=== PATIENT | male | born 1965 | race Caucasian/White ===

== ENCOUNTER 2017-03-11 09:55 | Inpatient (IN) ==
[2017-03-11] MEDS ORDERED: Aspirin 81 MG TAB.CHEW PO ONE (10:08)
[2017-03-11] MEDS ORDERED: 0.9 % Sodium Chloride 500 ML IVC ONE (10:08)
--- NOTE | 2017-03-11 10:27 | Emergency Department Note ---
Disposition Clinical Impression: Chronic alcohol abuse, Hyponatremia Hypertension Qualifiers: Hypertension type: essential hypertension Qualified Code(s): I10 - Essential ( primary) hypertension Disposition: Admitted As Inpatient Condition: Good Time of Disposition: 11:07 Recheck wound or abnormal lab - General Chief Complaint: ED Recheck/Abnormal Lab/Rx Stated Complaint: Dangerously low sodium, left ankle pain Time Seen by Provider: 03/11/17 09:57 Source: patient, family Limitations: no limitations Nursing Notes Reviewed: Yes Vital Signs Reviewed: Yes - History of Present Illness HPI Narrative: Patient presents emergency room at the request of his primary care provider for an abnormal lab result. Patient seen his PCP yesterday had laboratory workup and an image of his ankle completed. He was contacted today to come to the emergency room for a dangerously low sodium. Patient has had this in the past he was just curious as to how low it was today that required him to come to the emergency room. Denied any other symptoms or complaints prior to today's evaluation Pt Subjective Complaint: abnormal lab(s) Symptoms Since Prior Visit: no new symptoms Associated symptoms: none - Related Data Home Medications Medication Instructions Recorded Confirmed Lisinopril [Zestril] 40 mg PO QAM #0 07/31/15 02/02/16 Aspirin Enteric Coated [Aspirin EC] 81 mg PO QAM 01/12/16 02/02/16 Previous Rx's Medication Instructions Recorded Sodium Chloride 1 gm PO TID tablet 01/23/16 Cefdinir [Omnicef] 300 mg PO BID #14 capsule 02/09/16 Folic Acid 1 mg PO DAILY tablet 02/09/16 OxyCODONE/APAP 5/325 [Percocet 1 - 2 tab PO Q4HR PRN #10 tablet 02/09/16 5/325 MG] Thiamine (B-1) [Vitamin B-1] 100 mg PO DAILY tablet 02/09/16 TraMADol [Ultram] 50 mg PO BID #7 tablet 02/09/16 Vitamin B Complex/Vit C/Vit E 1 each PO DAILY tablet 02/09/16 [Stresstab] Allergies Allergy/AdvReac Type Severity Reaction Status Date / Time No Known Allergies Allergy Verified 07/31/15 10:00 All systems ED: reviewed and negative except as stated. Constitutional: Denies: fever Cardiovascular: Denies: chest pain, palpitations, dyspnea on exertion Gastrointestinal: Denies: abdominal pain, nausea, vomiting, diarrhea Genitourinary: Denies: urgency, dysuria Musculoskeletal: Reports: other (<) Psychiatric: Denies: anxiety, depression Past Medical History - Past Medical History Attestation: Yes The following information was validated with the patient. Source: patient, old records reviewed Medical history: Reports: hypertension, peripheral artery disease, other Surgical history: Reports: cataract (Right AKA 01/20/16), LE stent(s) (Left iliac stent), vascular surgery (Right femoral endarterectomy), other (Right AKA 01/18/16 ) Psychiatric history: Reports: no psych history - Social History Smoking Status: Current every day smoker Smokeless Tobacco Status: No Alcohol use: Reports: heavy Drug use: Reports: none Physical Exam - General Limitations: no limitations General appearance: alert, in no apparent distress - Head Head exam: atraumatic, normocephalic, normal inspection - Chest Chest inspection: Present: normal inspection, symmetric chest wall rise - Respiratory Respiratory exam: Present: normal lung sounds bilaterally. Absent: respiratory distress, wheezes, stridor, accessory muscle use - Cardiovascular Cardiovascular exam: Present: normal rhythm, tachycardia, normal heart sounds - Abdominal Exam Abdominal exam: Present: soft, Non-Tender, normal bowel sounds. Absent: tenderness, distention, guarding, rebound, rigidity, Johnson's sign, Rovsing's sign, tenderness at McBurney's Point - Back Exam Back exam: Present: normal inspection, full ROM. Absent: tenderness - Neurological Exam Neurological exam: Present: alert, oriented X3, CN II-XII intact - Psychiatric Psychiatric exam: Present: normal affect, normal mood - Skin Skin exam: Present: warm, dry, intact, normal color Course Course Narrative: Patient seen and examined at that arrival. See history of present illness. 51- year-old male presents to emergency room for evaluation of an abnormal lab. He was called by his PCP and told that he had a dangerously low sodium. Patient has chronic hyponatremia in the past several wall was around 128 to 1:30 range. Patient is known to have alcohol abuse and smoking history issues. Patient does deny any other medical concerns or symptoms this time. Vital signs are reviewed on presentation show a tachycardia and hypertension. He is on hypertensive medications but was stopped from his hydrochlorothiazide secondary to the hyponatremia. Patient is also persistently hypertensive. Patient did just start with a new primary care provider and was started back on his hydrochlorothiazide despite his chronic history of hyponatremia. Patient also was started on a different blood pressure medication. He denies any symptoms has no fevers chills nausea vomiting or diarrhea. Denies chest pain shortness of breath headache or vision changes. His only other complaint was left ankle pain. He was seen by his PCP and had an evaluation with x-ray performed yesterday. I reviewed that imaging evaluation here in the ED. The image was negative for acute bony abnormality. Patient will have laboratory workup completed. We will adjust his blood pressure as needed. Otherwise patient has no other complaints or symptoms. Disposition pending treatment course. Patient is supposed to be on a fluid restriction diet at this time - Reevaluation(s) Reevaluation #1: Patient found to have a sodium of 124. He has been as low as 106 in the past. Patient has no other acute symptoms. EKG shows normal sinus rhythm with no acute pathology. It was reviewed and compared to an EKG done on 02/02/16. At EKG was read as normal as well. Patient this point still has persistently elevated hypertension. Patient will be given a one-time dose Lopressor here in the emergency room as well as discuss her admission here at the hospital secondary to medication related issues causing his hyponatremia. Patient will have this evaluation treatment was completed here in the ER and admission process to be completed for home. Patient is stable. Hospitals patient this time for admission. No acute complications on this time patient has no other complaints at this point. Labs are reviewed and he has no acute signs of end organ damage or related to kidney dysfunction at this time. Last alcohol consumption was yesterday and one beer. No history of delirium tremens. Hospitals will be informed of this Time: 11:03 Reevaluation #2: Patient discussed with the hospitalist Dr. baeza. We reviewed the patient's presentation symptoms medical history including hyponatremia hypertension and chronic alcohol abuse. He accepted the patient for inpatient evaluation and stabilization of his medical condition in medication review. Patient is otherwise stable resting comfortably in bed we will continue to monitor the admission process is completed Time: 11:20 Vital Signs Temperature 98.3 F 03/11/17 09:56 Pulse Rate 109 03/11/17 09:56 Respiratory Rate 18 03/11/17 09:56 Blood Pressure 195/91 03/11/17 09:56 O2 Sat by Pulse Oximetry 100 03/11/17 09:56 Temperature 98.3 F 03/11/17 09:56 Pulse Rate 82 03/11/17 10:25 Respiratory Rate 18 03/11/17 10:25 Blood Pressure 197/103 03/11/17 10:25 O2 Sat by Pulse Oximetry 100 03/11/17 10:25 Oxygen Delivery Oxygen Delivery Room Air Recheck wound or abnormal lab - MDM Narrative Medical decision making narrative: Hyponatremia, hypertension, alcohol abuse - Medical Records Medical records reviewed: Yes I reviewed the patient's medical records. - Lab Data Lab results reviewed: Yes I reviewed the patient's lab results. Result diagrams: 03/11/17 10:22 03/11/17 10:22 - Radiology Data Radiology results reviewed: Yes I reviewed the patient's radiology results. - EKG Data EKG attestation: Yes I reviewed and interpreted this EKG. EKG shows normal: sinus rhythm, axis, intervals, QRS complexes, ST-T waves Rate: normal Rhythm: NSR [place]/QRS: normal T wave inversions noted in: aVL Hyperacute T waves: v2, v3, v4, v5, v6 When compared to previous EKG there are: no significant changes Interpretation: no acute changes Attestation Statement - Attestation Attestation: I personally interviewed and examined this patient and my medical decision- making was reviewed with the ED Resident Physician, Dr. Sheth. I agree with the documented findings, disposition and treatment plan as described except to the extent set forth below. History this 51-year-old white male who is sent as a new primary care physician that he has been seeing for the past week in regards to low sodium levels. Patient has a history of chronic hyponatremia secondary to his daily alcohol drinking. Patient states he drinks 3-4 beers daily and has been hospitalized in the past for hyponatremia that has been relatively euvolemic secondary to beer intake. Patient denies any dizziness or lightheadedness, no chest pain or pressure, no abdominal pain or back pain, no lightheadedness or syncope, no diaphoresis, no nausea vomiting or diarrhea, and no bright red blood per rectum. Patient states he was called by his doctor this morning in regards to his low sodium levels and told to go to the emergency department. Patient's also found to be extremely hypertensive, his med list today shows that he is on lisinopril/hydrochlorothiazide for his blood pressure and states he did take this this morning and has been taking on a regular basis. Apparently according to medical records this is been discontinued by nephrology during one of his prior admissions for hyponatremia but he is with a new primary care physician who restarted his medication in the past week. Patient has really no complaints at bedside today. Patient found to be hyponatremic with a sodium of 124. Patient also has been consistently hypertensive here despite taking his home meds. Remainder of lab evaluation is unremarkable or chronic in nature. Patient's exam, I agree with exam findings as documented in the chart. Patient remains hemodynamically monitored on continuous cardiac monitoring secondary to blood pressure, placed in seizure precautions with low sodium as well as history of EtOH and possible withdrawal. Patient denies any history of alcohol withdrawal or seizure activity when not drinking. Will admit patient for further evaluation and treatment of acute on chronic hyponatremia.
[2017-03-11 10:28] LABS: Basophils % 0.9 %; Eosinophils # 0.1 K/mcL (0.0-0.6); Eosinophils % 1.4 %; Hemoglobin 14.9 g/dL (12.9-16.9); Immature Granulocytes % 0.3 % (0-4); Immature Platelets 7.6 % (1.1-6.1); Lymphocytes # 0.6 K/mcL (0.6-4.6); Lymphocytes % 17.7 %; Mean Corpuscular HGB Conc 36.3 g/dL (31.6-35.5); Mean Corpuscular Hemoglobin 31.8 pg (28.0-33.3); Mean Corpuscular Volume 87.4 fL (83.0-100.0); Mean Platelet Volume 10.1 fL (9.4-12.4); Monocytes # 0.4 K/mcL (0.0-1.3); Neutrophils # 2.4 K/mcL (1.6-8.9); Platelet Count 272 K/mcL (140-400); Red Blood Count 4.69 M/mcL (4.19-5.50); Red Cell Distribution Width 13.3 % (11.5-14.5); Segmented Neutrophils % 69.7 %
[2017-03-11 10:41] LABS: BUN/Creatinine Ratio 18 (6-26); Blood Urea Nitrogen 20 mg/dL (8-26); Carbon Dioxide 25 mEq/L (19-29); Chloride 85 mEq/L (98-109); Glucose 91 mg/dL (70-99); Osmolality,Calculated 260 (280-300); Potassium 4.1 mEq/L (3.5-4.5); Sodium 124 mEq/L (136-145); eGFR For African Americans > 60 (> 60); eGFR For Non-African Americans > 60 (> 60)
[2017-03-11 10:42] LABS: Albumin 4.4 g/dL (3.5-5.0); Albumin/Globulin Ratio 1.3 (1.1-2.2); Bilirubin,Direct 0.5 mg/dL (0.0-0.5); Bilirubin,Indirect 0.8 mg/dL (0.0-1.2); Bilirubin,Total 1.3 mg/dL (0.2-1.2); Globulin 3.3 g/dL (2.4-3.5); Magnesium 2.3 mg/dL (1.6-2.6); Total Protein 7.7 g/dL (6.0-8.3)
[2017-03-11 10:54] LABS: Ethanol < 10 mg/dL (0-10)
[2017-03-11] MEDS ORDERED: *HR* Metoprolol 5 MG/5 ML VIAL IVP ONE (11:00)
[2017-03-11] MEDS ORDERED: Acetaminophen 325 MG TABLET PO PRN (11:39)
[2017-03-11] MEDS ORDERED: Naloxone 0.4 MG/ML INJ IVP PRN (11:39)
[2017-03-11] MEDS ORDERED: *HR* Labetalol 20 MG/4 ML SYRINGE IVP PRN (11:43)
[2017-03-11] MEDS ORDERED: *HR* LORazepam 2 MG/ML VIAL IVP PRN (11:45)
--- NOTE | 2017-03-11 11:52 | Internal Med History&Physical ---
Date of Encounter: 03/11/17 Time of Encounter: 11:30 Assessment and Plan (1) Hypertensive urgency Current visit: Yes Status: Acute Patient with elevated blood pressure. Observation hospital. Will treat with oral and IV antihypertensive medications. Monitor blood pressure closely. Currently does not show any signs of end - organ damage. High-risk for complications. (2) Chronic alcohol abuse Current visit: Yes Status: Chronic Patient with history of chronic alcohol abuse. We will monitor for alcohol withdrawal. Place on [facility] protocol (3) Hyponatremia Current visit: Yes Status: Acute Acute on chronic hyponatremia. Continue free water restriction. Stop hydrochlorothiazide. Continue salt tablets. We will monitor sodium levels. Internal Medicine - H&P: HPI Chief complaint: Abnormal labs Admitted From: Emergency Dept Plans for Post Hospital Care: Home History of present illness: Mr. Ramirez is a 51 year old male patient with a history of chronic hyponatremia with concern for SIADH, chronic alcoholism, hypertension also asked to come to the ER by his primary care provider due to low sodium levels. The patient sodium levels usually is around 130. He had blood work done yesterday which showed a sodium of 124. He denies any dizziness or lightheadedness. The patient was also started on hydrochlorothiazide recently. On arrival to ER, the patient had severely elevated blood pressure. He denies any chest pain, headache, nausea or vomiting. No palpitations. No shortness of breath. He does complain of some left ankle pain which has been dealing with for 2 weeks. He says this has been worked up with an x-ray which did not show any fracture. The patient continues to drink alcohol and drinks about 1 beer daily and 2-3 on weekends. Past Med Surg Social Fam HX - Past Medical History Attestation: Yes The following information was validated with the patient. Source: patient, old records reviewed Medical history: hypertension, peripheral artery disease, other Psychiatric history: no psych history - Past Surgical History Surgical History: cataract (Right AKA 01/20/16), LE stent(s) (Left iliac stent), vascular surgery (Right femoral endarterectomy), other (Right AKA 01/18/16) - Social History Smoking Status: Current every day smoker Smokeless Tobacco Status: No Alcohol use: heavy Drug use: none - Family History Father Adopted: No Family Member Ethnicity: Non- Living Status: Still Living Hx Family Cardiac Disorders: Yes (HTN) Hx Family Cancer: Yes (LUNG CANCER) Mother Adopted: No Living Status: Hx Family Cardiac Disorders: Yes (hypertension) Hx Family Respiratory Disorders: No Hx Family Cancer: No Hx Family GI Disorders: No Hx Family Endocrine Disorder: No Hx Family Neuromuscular Disorders: No Hx Family Neurologic Disorders: No Hx Family HEENT Disorders: No Hx Family Autoimmune Disorders: No Internal Medicine - H&P: Meds Lisinopril [Zestril] 40 mg PO QAM #0 07/31/15 [History] Aspirin Enteric Coated [Aspirin EC] 81 mg PO QAM 01/12/16 [History] Sodium Chloride 1 gm PO TID tablet 01/23/16 [Rx] Cefdinir [Omnicef] 300 mg PO BID #14 capsule 02/09/16 [Rx] Folic Acid 1 mg PO DAILY tablet 02/09/16 [Rx] OxyCODONE/APAP 5/325 [Percocet 5/325 MG] 1 - 2 tab PO Q4HR PRN #10 tablet [Rx] Thiamine (B-1) [Vitamin B-1] 100 mg PO DAILY tablet 02/09/16 [Rx] TraMADol [Ultram] 50 mg PO BID #7 tablet 02/09/16 [Rx] Vitamin B Complex/Vit C/Vit E [Stresstab] 1 each PO DAILY tablet 02/09/16 [Rx] Allergies No Known Allergies Allergy (Verified 07/31/15 10:00) All Systems PM: A 10-system review of systems was performed and is negative for pertinent findings except as documented above in the HPI. - Constitutional Constitutional: no chills, no fever(s), no night sweats - EENT Eyes: no change in vision, no discharge, no pain, no photophobia Ears: no ear discharge, no ear pain, no tinnitus Nose, mouth and throat: no dysphagia, no nasal discharge, no neck pain, no sore throat - Cardiovascular Cardiovascular ROS IM: no chest pain, no diaphoresis, no dyspnea, no lightheadedness, no palpitations, no syncope - Respiratory Respiratory: no cough, no dyspnea, no wheezing, no excessive phlegm production - Gastrointestinal Gastrointestinal: no abdominal pain, no diarrhea, no hematemesis, no hematochezia, no melena, no nausea, no vomiting - Musculoskeletal Musculoskeletal ROS IM: no numbness, no tingling - Integumentary Integumentary IM: no rash, no unusual bruising - Neurological Neurological ROS: no confusion, no convulsions, no focal weakness, no numbness, no tingling, no tremor(s) - Hematologic/Lymphatic Hematologic/Lymphatic: no easy bruising - Constitutional Vitals: Temp Pulse Resp BP Pulse Ox 98.3 F 82 16 212/118 100 03/11/17 09:56 03/11/17 10:25 03/11/17 11:30 03/11/17 11:30 03/11/17 10:25 General appearance: Present: cooperative, A&O X 3, pleasant, no acute distress, answers questions appropriately - Eye Eye exam: Present: EOMI, PERRL - Neck Neck exam general surgery: Present: supple, trachea midline. Absent: lymphadenopathy - Cardiovascular Cardiovascular exam: Present: RRR, +S1, +S2. Absent: diastolic murmur, gallop, rubs, systolic murmur - GI/Abdominal GI/Abdominal exam: Present: normal bowel sounds, soft, no peritoneal signs. Absent: distended, tenderness - Extremities Exam Extremities exam: Present: warm, radial pulses palpable and symetrical. Absent : calf tenderness, cyanotic, pedal edema Additional comments: Status post right AKA - Neurological Exam Neurological exam: Present: CN II-XII intact, oriented X3, no focal deficits. Absent: facial droop, speech deficit - Skin Skin exam: Present: dry, intact Internal Med - H&P Results - Labs CBC & Chem 7: 03/11/17 10:22 03/11/17 10:22 - Impressions Impressions Chest X-Ray 03/11/17 10:08 IMPRESSION: No acute cardiopulmonary disease. D/ / Jose Reilly MD / Jose Reilly MD Interpreting Provider: Jose Reilly MD - Attending Attestation This document has been at least partially created by [employer] recognition technology by Dr. Stewart. Errors in grammar, wording or other phrases may exist. If errors are found after the documentation is signed, they will be addressed individually in the addendum section of this document when appropriate.
[2017-03-11] MEDS: Lisinopril 20 MG TABLET PO SCH (12:35)
--- NOTE | 2017-03-11 17:52 | Electrocardiograph Report ---
[place] [id number] Test Date: 2017-03-11 Pat Name: Shay Ramirez Department: 105 Room: [facility] Gender: M Vision Specialist: LEXIE : [id number] Requested By: Demetrius Sheth Order Number: [id number] Reading MD: Agatha Braun Measurements Intervals [place] Rate: 79 P: 69 RI: 127 QRS: 84 QRSD: 90 T: 72 QT: 363 QTc: 398 Interpretive Statements SINUS RHYTHM TALL T-WAVES, SUGGESTS HYPERKALEMIA Electronically Signed On 03-11-2017 17:50:50 EDT by Agatha Braun
[2017-03-11] MEDS: traMADol 50 MG TABLET PO PRN (22:05)
[2017-03-11] MEDS ORDERED: Ketorolac 30 MG/ML VIAL IVP ONE (22:57)
[2017-03-12] MEDS ORDERED: *HR* Heparin 5,000 UNIT/ML VIAL IVP PRN (01:47)
[2017-03-12] MEDS ORDERED: *HR* Heparin 5,000 UNIT/ML VIAL IVP ONE (01:47)
--- NOTE | 2017-03-12 02:21 | Event Note ---
Date of Encounter: 03/12/17 Time of Encounter: 01:50 I was called that the above pt with severe PAD was complaining of pain in the left foot, his pulses were not palpable and doppler signals were weak, ADAM ordered was reported as 0.07. Limited exam showed a male who looked far older than his stated age, sitting in bed with no sign of pain or distress, he had right AKA, left foot was of normal color except the toes which were all red and had flaky skin overlying them, the foot was of normal warmth, he could move them without pain, pulses were not palpable. We will start patient on heparin drip and consult vascular surgery to weigh in.
[2017-03-12 02:58] LABS: Eosinophils # 0.1 K/mcL (0.0-0.6); Mean Corpuscular Hemoglobin 32.2 pg (28.0-33.3); Mean Corpuscular Volume 86.4 fL (83.0-100.0); Mean Platelet Volume 10.2 fL (9.4-12.4); Platelet Count 234 K/mcL (140-400); Red Blood Count 3.82 M/mcL (4.19-5.50); Red Cell Distribution Width 13.2 % (11.5-14.5)
[2017-03-12 02:59] LABS: Hemoglobin 12.3 g/dL (12.9-16.9); INR 1.1; Mean Corpuscular HGB Conc 37.3 g/dL (31.6-35.5); Prothrombin Time 11.8 Seconds (9.4-12.1)
[2017-03-12 03:02] LABS: Activated Partial Thrombo Time 29.9 Seconds (26.0-36.0)
[2017-03-12] MEDS: Heparin 25,000 UNIT/500 ML D5W 25,000 UNIT/500 ML MLS IVC SCH (03:03)
[2017-03-12 03:05] LABS: BUN/Creatinine Ratio 25 (6-26); Blood Urea Nitrogen 22 mg/dL (8-26); Calcium 8.9 mg/dL (8.6-10.8); Carbon Dioxide 23 mEq/L (19-29); Chloride 90 mEq/L (98-109); Glucose 89 mg/dL (70-99); Osmolality,Calculated 259 (280-300); Potassium 3.6 mEq/L (3.5-4.5); Sodium 123 mEq/L (136-145); eGFR For African Americans > 60 (> 60); eGFR For Non-African Americans > 60 (> 60)
[2017-03-12 03:23] LABS: Lymphocytes # 1.4 K/mcL (0.6-4.6); Monocytes # 0.2 K/mcL (0.0-1.3); Neutrophils # 2.7 K/mcL (1.6-8.9)
[2017-03-12 03:24] LABS: Platelet Estimate Normal (Normal)
[2017-03-12] MEDS: Lisinopril 20 MG TABLET PO SCH (08:22)
[2017-03-12] MEDS: Folic Acid 1 MG TABLET PO SCH (08:23)
[2017-03-12] MEDS: Thiamine (B-1) 100 MG TABLET PO SCH (08:23)
--- NOTE | 2017-03-12 09:17 | Internal Med Progress Note ---
Date of Encounter: 03/12/17 Time of Encounter: 09:11 - Assessment and plan (1) Critical ischemia of lower extremity Current Visit: No Status: Acute Assessment and plan: appears chronic and severe vascular surgery consulted left toes apears superimposed fungal infection will consult poditric as well (2) Hypertension Current Visit: No Status: Chronic Assessment and plan: uncontrolled add coreg and add norvasc Qualifiers: Hypertension type: essential hypertension Qualified Code(s): I10 - Essential (primary) hypertension (3) Tobacco abuse Current Visit: No Status: Chronic Assessment and plan: chronic (4) Chronic anemia Current Visit: No Status: Chronic Assessment and plan: chronic (5) Chronic hyponatremia Current Visit: No Status: Chronic Assessment and plan: due to beer potomania will reconsult nephrology - Subjective Interval history: Patient with history of hypertension, hyponatremia, alcoholism, and vascular disease, had a right AKA, smoking history patient was admitted from primary physician office sent to the emergency room due to severe hyponatremia sodium was 124 patient yesterday was seen by night physician due to left foot pain and vascular surgery has been consult . ADAM shows as severe vascular insufficiency of 0.07. Leg is warm at this point appear to be a chronic also appears he may have some fungal infection of the toes his sodium is 123 this morning and I will consult nephrology no acute complains - Constitutional Vitals: Temp Pulse Resp BP Pulse Ox 98.5 F 92 16 157/89 98 03/12/17 07:31 03/12/17 07:31 03/12/17 07:31 03/12/17 07:31 03/12/17 07:31 General appearance: Present: cooperative, A&O X 3, pleasant, no acute distress, answers questions appropriately - Eye Eye exam: Present: PERRL, conjuntiva pink, sclera anicteric Pupils: Present: PERRL - Neck Neck exam general surgery: Present: supple, trachea midline. Absent: lymphadenopathy - Respiratory Respiratory exam: Present: CTAB. Absent: accessory muscle use, rales, rhonchi, wheezes - Cardiovascular Cardiovascular exam: Present: RRR, +S1, +S2. Absent: diastolic murmur, gallop, rubs, systolic murmur - GI/Abdominal GI/Abdominal exam: Present: normal bowel sounds, soft, no peritoneal signs. Absent: distended, tenderness - Extremities Exam Extremities exam: Present: tenderness, warm Internal Medicine: Result - Labs CBC & Chem 7: 03/12/17 02:36 03/12/17 02:36 Labs: Short CBC 03/12/17 Range/Units 02:36 WBC 4.3 (4.3-11.1) K/mcL Hgb 12.3 L D (12.9-16.9) g/dL Hct 33.0 L (37.5-50.1) % Plt Count 234 (140-400) K/mcL Neutrophils # 2.7 (1.6-8.9) K/mcL BMP 03/12/17 02:36 Sodium 123 L Potassium 3.6 Chloride 90 L Carbon Dioxide 23 BUN 22 Creatinine 0.89 Glucose 89 Calcium 8.9 - ABG Interpretation ABG results: PT/INR, D-dimer PT 11.8 Seconds (9.4-12.1) 03/12/17 02:36 - VTE Documentation of Mechanical Device: Intermittent pneumatic compression device Consult Discharge Plan - Plan Referrals: Farzad Sharp DO [Primary Care Provider] -
--- NOTE | 2017-03-12 10:02 | Podiatry Consult Note ---
Date of Encounter: 03/12/17 Time of Encounter: 09:59 Assessment and Plan (1) Tinea pedis of left foot Current visit: Yes Status: Acute reviewed with patient that I do not think he has a bacterial soft tissue infection, but he does appear to have fungus on his left foot. ordered miconazole to be appled to left foot twice daily. upon discharge he will require an Rx for ciclopirox 0.77% gel. would avoid oral lamisil with his elevated liver enzymes and h/o alcohol abuse. f/u as out patient with podiatry. (2) PVD (peripheral vascular disease) Current visit: Yes Status: Acute burning pain around his ankle and in his foot may be related to his diminished blood flow, f/u vascular for evaluation History of Present Illness Chief complaint: left foot toes itching, pain HPI: Mr. Ramirez is a 51 year old male admitted with hyponatremia. He complains of his left foot around the toes being itching for a few days. He says it is getting worse and he is trying not to scratch them. He says he has white flaky skin and he has been rubbing them and developed some dark spots on the toes where he was rubbing. He complains of pain around the ankle as well and says he gets a burning pain in his left foot and the toes turn red periodically and goes away after about a half hour. denies f/c/n/v/sob/cp. He has a right AKA. Past Med Surg Social Fam HX - Past Medical History Medical history: hypertension, peripheral artery disease, other Psychiatric history: no psych history - Past Surgical History Surgical History: cataract, LE stent(s), vascular surgery, other - Social History Smoking Status: Current every day smoker Smokeless Tobacco Status: No Alcohol use: heavy Drug use: none - Family History Father Adopted: No Family Member Ethnicity: Non- Living Status: Still Living Hx Family Cardiac Disorders: Yes (HTN) Hx Family Cancer: Yes (LUNG CANCER) Mother Adopted: No Living Status: Hx Family Cardiac Disorders: Yes (hypertension) Hx Family Respiratory Disorders: No Hx Family Cancer: No Hx Family GI Disorders: No Hx Family Endocrine Disorder: No Hx Family Neuromuscular Disorders: No Hx Family Neurologic Disorders: No Hx Family HEENT Disorders: No Hx Family Autoimmune Disorders: No Medications and Allergies Aspirin Enteric Coated [Aspirin EC] 81 mg PO QAM 01/12/16 [History] OxyCODONE/APAP 5/325 [Percocet 5/325 MG] 1 - 2 tab PO Q4HR PRN #10 tablet [Rx] TraMADol [Ultram] 50 mg PO BID #7 tablet 02/09/16 [Rx] Acetaminophen [Tylenol] 1,000 mg PO Q6HR PRN 03/11/17 [History] Ibuprofen [Advil] 400 mg PO Q6H PRN 03/11/17 [History] Lisinopril/Hydrochlorothiazide [Zestoretic 20-12.5 mg Tablet] 1 tab PO DAILY [History] Allergies No Known Allergies Allergy (Verified 07/31/15 10:00) All Systems Reviewed: A 10-system review of systems was performed and is negative for pertinent findings except as documented above in the HPI. Physical Exam - Constitutional Vitals: Temp Pulse Resp BP Pulse Ox 98.5 F 92 16 157/89 98 03/12/17 07:31 03/12/17 07:31 03/12/17 07:31 03/12/17 07:31 03/12/17 07:31 General appearance: no acute distress - Ankle & Foot Exam: left foot no edema, capillary refill time is 3 sec x 5 digits of the left foot. there is flaky skin outside the skin lines consistent with tinea pedis. decreased protective sensation left foot. left foot is warm to touch, nails are thick, dystrophic, yellow-brown and have subungual debris. he has full ROM and at the left ankle. there is no erythema or edema of the ankle. no interdigital maceration. Results - Labs Result Diagrams: 03/12/17 02:36 03/12/17 02:36 Labs: Abnormal lab results RBC 3.82 M/mcL (4.19-5.50) L 03/12/17 02:36 Hgb 12.3 g/dL (12.9-16.9) L D 03/12/17 02:36 Hct 33.0 % (37.5-50.1) L 03/12/17 02:36 MCHC 37.3 g/dL (31.6-35.5) H 03/12/17 02:36 Immature Plt Fraction 7.6 % (1.1-6.1) H 03/11/17 10:22 Sodium 123 mEq/L (136-145) L 03/12/17 02:36 Chloride 90 mEq/L (98-109) L 03/12/17 02:36 Calculated Osmolality 259 (280-300) L 03/12/17 02:36 Total Bilirubin 1.3 mg/dL (0.2-1.2) H 03/11/17 10:22 ALT 64 Units/L (0-55) H 03/11/17 10:22 Alkaline Phosphatase 238 Units/L (38-126) H 03/11/17 10:22 H & H 03/12/17 Range/Units 02:36 Hgb 12.3 L D (12.9-16.9) g/dL Hct 33.0 L (37.5-50.1) % All other labs normal. Consult Discharge Plan - Plan Referrals: ColFarzad yan DO [Primary Care Provider] - (patient will need call his PCP himself. per [facility])
--- NOTE | 2017-03-12 12:40 | Nephrology Consult Note ---
Date of Encounter: 03/12/17 Time of Encounter: 12:36 Assessment and Plan (1) Hyponatremia Current Visit: Yes Status: Acute Patient with acute on chronic hyponatremia that is likely multifactorial. Patient is known to have chronic hyponatremia likely from beer potomania His baseline is not established, but is likely the high 120s or low 130s based on labs available to me. His acute hyponatremia is likey related to HCTZ and nausea which can release ADH. His most recent decline in the hospital is likely related to the D5 carrier solution for heparin. I will order a work-up for his hyponatremia. I will follow his sodium closely as I would not want it to increase by more than 6-8meq/l/24hours. I recommend free water restriction. Will give a trial of gentle fluid administration. (2) Chronic alcohol abuse Current Visit: Yes Status: Chronic Per primary team. CIWA protocol. (3) Hypertension Current Visit: Yes Status: Chronic D/c HCTZ. Agree with antihypertensive regimen. His blood pressure seems to be improving. Titrate antihypertensive medication as needed. Will check TSH, renin and aldosterone. Qualifiers: Hypertension type: essential hypertension Qualified Code(s): I10 - Essential (primary) hypertension (4) PVD (peripheral vascular disease) Current Visit: Yes Status: Acute per primary team. He is on heparin. I have contacted pharmacy to change the carrier solution to 0.9, but they report that they do not carry heparin for the floor with a 0.9 carrier solution. Podiatry following. (5) Nausea Current Visit: Yes Status: Acute Etiology is unclear and may be gone. He has an appetite and wants to eat. History of Present Illness - Reason for Consult Consult date: 03/12/17 hyponatremia - Chief Complaint Hyponatremia - History of Present Illness 51 yo man with a history of hyponatremia who presents after his primary care team found that he had a low sodium. Patient reports he has been in his usual state of health with the exception of occasional nausea over the last few weeks without emesis. His primary care team has been adjusting his antihypertensive regimen and a little over a week ago added HCTZ. The patient reports continued consumption of 2 12 ounce beers daily. He denies chest pain, shortness of breath, or other complaint. Past Med Surg Social Fam HX - Past Medical History Medical history: hypertension, peripheral artery disease, other Psychiatric history: no psych history - Past Surgical History Surgical History: cataract, LE stent(s), vascular surgery, other - Social History Smoking Status: Current every day smoker Smokeless Tobacco Status: No Alcohol use: heavy Drug use: none - Family History Father Adopted: No Family Member Ethnicity: Non- Living Status: Still Living Hx Family Cardiac Disorders: Yes (HTN) Hx Family Cancer: Yes (LUNG CANCER) Mother Adopted: No Living Status: Hx Family Cardiac Disorders: Yes (hypertension) Hx Family Respiratory Disorders: No Hx Family Cancer: No Hx Family GI Disorders: No Hx Family Endocrine Disorder: No Hx Family Neuromuscular Disorders: No Hx Family Neurologic Disorders: No Hx Family HEENT Disorders: No Hx Family Autoimmune Disorders: No Medications and Allergies Aspirin Enteric Coated [Aspirin EC] 81 mg PO QAM 01/12/16 [History] OxyCODONE/APAP 5/325 [Percocet 5/325 MG] 1 - 2 tab PO Q4HR PRN #10 tablet [Rx] TraMADol [Ultram] 50 mg PO BID #7 tablet 02/09/16 [Rx] Acetaminophen [Tylenol] 1,000 mg PO Q6HR PRN 03/11/17 [History] Ibuprofen [Advil] 400 mg PO Q6H PRN 03/11/17 [History] Lisinopril/Hydrochlorothiazide [Zestoretic 20-12.5 mg Tablet] 1 tab PO DAILY [History] Allergies No Known Allergies Allergy (Verified 07/31/15 10:00) Review of Systems All Systems: reviewed and no additional remarkable complaints except as stated ( as documented in the HPI.) Exam - Vital Signs Vital signs: Initial Vital Signs Temp Pulse Resp BP Pulse Ox 98.3 F 109 18 195/91 100 03/11/17 09:56 03/11/17 09:56 03/11/17 09:56 03/11/17 09:56 03/11/17 09:56 Vital Signs - Last 8 Hours Temp Pulse Resp BP Pulse Ox 03/12/17 07:31 98.5 F 92 16 157/89 98 Intake and Output 03/11/17 03/12/17 03/12/17 23:59 07:59 15:59 Intake Total 0 / 0 57 / 57 Output Total 750 / 750 300 / 300 Balance -750 / -750 -300 / -300 57 / 57 Intake: IV Fluids / 57 Heparin 25,000 UNIT/500 / 57 ML D5W 25,000 unit In 500 ml @ 12 UNIT/KG/HR 7.62 mls/hr IVC .Q24H [facility] Rx#: [id number] Oral 0 / 0 0 / 0 Output: Urine 750 / 750 300 / 300 Other: Meal NPO Percent of Meal Consumed 0% Weight 33.067 kg Patient Weight 03/12/17 23:59 Weight 33.067 kg - General Appearance General appearance: well-developed, well-nourished, chronically ill EENT: ATNC Neck: supple Respiratory: clear Cardiology: no edema, regular rate, regular rhythm Gastrointestinal: normoactive bowel sounds, no tenderness Integumentary: warm and dry Neurologic: alert and oriented x3 Musculoskeletal: no cyanosis Psychiatric: mood/affect appropriate Results - Lab Results 03/12/17 02:36 03/12/17 02:36 Most recent lab results Calcium 8.9 mg/dL (8.6-10.8) 03/12/17 02:36 Magnesium 2.3 mg/dL (1.6-2.6) 03/11/17 10:22 Consult Discharge Plan - Plan Referrals: Farzad Sharp DO [Primary Care Provider] - (patient will need call his PCP himself. per Dr. Yu Office)
[2017-03-12] MEDS ORDERED: 0.9 % Sodium Chloride 500 ML IVC ONE (13:00)
[2017-03-12 13:51] LABS: Thyroid Stimulating Hormone 1.785 mcIU/mL (0.350-4.840)
[2017-03-12] MEDS ORDERED: 0.9 % Sodium Chloride 500 ML ONE (14:27)
[2017-03-12] MEDS: Miconazole 2% cream 118 GM TUBE TP SCH ×2 (14:32→22:49)
[2017-03-12] MEDS: *HR* Heparin 5,000 UNIT/ML VIAL IVP PRN (17:51)
--- NOTE | 2017-03-12 18:00 | Vascular/Endovasc Consult Note ---
Date of Encounter: 03/12/17 Time of Encounter: 12:50 Assessment and Plan (1) Atherosclerotic peripheral vascular disease with rest pain Current Visit: Yes Status: Chronic The patient has a long history of peripheral vascular disease and has previously undergone a right above knee amputation. He currently ambulates with a prosthesis. He reports chronic intermittent left foot and ankle pain. HIs foot is warm with intact sensory and motor function on exam today. He has a fungal infection at his toes and was evaluated by podiatry. The patient has a diminished pulse exam and his left ADAM was noted to be 0.15. He has no signs or symptomat of acute limb threatening ischemia. He will require further evaluation with angiography after his acute issues are resolved. He is currently on a heparin drip. (2) Hypertension Current Visit: Yes Status: Chronic He was counseled regarding atherosclerotic risk factor reduction. Qualifiers: Hypertension type: essential hypertension Qualified Code(s): I10 - Essential (primary) hypertension (3) Chronic anemia Current Visit: Yes Status: Chronic (4) Chronic hyponatremia Current Visit: Yes Status: Chronic (5) COPD (chronic obstructive pulmonary disease) with emphysema Current Visit: Yes Status: Chronic Qualifiers: Emphysema type: panlobular Qualified Code(s): J43.1 - Panlobular emphysema (6) Tobacco abuse Current Visit: Yes Status: Chronic He was counseled regarding smoking cessation. - History of Present Illness Consult date: 03/12/17 Requesting physician: Nitesh Parks Consult reason: Peripheral vascular disease Chief complaint: left leg pain History of present illness: Mr. Ramirez is a 51 year old male with an extensive history of peripheral vascular disease. He has undergone multiple procedures on the right lower extremity and ultimately required a right above knee amputation. The patient presented to the ER with hyponatremia and was admitted for further evaluation and management. The patient complained of leg foot pain overnight and was seen by the hospitalist group. Vascular labs were ordered and noted to be abnormal. Vascular Surgery was not notified of the consultation overnight. However, the patient was noted to be on the vascular consult list and review of the records revealed the consult in the orders. The patient reports chronic intermittent pain in the left forefoot and ankle. He reports that the pain has subsided since last night. He denies any disabling claudication when using his prosthesis. He denies rest pain, ulceration or gangrene. He denies motor or sensory loss. He reports a fungal infection in the left toes. He denies chest pain or shortness of breath. Past Med Surg Social Fam HX - Past Medical History Medical history: hypertension, peripheral artery disease, other Psychiatric history: no psych history - Past Surgical History Surgical History: cataract, LE stent(s), vascular surgery (right above knee ampuation), other - Social History Smoking Status: Current every day smoker Smokeless Tobacco Status: No Alcohol use: heavy Drug use: none - Family History Father Adopted: No Family Member Ethnicity: Non- Living Status: Still Living Hx Family Cardiac Disorders: Yes (HTN) Hx Family Cancer: Yes (LUNG CANCER) Mother Adopted: No Living Status: Hx Family Cardiac Disorders: Yes (hypertension) Hx Family Respiratory Disorders: No Hx Family Cancer: No Hx Family GI Disorders: No Hx Family Endocrine Disorder: No Hx Family Neuromuscular Disorders: No Hx Family Neurologic Disorders: No Hx Family HEENT Disorders: No Hx Family Autoimmune Disorders: No Medications and Allergies Aspirin Enteric Coated [Aspirin EC] 81 mg PO QAM 01/12/16 [History] OxyCODONE/APAP 5/325 [Percocet 5/325 MG] 1 - 2 tab PO Q4HR PRN #10 tablet [Rx] TraMADol [Ultram] 50 mg PO BID #7 tablet 02/09/16 [Rx] Acetaminophen [Tylenol] 1,000 mg PO Q6HR PRN 03/11/17 [History] Ibuprofen [Advil] 400 mg PO Q6H PRN 03/11/17 [History] Lisinopril/Hydrochlorothiazide [Zestoretic 20-12.5 mg Tablet] 1 tab PO DAILY [History] Allergies No Known Allergies Allergy (Verified 07/31/15 10:00) All Systems Review: A 10-system review of systems was performed and is negative for pertinent findings except as documented above in the HPI. - Constitutional Constitutional: no chills, no fatigue, no fever(s) - Cardiovascular Cardiovascular: no chest pain at rest, no chest pain with exertion, no dyspnea at rest, no dyspnea on exertion Exam Vital Signs, Last 4 Hours Temp Pulse Resp BP Pulse Ox 03/12/17 16:51 98.6 F 88 14 157/90 99 General: Present: Conversant, No Apparent Distress HEENT: Present: Atraumatic, Normocephaly, Pupils equal Neck: Absent: JVD, Lymphadenopathy, Left Carotid bruit, Right Carotid bruit Cardiac: Present: Reg Rate and Rhythm, Normal S1 and S2, No Murmur Lungs: Present: Normal Breath Sounds, No Wheeze, Rales, Rhonchi Neuro: Present: Alert and responsive, No focal deficits noted, Motor nerves grossly intact, Sensory nerves grossly intact Abdomen: Present: Soft, Non-tender. Absent: Masses Vascular: Present: Normal capillary refill, Amputation(s) (right above knee healed). Absent: Cyanosis, Edema Skin: Present: No rashes noted on visualized skin, Other (fungal infection at left forefoot) Musculoskeletal: Present: No Chest Wall Tenderness Consult Discharge Plan - Plan Referrals: Farzad Sharp DO [Primary Care Provider] - (patient will need call his PCP himself. per Dr. Yu Office)
[2017-03-12] MEDS: traMADol 50 MG TABLET PO PRN (22:49)
[2017-03-13 00:58] LABS: BUN/Creatinine Ratio 18 (6-26); Blood Urea Nitrogen 19 mg/dL (8-26); Calcium 8.5 mg/dL (8.6-10.8); Carbon Dioxide 23 mEq/L (19-29); Chloride 93 mEq/L (98-109); Glucose 103 mg/dL (70-99); Osmolality,Calculated 261 (280-300); Phosphorous 3.2 mg/dL (2.3-4.7); Potassium 3.6 mEq/L (3.5-4.5); Sodium 124 mEq/L (136-145); eGFR For African Americans > 60 (> 60); eGFR For Non-African Americans > 60 (> 60)
[2017-03-13 00:59] LABS: Alanine Aminotransferase 33 Units/L (0-55); Albumin/Globulin Ratio 1.4 (1.1-2.2); Alkaline Phosphatase 142 Units/L (38-126); Aspartate Amino Transferase 14 Units/L (5-34); BUN/Creatinine Ratio 20 (6-26); Bilirubin,Total 0.7 mg/dL (0.2-1.2); Blood Urea Nitrogen 20 mg/dL (8-26); Calcium 8.5 mg/dL (8.6-10.8); Carbon Dioxide 22 mEq/L (19-29); Chloride 92 mEq/L (98-109); Globulin 2.4 g/dL (2.4-3.5); Glucose 104 mg/dL (70-99); Osmolality,Calculated 259 (280-300); Potassium 3.6 mEq/L (3.5-4.5); Sodium 123 mEq/L (136-145); eGFR For African Americans > 60 (> 60); eGFR For Non-African Americans > 60 (> 60)
[2017-03-13 01:01] LABS: Albumin 3.3 g/dL (3.5-5.0); Total Protein 5.7 g/dL (6.0-8.3)
[2017-03-13] MEDS ORDERED: 0.9 % Sodium Chloride 500 ML ONE ×2 (01:12→21:52)
[2017-03-13] MEDS: *HR* Heparin 5,000 UNIT/ML VIAL IVP PRN ×3 (01:27→23:37)
[2017-03-13] MEDS: traMADol 50 MG TABLET PO PRN ×2 (05:19→15:13)
[2017-03-13] MEDS: Folic Acid 1 MG TABLET PO SCH (08:00)
[2017-03-13] MEDS: Lisinopril 20 MG TABLET PO SCH (08:01)
[2017-03-13] MEDS: Thiamine (B-1) 100 MG TABLET PO SCH (08:01)
[2017-03-13] MEDS: Miconazole 2% cream 118 GM TUBE TP SCH ×2 (08:03→20:23)
[2017-03-13] MEDS ORDERED: amLODIPine 5 MG TABLET PO SCH (09:00)
--- NOTE | 2017-03-13 10:41 | Arterial Study Report ---
LE Arterial Physiologic Study Patient Name:Shay Ramirez Order Number:[id number] Procedure Date:03/12/2017 Date:1965Age:51 yrs Gender:Male Lt BP:213 / mmHg Rt.BP:210 / mmHgHeart Rate: Location:[facility] Room #: 51 Office Bookkeeper:Kendy Larkin RVT, YUNI Referring MD:Nitesh Parks MD mba internship:DO Eli Clinton MD:Nik Trujillo MD Primary Indications:r/o ischemic leg Risk Factors Yes/No Hypertension Yes Smoking Current Yes Impressions: Recommendations: After imaging the patient was admitted to the hospital. Test completed on 03/12/2017 at 2:10:41 am. Critical findings reported to Dr. Parks by phone at 2:10:55 am on 03/12/2017 by Kendy Larkin RVT, RDCS. Findings LE Arterial Physiologic Exam: Segmental Pressures: Left: The left posterior tibial pressure is 15 mmHg with an index of 0.07. The left dorsalis pedis pressure is 33 mmHg with an index of 0.15. PVR: Left: The PVR waveforms are severely diminished in the left ankle. Segmental Pressures Side Location Pressure Index Result Left Posterior Tibial 15 0.07 Left Dorsalis Pedis 33 0.15 Ankle Brachial Index Right Systolic Diastolic ADAM Brachial 210 Left Systolic Diastolic ADAM Brachial 213 0.15 Dorsalis Pedis 33 0.15 Posterior Tibial 15 0.07 Updated by Nik Trujillo MD on 03/13/2017 10:35:19 AM with Status of Final electronically signed on 03/13/2017 10:35:44 AM with status of Final
--- NOTE | 2017-03-13 11:39 | Nephrology Progress Note ---
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 I recommend fluid restriction, but he will have a source of free water with his heparin infusion. He seems to have responded to to limited saline infusion yesterday, but is back to a serum sodium of 123. His TSH and random cortisol seem normal. Will start low dose aquaretic. He will need close monitoring of his sodium level. It should not rise above 129 in the next 24 hours. (2) Chronic alcohol abuse Current Visit: Yes Status: Chronic Per primary team. (3) Hypertension Current Visit: Yes Status: Chronic Uncontrolled hypertension. Continue titration of his antihypertensive medication. Will increase amlodipine to 5mg po bid. Qualifiers: Hypertension type: essential hypertension Qualified Code(s): I10 - Essential (primary) hypertension (4) PVD (peripheral vascular disease) Current Visit: Yes Status: Acute Per primary team and vascular surgery. (5) Nausea Current Visit: Yes Status: Acute Resolved. Subjective Principal diagnosis: Hyponatremia Interval history: Patient seen and evaluated. He has no new complaint. His left foot feels better. Review of systems otherwise is stable. Objective - Vital Signs Vital signs: Vital Signs Temp Pulse Resp BP Pulse Ox 03/13/17 07:04 97.8 F 80 13 172/79 97 03/13/17 04:58 175/90 03/13/17 04:21 97.8 F 75 16 190/98 97 03/12/17 23:56 97.9 F 90 18 172/90 98 03/12/17 19:55 98.4 F 90 18 143/71 97 03/12/17 16:51 98.6 F 88 14 157/90 99 03/12/17 13:03 97.9 F 74 14 145/81 98 Intake and Output 03/12/17 03/13/17 03/13/17 23:59 07:59 15:59 Intake Total 819.7 / 819.7 804.6 / 804.6 120 / 120 Output Total 600 / 600 400 / 400 0 / 0 Balance 219.7 / 219.7 404.6 / 404.6 120 / 120 Intake: IV Fluids 49.7 / 49.7 804.6 / 804.6 0.9 % Sodium Chloride 500 500 / 500 ML As .ROUTE .[facility] Rx#:[id number] Heparin 25,000 UNIT/500 49.7 / 49.7 304.6 / 304.6 ML D5W 25,000 unit In 500 ml @ 12 UNIT/KG/HR 7.62 mls/hr IVC .Q24H [facility] Rx#: [id number] Oral 770 / 770 120 / 120 Output: Urine 600 / 600 400 / 400 0 / 0 Other: Meal Dinner Breakfast Percent of Meal Consumed 90% 100% Weight 34.564 kg Patient Weight 03/13/17 23:59 Weight 34.564 kg - General Appearance General appearance: Present: well-developed, well-nourished EENT: Present: ATNC Neck: Present: supple Respiratory: Present: clear Cardiology: Present: no edema, regular rate, regular rhythm Gastrointestinal: Present: normoactive bowel sounds, no tenderness Integumentary: Present: warm and dry Neurologic: Present: alert and oriented x3 Musculoskeletal: Present: no cyanosis Psychiatric: Present: mood/affect appropriate - Lab 03/12/17 02:36 03/13/17 00:30 Most recent lab results Calcium 8.5 mg/dL (8.6-10.8) L 03/13/17 00:30 Phosphorus 3.2 mg/dL (2.3-4.7) 03/13/17 00:30 Magnesium 2.3 mg/dL (1.6-2.6) 03/11/17 10:22 - VTE Documentation of Mechanical Device: Intermittent pneumatic compression device Consult Discharge Plan - Plan Referrals: Farzad Sharp DO [Primary Care Provider] - (patient will need call his PCP himself. per [facility])
--- NOTE | 2017-03-13 13:37 | Internal Med Progress Note ---
Date of Encounter: 03/13/17 Time of Encounter: 13:35 - Assessment and plan (1) Critical ischemia of lower extremity Current Visit: No Status: Acute Assessment and plan: chronic vacular insufficiency per vascular surgery needs angiogram suggests proceed with angiogram no mejor medical issues at this point (2) Hypertension Current Visit: Yes Status: Chronic Assessment and plan: BP much better Qualifiers: Hypertension type: essential hypertension Qualified Code(s): I10 - Essential (primary) hypertension (3) Tobacco abuse Current Visit: Yes Status: Chronic Assessment and plan: chronic (4) Chronic anemia Current Visit: Yes Status: Chronic Assessment and plan: mild hgb stable (5) Chronic hyponatremia Current Visit: Yes Status: Chronic Assessment and plan: appreciate nephrology evaluation and treatment SIADH - Subjective Interval history: Patient with history of hypertension, hyponatremia, alcoholism, and vascular disease, had a right AKA, smoking history patient was admitted from primary physician office sent to the emergency room due to severe hyponatremia sodium was 124 patient yesterday was seen by night physician due to left foot pain and vascular surgery has been consult . ADAM shows as severe vascular insufficiency of 0.07. Leg is warm at this point appear to be a chronic also appears he may have some fungal infection of the toes his sodium is 123 this morning and I will consult nephrology no acute complains today feels better appreciate nephrology and vascular surgery evaluation and treatment - Constitutional Vitals: Temp Pulse Resp BP Pulse Ox 97.9 F 85 13 127/73 96 03/13/17 12:30 03/13/17 12:30 03/13/17 12:30 03/13/17 12:30 03/13/17 12:30 General appearance: Present: cooperative, A&O X 3, pleasant, no acute distress, answers questions appropriately - Head Head exam: Present: atraumatic, normocephalic - Eye Eye exam: Present: PERRL, conjuntiva pink, sclera anicteric Pupils: Present: PERRL - Neck Neck exam general surgery: Present: supple, trachea midline. Absent: lymphadenopathy - Respiratory Respiratory exam: Present: CTAB. Absent: accessory muscle use, rales, rhonchi, wheezes - Cardiovascular Cardiovascular exam: Present: RRR, +S1, +S2. Absent: diastolic murmur, gallop, rubs, systolic murmur - GI/Abdominal GI/Abdominal exam: Present: normal bowel sounds, soft, no peritoneal signs. Absent: distended, tenderness - Extremities Exam Extremities exam: Present: warm, radial pulses palpable and symetrical. Absent : calf tenderness, cyanotic, pedal edema Internal Medicine: Result - Labs CBC & Chem 7: 03/12/17 02:36 03/13/17 12:18 Labs: BMP 03/12/17 03/13/17 03/13/17 17:17 00:30 00:30 Sodium 126 L 124 L 123 L Potassium 3.6 3.6 Chloride 93 L 92 L Carbon Dioxide 23 22 BUN 19 20 Creatinine 1.04 1.01 Glucose 103 H 104 H Calcium 8.5 L 8.5 L 03/13/17 12:18 Sodium 125 L Potassium Chloride Carbon Dioxide BUN Creatinine Glucose Calcium Liver Function 03/13/17 Range/Units 00:30 Total Bilirubin 0.7 (0.2-1.2) mg/dL AST 14 (5-34) Units/L ALT 33 (0-55) Units/L Alkaline Phosphatase 142 H (38-126) Units/L Albumin 3.3 L D (3.5-5.0) g/dL - ABG Interpretation ABG results: PT/INR, D-dimer PT 11.8 Seconds (9.4-12.1) 03/12/17 02:36 - VTE Documentation of Mechanical Device: Intermittent pneumatic compression device Consult Discharge Plan - Plan Referrals: Farzad Sharp DO [Primary Care Provider] - (patient will need call his PCP himself. per [facility])
[2017-03-13] MEDS: Tolvaptan 15 MG TABLET PO SCH (14:04)
[2017-03-13] MEDS: amLODIPine 5 MG TABLET PO SCH (20:24)
--- NOTE | 2017-03-13 22:06 | Vascular/[facility] Progress Note ---
Date of Encounter: 03/13/17 Time of Encounter: 12:50 - Assessment and plan (1) Atherosclerotic peripheral vascular disease with rest pain Current Visit: Yes Status: Chronic The patient has a long history of peripheral vascular disease and has previously undergone a right above knee amputation. He currently ambulates with a prosthesis. He reports chronic intermittent left foot and ankle pain. His foot has no signs of acute limb threatening ischemia. He has chronic severe peripehral vascular disease. He will need an angiogram with possible intervention. This can be arranged as an outpatient if the patient goes home. Continue with his heparin today. (2) Hypertension Current Visit: Yes Status: Chronic He was counseled regarding atherosclerotic risk factor reduction. Qualifiers: Hypertension type: essential hypertension Qualified Code(s): I10 - Essential (primary) hypertension (3) Chronic anemia Current Visit: Yes Status: Chronic (4) Chronic hyponatremia Current Visit: Yes Status: Chronic (5) COPD (chronic obstructive pulmonary disease) with emphysema Current Visit: Yes Status: Chronic Qualifiers: Emphysema type: panlobular Qualified Code(s): J43.1 - Panlobular emphysema (6) Tobacco abuse Current Visit: Yes Status: Chronic He was counseled regarding smoking cessation. - Subjective Interval history: The patient reports that his left foot is feeling better today. He denies any acute issues overnight. He denies chest pain or shortness of breath. Vital Signs, Last 4 Hours Temp Pulse Resp BP Pulse Ox 03/13/17 19:43 98 F 77 18 121/76 99 - Physical Examination General: Present: Conversant Cardiac: Present: Reg Rate and Rhythm, Normal S1 and S2 Lungs: Present: Normal Breath Sounds, No Wheeze, Rales, Rhonchi Neuro: Present: Alert and responsive, Motor nerves grossly intact, Sensory nerves grossly intact Vascular: Present: Normal capillary refill, Pulse, absent (left popliteal and pedal pulses), Color/Temperature (left foot warm). Absent: Cyanosis, Edema Abdomen: Present: Soft, Non-tender Skin: Present: No rashes noted on visualized skin - VTE Documentation of Mechanical Device: Intermittent pneumatic compression device Results 03/15/17 04:50 03/17/17 03:48 Lab Results, Last 24 hours 03/13/17 03/13/17 03/13/17 00:30 00:30 00:30 APTT 43.2 H Sodium 124 L 123 L Potassium 3.6 3.6 Chloride 93 L 92 L Carbon Dioxide 23 22 BUN 19 20 Creatinine 1.04 1.01 Glucose 103 H 104 H Calcium 8.5 L 8.5 L Total Bilirubin 0.7 AST 14 ALT 33 Alkaline Phosphatase 142 H 03/13/17 03/13/17 03/13/17 07:19 12:18 13:58 APTT 67.5 H D 54.2 H Sodium 125 L Potassium Chloride Carbon Dioxide BUN Creatinine Glucose Calcium Total Bilirubin AST ALT Alkaline Phosphatase 03/13/17 17:47 APTT Sodium 132 L D Potassium Chloride Carbon Dioxide BUN Creatinine Glucose Calcium Total Bilirubin AST ALT Alkaline Phosphatase Consult Discharge Plan - Plan Referrals: Farzad Sharp DO [Primary Care Provider] - (patient will need call his PCP himself. per Dr. Sharp Office)
[2017-03-13] MEDS: Heparin 25,000 UNIT/500 ML D5W 25,000 UNIT/500 ML MLS IVC SCH (22:42)
[2017-03-14 01:44] LABS: BUN/Creatinine Ratio 17 (6-26); Blood Urea Nitrogen 14 mg/dL (8-26); Calcium 9.2 mg/dL (8.6-10.8); Carbon Dioxide 21 mEq/L (19-29); Chloride 99 mEq/L (98-109); Glucose 94 mg/dL (70-99); Osmolality,Calculated 270 (280-300); Potassium 3.9 mEq/L (3.5-4.5); Sodium 130 mEq/L (136-145); eGFR For African Americans > 60 (> 60); eGFR For Non-African Americans > 60 (> 60)
[2017-03-14] MEDS: traMADol 50 MG TABLET PO PRN ×2 (04:13→20:06)
[2017-03-14] MEDS: Folic Acid 1 MG TABLET PO SCH (07:50)
[2017-03-14] MEDS: Lisinopril 20 MG TABLET PO SCH (07:50)
[2017-03-14] MEDS: Tolvaptan 15 MG TABLET PO SCH (07:51)
[2017-03-14] MEDS: Thiamine (B-1) 100 MG TABLET PO SCH (07:51)
[2017-03-14] MEDS: Miconazole 2% cream 118 GM TUBE TP SCH ×2 (07:51→21:33)
[2017-03-14] MEDS: amLODIPine 5 MG TABLET PO SCH ×2 (07:51→21:30)
--- NOTE | 2017-03-14 09:42 | Nephrology Progress Note ---
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 Recommend fluid restriction, with discontinuation of heparin infusion as this is a source of free water and there are no plans for vascular intervention during this admission. Received aquaretic yesterday with improvement of sodium from 124 on admission to 130 today. Will hold medication today and trend sodium (recheck Na at noon). He will need close monitoring of his sodium level. Would like sodium to stay relatively stable over next 24 hours. Will obtain renal doppler for concern of kidney function in the setting of uncontrolled HTN and PVD. (2) Hypertension Current Visit: Yes Status: Chronic Uncontrolled hypertension. Continue titration of his antihypertensive medication. Improved this AM at 153/83 from admission with max BP of 212/118. Renin and Aldosterone levels pending. Consider the addition of spironolactone in a few days if sodium stable. Qualifiers: Hypertension type: essential hypertension Qualified Code(s): I10 - Essential (primary) hypertension (3) PVD (peripheral vascular disease) Current Visit: Yes Status: Acute Per primary and vascular teams. (4) Chronic alcohol abuse Current Visit: Yes Status: Chronic Per primary team. Subjective Principal diagnosis: Hyponatremia Interval history: Patient seen and examined at bedside; states he is doing well other than his left toes being red. When asked about fluid intake yesterday, patient states he had 5 sodas, 1 cup of coffee, and 1 large water jug. Objective - Vital Signs Vital signs: Vital Signs Temp Pulse Resp BP Pulse Ox 03/14/17 07:35 97.9 F 73 16 174/93 96 03/14/17 04:15 98.8 F 72 18 176/90 98 03/14/17 00:00 98.2 F 72 20 181/97 97 03/13/17 19:43 98 F 77 18 121/76 99 03/13/17 16:01 97.9 F 81 13 141/74 98 03/13/17 12:30 97.9 F 85 13 127/73 96 Intake and Output 03/13/17 03/14/17 03/14/17 23:59 07:59 15:59 Intake Total 582.7 / 582.7 1400 / 1400 Output Total 1900 / 1900 1850 / 1850 Balance -1317.3 / -1317.3 -450 / -450 Intake: IV Fluids 102.7 / 102.7 0 / 0 Heparin 25,000 UNIT/500 102.7 / 102.7 0 / 0 ML D5W 25,000 unit In 500 ml @ 12 UNIT/KG/HR 7.62 mls/hr IVC .Q24H CATHY Rx#: [id number] Oral 480 / 480 1400 / 1400 Output: Urine 1650 / 1650 1850 / 1850 Catheter 250 / 250 Other: Meal Dinner Percent of Meal Consumed 50% Weight 35.108 kg Patient Weight 03/14/17 23:59 Weight 35.108 kg - General Appearance General appearance: Present: well-developed, appears started age, cachectic EENT: Present: ATNC, mucous membranes moist, hearing intact, vision intact Neck: Present: supple Respiratory: Present: clear Cardiology: Present: no edema, regular rate, regular rhythm Gastrointestinal: Present: no tenderness Integumentary: Present: no rash, warm and dry Neurologic: Present: no focal deficit, alert and oriented x3 Additional Comments: Right AKA unilateral. LLE with discoloration of all toes (red/purple) with dorsalis pedis pulse 2+ Psychiatric: Present: mood/affect appropriate, cooperative - Lab 03/12/17 02:36 03/14/17 00:59 Most recent lab results Calcium 9.2 mg/dL (8.6-10.8) 03/14/17 00:59 Phosphorus 3.2 mg/dL (2.3-4.7) 03/13/17 00:30 Magnesium 2.3 mg/dL (1.6-2.6) 03/11/17 10:22 - VTE Documentation of Mechanical Device: Intermittent pneumatic compression device Consult Discharge Plan - Plan Referrals: Farzad Sharp DO [Primary Care Provider] - (patient will need call his PCP himself. per [facility])
--- NOTE | 2017-03-14 14:58 | Internal Med Progress Note ---
Date of Encounter: 03/14/17 Time of Encounter: 11:15 - Assessment and plan (1) Hyponatremia Current Visit: Yes Status: Acute Assessment and plan: Sodium levels are much improved today due to tolvaptan use. Nephrology following. Follow sodium levels. (2) Atherosclerotic peripheral vascular disease with rest pain Current Visit: Yes Status: Chronic Assessment and plan: Patient with long-term peripheral vascular disease with erythema involving the left foot toes. Vascular surgery following patient. Recommend outpatient angiogram. Recommend medical management in the meantime. Given that there is no urgent procedure planned, will stop heparin. Resume aspirin. (3) Hypertensive urgency Current Visit: Yes Status: Acute Assessment and plan: This has improved. (4) Chronic alcohol abuse Current Visit: Yes Status: Chronic Assessment and plan: No signs of alcohol withdrawal. (5) Critical ischemia of lower extremity Current Visit: No Status: Ruled-out (6) Hypertension Current Visit: Yes Status: Chronic Assessment and plan: Remains uncontrolled. We will add amlodipine. Qualifiers: Hypertension type: essential hypertension Qualified Code(s): I10 - Essential (primary) hypertension - Subjective Interval history: Patient is awake and alert. Feeling better. Denies any new complaints at this time. Having occasional numbness in his left foot toes. No chest pain. No shortness of breath. No palpitations. - Constitutional Vitals: Temp Pulse Resp BP Pulse Ox 97.8 F 78 18 158/75 98 03/14/17 12:12 03/14/17 12:12 03/14/17 12:12 03/14/17 12:12 03/14/17 12:12 General appearance: Present: cooperative, A&O X 3, pleasant, no acute distress, answers questions appropriately - Respiratory Respiratory exam: Present: CTAB. Absent: accessory muscle use, rales, rhonchi, wheezes - Cardiovascular Cardiovascular exam: Present: RRR, +S1, +S2. Absent: diastolic murmur, gallop, rubs, systolic murmur - GI/Abdominal GI/Abdominal exam: Present: normal bowel sounds, soft, no peritoneal signs. Absent: distended, tenderness - Extremities Exam Extremities exam: Present: warm, radial pulses palpable and symetrical. Absent : calf tenderness, cyanotic, pedal edema Additional comments: Poor dorsalis pedis pulse on the left lower extremity. There is redness of the left foot toes. Sensation is decreased in the left foot. status post right AKA - Neurological Exam Neurological exam: Present: CN II-XII intact, oriented X3, no focal deficits, strengths equal and symetr throughout. Absent: facial droop, speech deficit - Skin Skin exam: Present: dry, intact Internal Medicine: Result - Labs CBC & Chem 7: 03/12/17 02:36 03/14/17 13:23 Labs: BMP 03/13/17 03/14/17 03/14/17 17:47 00:59 00:59 Sodium 132 L D 132 L 130 L Potassium 3.9 Chloride 99 Carbon Dioxide 21 BUN 14 Creatinine 0.82 Glucose 94 Calcium 9.2 03/14/17 13:23 Sodium 134 L Potassium Chloride Carbon Dioxide BUN Creatinine Glucose Calcium - ABG Interpretation ABG results: PT/INR, D-dimer PT 11.8 Seconds (9.4-12.1) 03/12/17 02:36 - VTE Documentation of Mechanical Device: Intermittent pneumatic compression device Consult Discharge Plan - Plan Referrals: Farzad Sharp DO [Primary Care Provider] - (patient will need call his PCP himself. per Dr. Yu Office) - Attending Attestation This document has been at least partially created by [employer] recognition technology by Dr. Stewart. Errors in grammar, wording or other phrases may exist. If errors are found after the documentation is signed, they will be addressed individually in the addendum section of this document when appropriate.
--- NOTE | 2017-03-14 20:03 | Vascular/[facility] Progress Note ---
Date of Encounter: 03/14/17 Time of Encounter: 11:15 - Assessment and plan (1) Atherosclerotic peripheral vascular disease with rest pain Status: Chronic The patient has a long history of peripheral vascular disease and has previously undergone a right above knee amputation. He currently ambulates with a prosthesis. He continues to report left forefoot pain although it does appear to have improved since admission. He has been scheduled for an angiogram with possible intervention tomorrow. The risks, benefits and alternatives were discussed and all questions were answered. He expressed understanding and wishes to proceed. (2) Hypertension Status: Chronic He was counseled regarding atherosclerotic risk factor reduction. Qualifiers: Hypertension type: essential hypertension Qualified Code(s): I10 - Essential (primary) hypertension (3) Chronic anemia Status: Chronic (4) Chronic hyponatremia Status: Chronic (5) COPD (chronic obstructive pulmonary disease) with emphysema Status: Chronic Qualifiers: Emphysema type: panlobular Qualified Code(s): J43.1 - Panlobular emphysema (6) Tobacco abuse Status: Chronic He was counseled regarding smoking cessation. - Subjective Interval history: The patient denies any acute issues overnight. He remains comfortable and reports only mild intermittent foot pain. He denies chest pain or shortness of breath. Vital Signs, Last 4 Hours Temp Pulse Resp BP Pulse Ox 03/14/17 19:53 99.3 F 88 16 129/76 98 03/14/17 17:06 97.5 F L 92 16 144/84 97 - Physical Examination General: Present: Conversant Neck: Absent: JVD Cardiac: Present: Reg Rate and Rhythm, Normal S1 and S2 Lungs: Present: Normal Breath Sounds, No Wheeze, Rales, Rhonchi Neuro: Present: Alert and responsive, No focal deficits noted, Motor nerves grossly intact, Sensory nerves grossly intact Vascular: Present: Normal capillary refill. Absent: Cyanosis, Edema Abdomen: Present: Soft, Non-tender. Absent: Masses Skin: Present: No rashes noted on visualized skin - VTE Documentation of Mechanical Device: Intermittent pneumatic compression device Results 03/15/17 04:50 03/17/17 03:48 Lab Results, Last 24 hours 03/13/17 03/14/17 03/14/17 21:54 00:59 00:59 APTT 57.2 H Sodium 132 L 130 L Potassium 3.9 Chloride 99 Carbon Dioxide 21 BUN 14 Creatinine 0.82 Glucose 94 Calcium 9.2 03/14/17 03/14/17 05:48 13:23 APTT 71.3 H Sodium 134 L Potassium Chloride Carbon Dioxide BUN Creatinine Glucose Calcium Consult Discharge Plan - Plan Instructions: Lisinopril (By mouth), Amlodipine (By mouth), Carvedilol (By mouth), Clopidogrel (By mouth) Additional Instructions: F/up with on 03/21/17 as scheduled BMP in 5-7 days F/up with /Nephrology in 3-4 weeks Referrals: Dewey Ansari MD [Partnered Physician] - 04/13/17 9:00 am (Please follow up as schedule...) Farzad Sharp DO [Primary Care Provider] - (patient will need call his PCP himself. per Dr. Sharp Office) Prescriptions: Amlodipine [Norvasc] 5 mg PO BID #30 tablet Carvedilol [Coreg] 25 mg PO BIDWM #30 tablet Clopidogrel [Plavix] 75 mg PO DAILY #30 tablet Lisinopril [Zestril] 40 mg PO DAILY #30 tablet
[2017-03-14] MEDS ORDERED: *HR* Enoxaparin 40 MG/0.4 ML SYRINGE SQ ONE (21:00)
[2017-03-15] MEDS: traMADol 50 MG TABLET PO PRN ×2 (04:10→16:53)
[2017-03-15 05:04] LABS: Basophils # 0.1 K/mcL (0.0-0.2); Basophils % 1.3 %; Eosinophils # 0.1 K/mcL (0.0-0.6); Eosinophils % 1.9 %; Hematocrit 34.2 % (37.5-50.1); Hemoglobin 12.1 g/dL (12.9-16.9); Immature Granulocytes % 0.4 % (0-4); Lymphocytes % 20.9 %; Mean Corpuscular HGB Conc 35.4 g/dL (31.6-35.5); Mean Corpuscular Hemoglobin 31.7 pg (28.0-33.3); Mean Corpuscular Volume 89.5 fL (83.0-100.0); Mean Platelet Volume 9.9 fL (9.4-12.4); Monocytes # 0.5 K/mcL (0.0-1.3); Monocytes % 10.9 %; Neutrophils # 3.1 K/mcL (1.6-8.9); Platelet Count 241 K/mcL (140-400); Red Blood Count 3.82 M/mcL (4.19-5.50); Red Cell Distribution Width 13.7 % (11.5-14.5); Segmented Neutrophils % 64.6 %
[2017-03-15 05:29] LABS: BUN/Creatinine Ratio 14 (6-26); Blood Urea Nitrogen 11 mg/dL (8-26); Calcium 9.8 mg/dL (8.6-10.8); Carbon Dioxide 24 mEq/L (19-29); Chloride 98 mEq/L (98-109); Glucose 93 mg/dL (70-99); Osmolality,Calculated 271 (280-300); Potassium 4.2 mEq/L (3.5-4.5); Sodium 131 mEq/L (136-145); eGFR For African Americans > 60 (> 60); eGFR For Non-African Americans > 60 (> 60)
[2017-03-15] MEDS ORDERED: 0.9 % Sodium Chloride 1,000 ML ONE ×2 (07:05→07:35)
[2017-03-15] MEDS ORDERED: Heparin 1,000 UNITS/500 mL NS 500 ML ONE (07:05)
[2017-03-15] MEDS ORDERED: *HR* Heparin 10,000 UNIT/10 ML VIAL ONE (07:05)
[2017-03-15] MEDS ORDERED: *HR* Midazolam HCl 2 MG/2 ML VIAL ONE (07:35)
--- NOTE | 2017-03-15 07:44 | Pre-Sedation Evaluation ---
Pre-sedation evaluation - Pre-sedation checklist Date of procedure: 03/15/17 Procedure: angio Recent Vitals: Last Vital Signs Temp 98.2 F 03/15/17 07:25 Pulse 78 03/15/17 07:25 Resp 16 03/15/17 07:25 BP 122/76 03/15/17 07:25 Pulse Ox 97 03/15/17 07:25 H&P (including ROS) documented in medical record: Yes Previous reaction to sedatives/anesthetics: No Dietary Status: NPO after Midnight Dentition: No loose teeth or bridges, dentures removed ASA Classification *see protocol: CLASS III-Severe systemic disease Plan of Care: Pt appropriate candidate for procedure/moderate/conscious sedation , Risks/benefits of procedure/sedation discussed w/ patient/family
[2017-03-15] MEDS ORDERED: *HR* Labetalol 20 MG/4 ML SYRINGE IVP ONE (08:18)
--- NOTE | 2017-03-15 08:19 | Procedure Note ---
Date of procedure: 03/15/17 Pre-op diagnosis: Peripheral vascular disease Post-op diagnosis: same Procedure: Angiogram via left common femoral artery with 4 turkish sheath. Direct pressure for hemostasis. Anesthesia: local, IV sedation (moderate conscious sedation) Surgeon: Nik Trujillo Estimated blood loss (cc): 1 Pathology: none sent Condition: stable (no complications) Disposition: floor
--- NOTE | 2017-03-15 08:29 | Vascular/[facility] Progress Note ---
Date of Encounter: 03/15/17 Time of Encounter: 08:25 - Assessment and plan (1) Atherosclerotic peripheral vascular disease with rest pain Status: Chronic The patient has a long history of peripheral vascular disease and has previously undergone a right above knee amputation. He currently ambulates with a prosthesis. He continues to report left forefoot pain although it does appear to have improved since admission. He underwent an angiogram and was found to have a left superficial femoral and popliteal artery occlusions. He has complex tibial disease as well. He will be started on Plavix. He will be scheduled for bypass. (2) Hypertension Status: Chronic He was counseled regarding atherosclerotic risk factor reduction. Qualifiers: Hypertension type: essential hypertension Qualified Code(s): I10 - Essential (primary) hypertension (3) Chronic anemia Status: Chronic (4) Chronic hyponatremia Status: Chronic (5) COPD (chronic obstructive pulmonary disease) with emphysema Status: Chronic Qualifiers: Emphysema type: panlobular Qualified Code(s): J43.1 - Panlobular emphysema (6) Tobacco abuse Status: Chronic He was counseled regarding smoking cessation. - Subjective Interval history: The patient is alert and comfortable. He denies any discomfotrt. He has undergone an angiogram. He denies chest pain or shortness of breath. Vital Signs, Last 4 Hours Temp Pulse Resp BP Pulse Ox 03/15/17 07:25 98.2 F 78 16 122/76 97 03/15/17 04:56 139/84 03/15/17 04:34 98.3 F 66 16 175/108 97 - Physical Examination General: Present: Conversant HEENT: Present: Atraumatic Cardiac: Present: Reg Rate and Rhythm Lungs: Present: Normal Breath Sounds Neuro: Present: Alert and responsive, No focal deficits noted Vascular: Present: Normal capillary refill. Absent: Cyanosis, Edema Abdomen: Present: Soft. Absent: Masses - VTE Documentation of Mechanical Device: Intermittent pneumatic compression device Results 03/15/17 04:50 03/17/17 03:48 Lab Results, Last 24 hours 03/14/17 03/15/17 03/15/17 13:23 04:50 04:50 WBC 4.8 Hgb 12.1 L Hct 34.2 L Plt Count 241 Sodium 134 L 131 L Potassium 4.2 Chloride 98 Carbon Dioxide 24 BUN 11 Creatinine 0.81 Glucose 93 Calcium 9.8 - Imaging / Other Tests Angiogram: image reviewed Consult Discharge Plan - Plan Instructions: Lisinopril (By mouth), Amlodipine (By mouth), Carvedilol (By mouth), Clopidogrel (By mouth) Additional Instructions: F/up with on 03/21/17 as scheduled BMP in 5-7 days F/up with /Nephrology in 3-4 weeks Referrals: Dewey Ansari MD [Partnered Physician] - 04/13/17 9:00 am (Please follow up as schedule...) Farzad Sharp DO [Primary Care Provider] - (patient will need call his PCP himself. per Dr. Sharp Office) Prescriptions: Amlodipine [Norvasc] 5 mg PO BID #30 tablet Carvedilol [Coreg] 25 mg PO BIDWM #30 tablet Clopidogrel [Plavix] 75 mg PO DAILY #30 tablet Lisinopril [Zestril] 40 mg PO DAILY #30 tablet
--- NOTE | 2017-03-15 08:51 | Invasive Diagnostic Lab Proc ---
Name: Shay Ramirez Date of Study: 03/15/2017 Date: 1965 Ht: 160.0 in Medical Record#: [id number] Age: 51 Wt: 35 lb Gender: Male BSA: 1.29 Order #: [id number] BMI: 13.67 Physicians Performing MD: Nik Trujillo MD Referring MD: Referring MD: Staff Name Position Time In Soo Jameson RN Monitor Izzy Mclain RT (R) Scrub Melisa Angeles RN Architect Intern Lakisha Schaeffer RN Architect Intern Indications Claudication Procedures Performed AORTOGRAPHY, ABDOMINAL S\\T\\I AORTOGRAPHY W/RUNOFF BILAT S\\T\\I Pre-Procedure Checklist Informed consent is complete signed and on chart. H\\T\\P is on chart. ID band is on and ID verified with patient. Patient NPO for procedure The procedure was described for the patient and questions were answered. Blood Pressure: 176/95 ECG is on chart. Rhythm: NSR Plan of Care Patient will tolerate the procedure without complications. Adequate level of comfort will be maintained. Hemodynamics will remain stable Patient will recover from procedure without complications. Respiratory function will be maintained. Cardiac rhythm will remain stable. Patient temperature will be maintained. Patient and/or family have verbalized understanding of the procedure. Patient Education Chief Complaint/Reason for Test: Peripheral angiogram Developmental Category: Adult (18-64 years) Learning Barriers: None Education Needs: Procedure Education Method: Verbal Information Taught: Peripheral angiogram Educational Evaluation: Able to repeat information Intravenous Access Time IV Size Location DC'd Fluid/Drip Rate Units RN 07:29 20g 1 /" Patent On Arrival Lt Antecubital 0.9NaCl 25 ml/hr Lakisha Schaeffer RN Allergies No Known Allergies Vital Signs Time BP Systolic BP Diastolic HR O2 Sats ASA 07:45 AM 176 95 84 98 07:50 AM 07:47 AM 176 95 84 98 07:52 AM 186 94 90 98 07:57 AM 183 100 70 98 08:02 AM 193 104 87 99 08:07 AM 191 92 77 99 08:12 AM 180 106 78 99 08:17 AM 175 100 93 99 08:22 AM 190 99 83 98 08:25 AM 155 79 74 98 08:27 AM 157 90 79 99 08:32 AM 174 89 71 98 08:37 AM 178 92 72 99 08:42 AM 158 80 67 98 Procedure Medications Time Medication Dose Units Method Route 07:49 AM Oxygen 2 L/min nasal cannula 07:49 AM Versed 1 mg Intravenous 07:58 AM Lidocaine 2% 4 ml Subcutaneous 08:00 AM Lidocaine 2% 5 ml Subcutaneous 08:18 AM Labetolol 10 mg Intravenous ASA Classification: CLASS II- Mild systemic disease (i.e. well-controlled diabetes, hypertension, asthma, cigarette smoking) Yousuf Score Preprocedure Postprocedure Activity 2- Moves 4 extremities sustained head lift Activity 2- Moves 4 extremities sustained head lift Circulation 2- SBP +/= 20 points of pre-anesthetic level Circulation 2- SBP +/= 20 points of pre-anesthetic level Consciousness 2- Awake and alert oriented x 3 Consciousness 2- Awake and alert oriented x 3 O2 Saturation 2- Able to maintain O2 satruation of 92% on room air O2 Saturation 2- Able to maintain O2 satruation of 92% on room air Respiratory 2- Able to deep breathe and cough well Respiratory 2- Able to deep breathe and cough well Total Score 10 Total Score 10 Contrast: Isovue 250- 150ml Contrast Amount: 39 ml Fluoro Dose: 18 mGy Procedure Log Time Note Entered By 07:49 AM 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 Bilateral groin prepped with Chloraprep by Lakisha Schaeffer RN, safety strap applied then patient was draped. Skin intact. [email or web address] 07:49 AM Sho completed [email or web address] 07:49 AM Sign in performed according to hospital policy. [email or web address] 07:49 AM Procedure start 07:49 [email or web address] 07:49 AM 07:49 Oxygen at 2 L/min per nasal cannula by Melisa Angeles RN ejohnson 07:49 AM 07:49 Versed 1 mg Intravenous Given by Melisa Angeles RN 07:49 AM Time: 07:49 Is patient comfortable and pain free?: Yes [email or web address] 07:50 AM Time: 07:50LOC: 4 = Oriented but drowsy [email or web address] 07:56 AM Time out perfomed [email or web address] 07:57 AM Ultrasound, Sonosite, utilized to obtain vascular access [email or web address] 07:57 AM Patient charges- Angio tray pack, Pulse Oximetry and ACIST tubing and transducer [email or web address] 07:58 AM Micro-Introducer kit utilized for sheath placement [email or web address] 07:58 AM 07:58 4 ml Lidocaine 2% to right groin Subcutaneous Given By Nik Trujillo MD [email or web address] 08:01 AM 08:00 5 ml Lidocaine 2% to left groin Subcutaneous Given By Nik Trujillo MD [email or web address] 08:01 AM Access obtained in the left femoral artery by percutaneous puncture. 4 Fr. 10 cm Terumo [place] sheath placed in left femoral artery [email or web address] 08:04 AM 0.035 180cm Bentson wire utilized to assist with catheter placement [email or web address] 08:04 AM 4Fr Omniflush catheter inserted over the wire [email or web address] 08:04 AM Abdominal aorta angiography performed in AP contrast injected 10/20mls. [email or web address] 08:07 AM Catheter repositioned for runoff. [email or web address] 08:08 AM Setting up for stepping [email or web address] 08:08 AM Abdominal angiogram with runoff completed: 8 ml/sec for a total of 40 mls [email or web address] 08:13 AM physician reviewing films. [email or web address] 08:14 AM Catheter removed [email or web address] 08:14 AM Wire removed [email or web address] 08:16 AM Procedure completed at 08:16 [email or web address] 08:16 AM Sign Out completed: Radiation Dose 17.98 mGy Fluoro Time: 1.3 minutes. Isovue 250- 150ml contrast 39 ml given by Nik Trujillo MD. Complications: None. Confirmed administered medications:Yes [email or web address] 08:17 AM Isovue 250- 150ml,1 bottle(s) used. [email or web address] 08:17 AM Post Blood Pressure: 175/100 [email or web address] 08:18 AM Time: 08:18 Labetolol 10 mg Intravenous Given by Melisa Angeles RN [email or web address] 08:19 AM Post EKG: NSR [email or web address] 08:19 AM Information taught: Peripheral angiogram [email or web address] 08:19 AM Education needs: Procedure, Plan of Care, and Disease Process [email or web address] 08:19 AM Learning barriers: None [email or web address] 08:19 AM Education methods: Verbal [email or web address] 08:19 AM Education evaluation: Able to repeat information [email or web address] 08:19 AM Patient pain level 0/10 [email or web address] 08:19 AM Delay to floor: No [email or web address] 08:19 AM Family placed in not available. [email or web address] 08:19 AM Complications: None [email or web address] 08:19 AM Isovue 250- 150ml contrast 39 ml given by Nik Trujillo MD [email or web address] 08:20 AM Radiation Dose 17.98 mGy [email or web address] 08:26 AM Post Blood Pressure: 155/79 [email or web address] 08:26 AM Arterial sheath pulled using manual compression and V+Pad for 15 minutes by Soo Jameson RN [email or web address] 08:20 AM Lakisha Schaeffer RN Position: Architect Intern Time in: 08:26 [email or web address] 08:31 AM Report given to Hamida HU. Pt taken to , Room # 51 08:31 [email or web address] 08:43 AM Site status No bleeding/hematoma - Lt Groin as reported by Soo Jameson RN at 08:43 [email or web address] 08:43 AM Opsite applied [email or web address] 08:43 AM Patient out of room 08:43 [email or web address] 07:57 AM HR=70 bpm, XDUV=740/100 mmhg, SpO2=98.0 %, Resp=18 B/min, Comment=NSR 08:02 AM HR=87 bpm, LGMK=620/104 mmhg, SpO2=99.0 %, Resp=19 B/min, Comment=NSR 08:05 AM Recorded Pressure: Ao, HR=80, Condition=Condition 1 (Aorta) Ao 208/82/138 08:07 AM HR=77 bpm, HGSN=806/92 mmhg, SpO2=99.0 %, Resp=13 B/min, Comment=NSR 08:12 AM HR=78 bpm, JUEM=065/106 mmhg, SpO2=99.0 %, Resp=15 B/min, Comment=NSR 08:17 AM HR=93 bpm, BKFY=566/100 mmhg, SpO2=99.0 %, Resp=21 B/min, Comment=NSR 08:20 AM Recorded Pressure: Ao, HR=90, Condition=Condition 1 (Aorta) Ao -28/-28/-28 08:20 AM Recorded ECG: HR=90 Condition=Condition 1 08:22 AM HR=83 bpm, ADDI=002/99 mmhg, SpO2=98.0 %, Resp=16 B/min, Comment=NSR 08:25 AM NIBP STAT measurement started. 07:45 AM PVIStat 07:45 AM Case Start 07:46 AM Vitals capture started with the following parameters, Patient=Adult, Interval=5 min, Initial Yoskbnaj=633 mmHg, Deflation Rate=5 mmHg, Cuff placed on Left Leg 07:47 AM HR=84 bpm, MIPH=506/95 mmhg, SpO2=98.0 %, Resp=22 B/min, Comment=NSR 07:48 AM Recorded ECG: HR=83 Condition=Condition 1 07:48 AM Recorded ECG: HR=82 Condition=Condition 1 07:52 AM HR=90 bpm, QVKD=548/94 mmhg, SpO2=98.0 %, Resp=17 B/min, Comment=NSR 08:25 AM HR=74 bpm, OYFE=328/79 mmhg, SpO2=98.0 %, Resp=17 B/min, Comment=NSR 08:27 AM HR=79 bpm, PQCG=888/90 mmhg, SpO2=99.0 %, Resp=23 B/min, Comment=NSR 08:32 AM HR=71 bpm, CRKS=079/89 mmhg, SpO2=98.0 %, Resp=16 B/min, Comment=NSR 08:33 AM Recorded ECG: HR=70 Condition=Condition 1 08:37 AM HR=72 bpm, IGFY=223/92 mmhg, SpO2=99.0 %, Resp=20 B/min, Comment=NSR 08:42 AM HR=67 bpm, LWYX=377/80 mmhg, SpO2=98 %, Resp=16 B/min Hemodynamic Results Site Systolic Diastolic Mean Location Timing Ao 208 82 138 Ao Post Procedure Information Blood Pressure: 155/79 mmHg Rhythm: NSR Post procedure instructions given Site Checks Time Location Status Staff Sheath In? Note 8:43:00 AM Lt Groin No bleeding/hematoma Soo Jameson RN Pulses Time Site Pre Procedure Post Procedure Note 03/15/2017 7:37:00 AM Right AKA 03/15/2017 7:37:00 AM Left DP \\T\\ PT None None Updated by Staci Haque, RT(R) on 03/15/2017 8:43:52 AM electronically signed on 03/15/2017 8:45:17 AM with status of Final
[2017-03-15] MEDS: amLODIPine 5 MG TABLET PO SCH ×2 (09:16→21:41)
[2017-03-15] MEDS: Aspirin Enteric Coated 81 MG Tablet PO SCH (09:16)
[2017-03-15] MEDS: Lisinopril 20 MG TABLET PO SCH (09:16)
[2017-03-15] MEDS: Folic Acid 1 MG TABLET PO SCH (09:16)
[2017-03-15] MEDS: Thiamine (B-1) 100 MG TABLET PO SCH (09:16)
[2017-03-15] MEDS: Miconazole 2% cream 118 GM TUBE TP SCH (09:17)
--- NOTE | 2017-03-15 10:50 | Nephrology Progress Note ---
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 Recommend fluid restriction. Received aquaretic once on 03/13/17 with improvement of sodium from 124 to 130. Stable today with Sodium at 131. He will need close monitoring of his sodium level. Ordered renal doppler for concern of kidney function in the setting of uncontrolled HTN and PVD. (2) Hypertension Current Visit: Yes Status: Chronic Uncontrolled hypertension. Continue titration of his antihypertensive medication. Improved at 159/93 from admission with max BP of 212/118. Renin and Aldosterone levels pending. Consider the addition of spironolactone in a few days if sodium stable. Qualifiers: Hypertension type: essential hypertension Qualified Code(s): I10 - Essential (primary) hypertension (3) PVD (peripheral vascular disease) Current Visit: Yes Status: Acute Per primary and vascular teams. Angiogram done yesterday, confirmed PVD, vascular planning for outpatient intervention. (4) Chronic alcohol abuse Current Visit: Yes Status: Chronic Per primary team. Subjective Principal diagnosis: Hyponatremia Interval history: Patient seen and examined at bedside. Notes mild improvement of LLE discoloration today. No other complaints. Objective - Vital Signs Vital signs: Vital Signs Temp Pulse Resp BP Pulse Ox 03/15/17 10:05 97.6 F 79 18 159/93 98 03/15/17 09:45 70 18 173/95 98 03/15/17 09:34 97.4 F L 64 16 170/98 99 03/15/17 09:15 97.4 F L 78 18 178/101 99 03/15/17 09:00 97.4 F L 71 18 159/80 99 03/15/17 07:25 98.2 F 78 16 122/76 97 03/15/17 04:56 139/84 03/15/17 04:34 98.3 F 66 16 175/108 97 03/14/17 23:18 98.5 F 71 16 155/79 97 03/14/17 19:53 99.3 F 88 16 129/76 98 03/14/17 17:06 97.5 F L 92 16 144/84 97 03/14/17 12:12 97.8 F 78 18 158/75 98 Intake and Output 03/14/17 03/15/17 03/15/17 23:59 07:59 15:59 Other: Weight 35.3 kg Patient Weight 03/15/17 23:59 Weight 35.3 kg - General Appearance General appearance: Present: well-developed, appears started age, cachectic EENT: Present: ATNC, mucous membranes moist, hearing intact, vision intact Neck: Present: supple Respiratory: Present: clear Cardiology: Present: no edema, regular rate, regular rhythm Integumentary: Present: no rash, warm and dry Neurologic: Present: no focal deficit, alert and oriented x3 Additional Comments: Right AKA unilateral. LLE with discoloration of all toes (red, not as purple compared to yesterday). Psychiatric: Present: mood/affect appropriate, cooperative - Lab 03/15/17 04:50 03/15/17 04:50 Most recent lab results Calcium 9.8 mg/dL (8.6-10.8) 03/15/17 04:50 Phosphorus 3.2 mg/dL (2.3-4.7) 03/13/17 00:30 Magnesium 2.3 mg/dL (1.6-2.6) 03/11/17 10:22 - VTE Documentation of Mechanical Device: Intermittent pneumatic compression device Consult Discharge Plan - Plan Referrals: Farzad Sharp DO [Primary Care Provider] - (patient will need call his PCP himself. per Dr. Sharp Office)
--- NOTE | 2017-03-15 15:14 | Internal Med Progress Note ---
Date of Encounter: 03/15/17 Time of Encounter: 10:00 - Assessment and plan (1) Hyponatremia Current Visit: Yes Status: Acute Assessment and plan: Acute on chronic hyponatremia, possibly due to SIADH; Nephrology on board; serum sodium stable around low 130s at this time; off Tolvaptan; continue salt tablets and monitor closely; fluid restriction; (2) Atherosclerotic peripheral vascular disease with rest pain Current Visit: Yes Status: Chronic Assessment and plan: s/p right AKA. Vascular surgery on board for ischemic disease in left leg; underwent angiogram that revealed significant occlusive disease in left popliteal and superficial femoral with complex disease in tibial arteries; plan for possible bypass surgery; continue ASA and Plavix; (3) Hypertension Current Visit: Yes Status: Chronic Assessment and plan: came with hypertensive urgency; BP better controlled now; continue current meds - Lisinopril, Norvasc, Coreg and use PRN IV meds for appropriate control; low sodium diet; Nephrology recommends renal artery Doppler ultrasound to r/o renovascular HTN; will f/up; Qualifiers: Hypertension type: essential hypertension Qualified Code(s): I10 - Essential (primary) hypertension (4) Chronic alcohol abuse Current Visit: Yes Status: Chronic Assessment and plan: no signs or symptoms of alcohol withdrawal; (5) S/P AKA (above knee amputation) unilateral Current Visit: Yes Status: Chronic Qualifiers: Laterality: right Qualified Code(s): Z89.611 - Acquired absence of right leg above knee - Subjective Interval history: Feels better; improved pain in left foot; underwent angiogram today, awaiting bypass surgery; - Constitutional Vitals: Temp Pulse Resp BP Pulse Ox 97.6 F 79 18 149/86 98 03/15/17 10:05 03/15/17 10:05 03/15/17 10:05 03/15/17 11:51 03/15/17 10:05 General appearance: Present: cooperative, A&O X 3, answers questions appropriately - Respiratory Respiratory exam: Present: CTAB. Absent: accessory muscle use, rales, rhonchi, wheezes - Cardiovascular Cardiovascular exam: Present: RRR, +S1, +S2. Absent: diastolic murmur, gallop, rubs, systolic murmur - GI/Abdominal GI/Abdominal exam: Present: normal bowel sounds, soft, no peritoneal signs. Absent: distended, tenderness - Extremities Exam Extremities exam: Present: warm, radial pulses palpable and symetrical. Absent : calf tenderness, cyanotic, pedal edema Additional comments: s/p right AKA; left foot with erythematous nontender toes - Neurological Exam Neurological exam: Present: CN II-XII intact, oriented X3, no focal deficits. Absent: pronater drift, facial droop, speech deficit Internal Medicine: Result - Labs CBC & Chem 7: 03/15/17 04:50 03/15/17 04:50 Labs: Short CBC 03/15/17 Range/Units 04:50 WBC 4.8 (4.3-11.1) K/mcL Hgb 12.1 L (12.9-16.9) g/dL Hct 34.2 L (37.5-50.1) % Plt Count 241 (140-400) K/mcL Neutrophils # 3.1 (1.6-8.9) K/mcL BMP 03/15/17 04:50 Sodium 131 L Potassium 4.2 Chloride 98 Carbon Dioxide 24 BUN 11 Creatinine 0.81 Glucose 93 Calcium 9.8 - ABG Interpretation ABG results: PT/INR, D-dimer PT 11.8 Seconds (9.4-12.1) 03/12/17 02:36 - VTE Documentation of Mechanical Device: Intermittent pneumatic compression device Consult Discharge Plan - Plan Referrals: Farzad Sharp DO [Primary Care Provider] - (patient will need call his PCP himself. per Dr. Sharp Office)
[2017-03-15] MEDS: *HR* Heparin 5,000 UNIT/ML VIAL SQ SCH (16:54)
[2017-03-16] MEDS: traMADol 50 MG TABLET PO PRN ×3 (02:52→14:54)
[2017-03-16] MEDS: Miconazole 2% cream 118 GM TUBE TP SCH ×3 (03:55→21:56)
[2017-03-16 04:37] LABS: BUN/Creatinine Ratio 13 (6-26); Blood Urea Nitrogen 10 mg/dL (8-26); Calcium 9.7 mg/dL (8.6-10.8); Carbon Dioxide 26 mEq/L (19-29); Chloride 92 mEq/L (98-109); Glucose 90 mg/dL (70-99); Magnesium 1.9 mg/dL (1.6-2.6); Osmolality,Calculated 261 (280-300); Potassium 4.2 mEq/L (3.5-4.5); Sodium 126 mEq/L (136-145); eGFR For African Americans > 60 (> 60); eGFR For Non-African Americans > 60 (> 60)
[2017-03-16] MEDS: *HR* Heparin 5,000 UNIT/ML VIAL SQ SCH ×2 (07:02→17:55)
[2017-03-16] MEDS: amLODIPine 5 MG TABLET PO SCH ×2 (08:10→21:54)
[2017-03-16] MEDS: Folic Acid 1 MG TABLET PO SCH (08:10)
[2017-03-16] MEDS: Lisinopril 20 MG TABLET PO SCH (08:10)
[2017-03-16] MEDS: Aspirin Enteric Coated 81 MG Tablet PO SCH (08:10)
[2017-03-16] MEDS: Thiamine (B-1) 100 MG TABLET PO SCH (08:10)
[2017-03-16] MEDS ORDERED: Ondansetron 4 MG/2 ML VIAL IVP PRN (11:13)
--- NOTE | 2017-03-16 11:15 | Internal Med Progress Note ---
Date of Encounter: 03/16/17 Time of Encounter: 11:14 - Assessment and plan (1) Hyponatremia Current Visit: Yes Status: Acute Assessment and plan: Acute on chronic hyponatremia, possibly due to SIADH; Nephrology on board; serum sodium remained stable until yesterday, noted to be decreased at 126 today. We will enforce strict fluid restriction, continue salt tablets. Case discussed with nephrology, could be due to elevated ADH levels because of patient's nausea, trial of another dose of Tolvaptan today; continue to monitor closely. (2) Atherosclerotic peripheral vascular disease with rest pain Current Visit: Yes Status: Chronic Assessment and plan: s/p right AKA. Vascular surgery on board for ischemic disease in left leg; underwent angiogram that revealed significant occlusive disease in left popliteal and superficial femoral with complex disease in tibial arteries; plan for possible bypass surgery as an outpatient; continue ASA and Plavix; (3) Hypertension Current Visit: Yes Status: Chronic Assessment and plan: came with hypertensive urgency; BP better controlled now but continues to be above target; continue current meds- Lisinopril, Norvasc, Coreg , we will increase Coreg to 25 mg twice daily and use PRN IV meds for appropriate control ; low sodium diet; renal artery Doppler ultrasound to r/o renovascular HTN; completed, the follow-up report. Qualifiers: Hypertension type: essential hypertension Qualified Code(s): I10 - Essential (primary) hypertension (4) Chronic alcohol abuse Current Visit: Yes Status: Chronic (5) S/P AKA (above knee amputation) unilateral Current Visit: Yes Status: Chronic Qualifiers: Laterality: right Qualified Code(s): Z89.611 - Acquired absence of right leg above knee - Subjective Interval history: Reports nausea today and slightly uncomfortable due to that; unable to eat breakfast; improving left foot pain; - Constitutional Vitals: Temp Pulse Resp BP Pulse Ox 98.0 F 75 16 115/64 98 03/16/17 10:07 03/16/17 10:07 03/16/17 10:07 03/16/17 10:07 03/16/17 10:07 General appearance: Present: A&O X 3, answers questions appropriately - Respiratory Respiratory exam: Present: CTAB. Absent: accessory muscle use, rales, rhonchi, wheezes - Cardiovascular Cardiovascular exam: Present: RRR, +S1, +S2. Absent: diastolic murmur, gallop, rubs, systolic murmur - GI/Abdominal GI/Abdominal exam: Present: normal bowel sounds, soft, no peritoneal signs. Absent: distended, tenderness - Extremities Exam Extremities exam: Present: warm, radial pulses palpable and symetrical. Absent : calf tenderness, cyanotic, pedal edema Additional comments: s/p right AKA; left foot toes erythema stable; ROM intact; Internal Medicine: Result - Labs CBC & Chem 7: 03/15/17 04:50 03/16/17 04:09 Labs: BMP 03/16/17 04:09 Sodium 126 L Potassium 4.2 Chloride 92 L Carbon Dioxide 26 BUN 10 Creatinine 0.77 Glucose 90 Calcium 9.7 - ABG Interpretation ABG results: PT/INR, D-dimer PT 11.8 Seconds (9.4-12.1) 03/12/17 02:36 - VTE Documentation of Mechanical Device: Intermittent pneumatic compression device Consult Discharge Plan - Plan Referrals: Farzad Sharp DO [Primary Care Provider] - (patient will need call his PCP himself. per Dr. Sharp Office)
[2017-03-16] MEDS ORDERED: Tolvaptan 15 MG TABLET PO ONE (11:24)
--- NOTE | 2017-03-16 11:26 | Nephrology Progress Note ---
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 Recommend fluid restriction. Received aquaretic once on 03/13/17 with improvement of sodium from 124 to 130/ 131 which remained stable for the past few days. Sodium declined today to 126. He will need close monitoring of his sodium level. Ordered renal doppler for concern of kidney function in the setting of uncontrolled HTN and PVD. EMR notes order completed, but no results seen. Nausea today may be associated to hyponatremia vs GI irritation. Will give additional dose of tolvaptan today. If this improves sodium he can likely follow up in clinic as outpatient. (2) Hypertension Current Visit: Yes Status: Chronic Uncontrolled hypertension. Continue titration of his antihypertensive medication. Renin and Aldosterone levels pending. Consider the addition of spironolactone in a few days if sodium stable. Qualifiers: Hypertension type: essential hypertension Qualified Code(s): I10 - Essential (primary) hypertension (3) PVD (peripheral vascular disease) Current Visit: Yes Status: Acute Per primary and vascular teams. Angiogram done, confirmed PVD, vascular planning for outpatient intervention. (4) Chronic alcohol abuse Current Visit: Yes Status: Chronic Per primary team. Subjective Principal diagnosis: Hyponatremia Interval history: Patient seen and examined at bedside. Notes nausea after taking his AM medications. Denies emesis. In addition patient notes cramping in his right stump (a/p AKA). Notes pain in Left foot. Sodium declined to 126 today. Patient states he drank quite a bit of fluid/water yesterday; only 600ml recorded. Objective - Vital Signs Vital signs: Vital Signs Temp Pulse Resp BP Pulse Ox 03/16/17 10:07 98.0 F 75 16 115/64 98 03/16/17 06:55 97.4 F L 92 16 176/100 98 03/16/17 03:37 98.2 F 88 16 145/72 97 03/15/17 23:24 98.0 F 81 15 170/86 98 03/15/17 19:15 97.7 F 86 15 123/71 98 Intake and Output 03/15/17 03/16/17 03/16/17 23:59 07:59 15:59 Intake Total 600 / 600 0 / 0 Output Total 1100 / 1100 495 / 495 300 / 300 Balance -500 / -500 -495 / -495 -300 / -300 Intake: Oral 600 / 600 0 / 0 Output: Urine 1100 / 1100 300 / 300 Catheter 495 / 495 Other: Meal Breakfast Percent of Meal Consumed 50% 0% Stool Size Moderate Stool Consistency soft Stool Color Brown # Voids 2 # Bowel Movements 1 Weight 35.1 kg Patient Weight 03/16/17 23:59 Weight 35.1 kg - General Appearance General appearance: Present: well-developed, appears started age, cachectic EENT: Present: ATNC, mucous membranes moist, hearing intact, vision intact Neck: Present: supple Respiratory: Present: clear Cardiology: Present: no edema, regular rate, regular rhythm Integumentary: Present: no rash, warm and dry Neurologic: Present: no focal deficit, alert and oriented x3 Additional Comments: Right AKA unilateral. LLE with discoloration of all toes (red, not as purple compared to presentation) . Psychiatric: Present: mood/affect appropriate, cooperative - Lab 03/15/17 04:50 03/16/17 04:09 Most recent lab results Calcium 9.7 mg/dL (8.6-10.8) 03/16/17 04:09 Phosphorus 3.2 mg/dL (2.3-4.7) 03/13/17 00:30 Magnesium 1.9 mg/dL (1.6-2.6) 03/16/17 04:09 - VTE Documentation of Mechanical Device: Intermittent pneumatic compression device Consult Discharge Plan - Plan Referrals: Farzad Sharp DO [Primary Care Provider] - (patient will need call his PCP himself. per Dr. Sharp Office)
--- NOTE | 2017-03-16 16:56 | Vascular/Endovas Progress Note ---
Date of Encounter: 03/16/17 Time of Encounter: 09:30 - Assessment and plan (1) Atherosclerotic peripheral vascular disease with rest pain Status: Chronic The patient has a long history of peripheral vascular disease and has previously undergone a right above knee amputation. He currently ambulates with a prosthesis. He reports decreaed pain in his right forefoot. He underwent an angiogram and was found to have a left superficial femoral and popliteal artery occlusions. He has complex tibial disease as well. He will continue with daily plavix. he has been scheduled for surgery on 03/27/17. The risks, benefits and alternatives were discussed and all questions were answered. He will follow-up in clinic next week prior to surgery. (2) Hypertension Status: Chronic He was counseled regarding atherosclerotic risk factor reduction. Qualifiers: Hypertension type: essential hypertension Qualified Code(s): I10 - Essential (primary) hypertension (3) Chronic anemia Status: Chronic (4) Chronic hyponatremia Status: Chronic (5) COPD (chronic obstructive pulmonary disease) with emphysema Status: Chronic Qualifiers: Emphysema type: panlobular Qualified Code(s): J43.1 - Panlobular emphysema (6) Tobacco abuse Status: Chronic He was counseled regarding smoking cessation. - Subjective Interval history: The patient reports that he is feeling well today. He is alert and comfortable. He denies significant foot pain today. He says he is ready for discharge. He denies chest pain or shortness of breath. Vital Signs, Last 4 Hours Temp Pulse Resp BP Pulse Ox 03/16/17 15:18 97.7 F 77 16 155/77 98 - Physical Examination General: Present: Conversant, No Apparent Distress HEENT: Present: Normocephaly Neck: Absent: JVD Cardiac: Present: Reg Rate and Rhythm Lungs: Present: Normal Breath Sounds Neuro: Present: Alert and responsive Vascular: Present: Normal capillary refill, Surgical incisions (no hematoma at access site in left femoral). Absent: Cyanosis, Edema Abdomen: Present: Soft, Non-tender. Absent: Masses Skin: Present: No rashes noted on visualized skin - VTE Documentation of Mechanical Device: Intermittent pneumatic compression device Results 03/15/17 04:50 03/17/17 03:48 Lab Results, Last 24 hours 03/16/17 04:09 Sodium 126 L Potassium 4.2 Chloride 92 L Carbon Dioxide 26 BUN 10 Creatinine 0.77 Glucose 90 Calcium 9.7 Magnesium 1.9 Consult Discharge Plan - Plan Instructions: Lisinopril (By mouth), Amlodipine (By mouth), Carvedilol (By mouth), Clopidogrel (By mouth) Additional Instructions: F/up with on 03/21/17 as scheduled BMP in 5-7 days F/up with /Nephrology in 3-4 weeks Referrals: Dewey Ansari MD [Partnered Physician] - 04/13/17 9:00 am (Please follow up as schedule...) Farzad Sharp DO [Primary Care Provider] - (patient will need call his PCP himself. per Dr. Sharp Office) Prescriptions: Amlodipine [Norvasc] 5 mg PO BID #30 tablet Carvedilol [Coreg] 25 mg PO BIDWM #30 tablet Clopidogrel [Plavix] 75 mg PO DAILY #30 tablet Lisinopril [Zestril] 40 mg PO DAILY #30 tablet
[2017-03-16] MEDS ORDERED: Ketorolac 30 MG/ML VIAL IVP SCH (18:45)
[2017-03-16] MEDS ORDERED: Ketorolac 30 MG/ML VIAL IVP PRN (18:58)
[2017-03-17 04:18] LABS: BUN/Creatinine Ratio 19 (6-26); Blood Urea Nitrogen 17 mg/dL (8-26); Calcium 9.8 mg/dL (8.6-10.8); Carbon Dioxide 23 mEq/L (19-29); Chloride 98 mEq/L (98-109); Glucose 92 mg/dL (70-99); Osmolality,Calculated 271 (280-300); Potassium 4.1 mEq/L (3.5-4.5); Sodium 130 mEq/L (136-145); eGFR For African Americans > 60 (> 60); eGFR For Non-African Americans > 60 (> 60)
[2017-03-17] MEDS: *HR* Heparin 5,000 UNIT/ML VIAL SQ SCH (07:25)
[2017-03-17] MEDS: Thiamine (B-1) 100 MG TABLET PO SCH (08:32)
[2017-03-17] MEDS: Aspirin Enteric Coated 81 MG Tablet PO SCH (08:32)
[2017-03-17] MEDS: Lisinopril 20 MG TABLET PO SCH (08:32)
[2017-03-17] MEDS: amLODIPine 5 MG TABLET PO SCH (08:32)
[2017-03-17] MEDS: Folic Acid 1 MG TABLET PO SCH (08:32)
[2017-03-17] MEDS: Miconazole 2% cream 118 GM TUBE TP SCH (08:34)
--- NOTE | 2017-03-17 09:20 | Nephrology Progress Note ---
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 Recommend fluid restriction. Received aquaretic once on 03/13/17 with improvement of sodium from 124 to 130/ 131 which remained stable for a few days. Sodium declined yesterday to 126, patient received additional dose of tolvaptan, sodium improved today at 130. Planning for discharge, patient to have repeat labs in 1 week and follow up in outpatient clinic in 4-6 weeks. (2) Hypertension Status: Chronic Uncontrolled hypertension. Continue titration of his antihypertensive medication. Consider the addition of spironolactone in a few days if sodium stable. Renin level at 23m/ml/hr- this appears elevated, will discuss with attending, Dr. Ansari. Aldosterone level 3.0 ng/dl. Renal artery US completed, but not yet read. Qualifiers: Hypertension type: essential hypertension Qualified Code(s): I10 - Essential (primary) hypertension (3) PVD (peripheral vascular disease) Status: Acute Per primary and vascular teams. Angiogram done, confirmed PVD, vascular planning for outpatient intervention. (4) Chronic alcohol abuse Status: Chronic Per primary team. Subjective Principal diagnosis: Hyponatremia Interval history: Patient seen and examined at bedside. Notes the nausea from yesterday has completely resolved. He is feeling much better today. Objective - Vital Signs Vital signs: Vital Signs Temp Pulse Resp BP Pulse Ox 03/17/17 07:49 97.8 F 71 14 148/75 98 03/17/17 03:40 98.2 F 81 15 130/89 96 03/16/17 23:37 97.8 F 67 16 159/81 97 03/16/17 20:33 98.3 F 68 15 106/63 97 03/16/17 15:18 97.7 F 77 16 155/77 98 03/16/17 10:07 98.0 F 75 16 115/64 98 Intake and Output 03/16/17 03/17/17 03/17/17 23:59 07:59 15:59 Intake Total 240 / 240 Output Total 300 / 300 250 / 250 Balance -60 / -60 -250 / -250 Intake: Oral 240 / 240 Output: Urine 300 / 300 250 / 250 Other: Meal Dinner Breakfast Percent of Meal Consumed 85% 100% Weight 31.116 kg Patient Weight 03/17/17 23:59 Weight 31.116 kg - General Appearance General appearance: Present: well-developed, appears started age EENT: Present: ATNC, mucous membranes moist, hearing intact, vision intact Neck: Present: supple Respiratory: Present: clear Cardiology: Present: edema (2+ RLE edema, 1+ LLE edema), regular rate, regular rhythm Gastrointestinal: Present: no tenderness, no guarding Integumentary: Present: no rash, warm and dry Neurologic: Present: no focal deficit, alert and oriented x3 Musculoskeletal: Present: no deformities, no erythema, no cyanosis Psychiatric: Present: mood/affect appropriate, cooperative - Lab 03/15/17 04:50 03/17/17 03:48 Most recent lab results Calcium 9.8 mg/dL (8.6-10.8) 03/17/17 03:48 Phosphorus 3.2 mg/dL (2.3-4.7) 03/13/17 00:30 Magnesium 1.9 mg/dL (1.6-2.6) 03/16/17 04:09 - VTE Documentation of Mechanical Device: Intermittent pneumatic compression device Consult Discharge Plan - Plan Instructions: Lisinopril (By mouth), Amlodipine (By mouth), Carvedilol (By mouth), Clopidogrel (By mouth) Additional Instructions: F/up with on 03/21/17 as scheduled BMP in 5-7 days F/up with /Nephrology in 3-4 weeks Referrals: Dewey Ansari MD [Partnered Physician] - 04/13/17 9:00 am (Please follow up as schedule...) Frazad Sharp DO [Primary Care Provider] - (patient will need call his PCP himself. per Dr. Sharp Office) Prescriptions: Amlodipine [Norvasc] 5 mg PO BID #30 tablet Carvedilol [Coreg] 25 mg PO BIDWM #30 tablet Clopidogrel [Plavix] 75 mg PO DAILY #30 tablet Lisinopril [Zestril] 40 mg PO DAILY #30 tablet
--- NOTE | 2017-03-17 09:46 | Discharge Summary ---
Date of Encounter: 03/17/17 Time of Encounter: 09:44 - Discharge Diagnosis (1) Hyponatremia Priority: Primary Status: Acute (2) Atherosclerotic peripheral vascular disease with rest pain Priority: Primary Status: Chronic (3) Hypertension Priority: Secondary Status: Chronic Qualifiers: Hypertension type: essential hypertension Qualified Code(s): I10 - Essential (primary) hypertension (4) Chronic alcohol abuse Priority: Secondary Status: Chronic (5) S/P AKA (above knee amputation) unilateral Priority: Secondary Status: Chronic Qualifiers: Laterality: right Qualified Code(s): Z89.611 - Acquired absence of right leg above knee - Discharge Medications Prescriptions: Amlodipine [Norvasc] 5 mg PO BID #30 tablet Carvedilol [Coreg] 25 mg PO BIDWM #30 tablet Clopidogrel [Plavix] 75 mg PO DAILY #30 tablet Lisinopril [Zestril] 40 mg PO DAILY #30 tablet Home Medications: Aspirin Enteric Coated [Aspirin EC] 81 mg PO QAM 01/12/16 [History] OxyCODONE/APAP 5/325 [Percocet 5/325 MG] 1 - 2 tab PO Q4HR PRN #10 tablet [Rx] TraMADol [Ultram] 50 mg PO BID #7 tablet 02/09/16 [Rx] Acetaminophen [Tylenol] 1,000 mg PO Q6HR PRN 03/11/17 [History] Ibuprofen [Advil] 400 mg PO Q6H PRN 03/11/17 [History] Amlodipine [Norvasc] 5 mg PO BID #30 tablet 03/17/17 [Rx] Carvedilol [Coreg] 25 mg PO BIDWM #30 tablet 03/17/17 [Rx] Clopidogrel [Plavix] 75 mg PO DAILY #30 tablet 03/17/17 [Rx] Lisinopril [Zestril] 40 mg PO DAILY #30 tablet 03/17/17 [Rx] Allergies/Adverse Reactions: Allergies No Known Allergies Allergy (Verified 07/31/15 10:00) Date of admission: 03/15/17 14:31 Primary care physician: Farzad Atwoodopy Consults: 03/16/17 05:53 Consult to Pastoral Services [CONS] Routine Comment: Pt asking for services, prefers catholicism Discharging clinician: Mariaelena Chacon Anticipated date of discharge: 03/17/17 - Patient Status Disposition: Home, Self-Care Condition: Good Functional capacity at discharge: wheelchair bound Overall status at discharge: patient is progressing back to baseline - Discharge Instructions Instructions: Lisinopril (By mouth), Amlodipine (By mouth), Carvedilol (By mouth), Clopidogrel (By mouth) Follow Up With: Dewey Ansari MD [Partnered Physician] - 04/13/17 9:00 am (Please follow up as schedule...) Farzad Sharp DO [Primary Care Provider] - (patient will need call his PCP himself. per Dr. Sharp Office) Additional Instructions: F/up with on 03/21/17 as scheduled BMP in 5-7 days F/up with /Nephrology in 3-4 weeks Hospital course: Mr. Ramirez is a 51 year old male with the above medical problems who was referred by his primary care provider after routine labs showed significant hyponatremia. Patient likely had acute on chronic hyponatremia. Nephrology was consulted and patient was thought to have low sodium levels due to possible SIADH. He received a trial of Tolvaptan and his serum sodium gradually improved. He also had significant nausea yesterday which further dropped his sodium level possibly due to ADH release in response to nausea and he again responded to a dose of Tolvaptan. He has not had significant neurological or mental status changes secondary to changes in sodium level. Patient is status post right lower extremity above-knee amputation. He is noted to have significant peripheral vascular disease and left lower extremity with erythematous and painful toes. Vascular surgery has been consulted and patient underwent angiogram which showed left superficial femoral and popliteal arterial occlusions along with complex tibial disease. Patient is recommended to undergo femoropopliteal bypass surgery as an outpatient and he has been provided with follow-up with vascular surgery. His symptoms are better controlled now and he is medically stable for discharge with outpatient follow-up. - Time Spent with Patient Total time spent providing and/or coordinating discharge services: Greater than 30 minutes (50 min) - Constitutional Vitals: Temp Pulse Resp BP Pulse Ox 97.8 F 71 14 148/75 98 03/17/17 07:49 03/17/17 07:49 03/17/17 07:49 03/17/17 07:49 03/17/17 07:49 General appearance: Present: A&O X 3, answers questions appropriately - Respiratory Respiratory exam: Present: CTAB. Absent: accessory muscle use, rales, rhonchi, wheezes - Cardiovascular Cardiovascular exam: Present: RRR, +S1, +S2. Absent: diastolic murmur, gallop, rubs, systolic murmur - VTE Documentation of Mechanical Device: Intermittent pneumatic compression device
[2017-03-17 11:20] VITALS: BP 118/65
--- NOTE | 2017-03-17 16:44 | Arterial Study Report ---
Renal Duplex Patient Name:Shay Ramirez Order Number:[id number] Procedure Date:03/15/2017 Date:1965Age:51 yrs Gender:Male Rt.BP:178 / 101 mmHgHeart Rate: Location:[facility] Room #: 2A51 S3B Multi Sensor Operator:Mayra Rosales, YUNI, RVT Referring MD:Jordon Dai DO reservoir engineering consultant:Farzad Sharp DO Reading MD:Ricardo Olivo MD Primary Indications:Hypertension, Peripheral Artery Disease Risk Factors Yes/No Diabetes No Hypertension Yes Smoking Current Yes Anticoagulants Yes Hypercholesterolemia No Previous Vascular Surgery Yes Impressions: Findings: bilateral renal artery is hemodynamically well maintained. Recommendations: Test completed on 03/15/2017 at 10:31:25 am. Findings Renal Anatomy: The right kidney size measures 10.8 x 4.1 x 4.3 cm. The left kidney size measures 8.8 x 4 x 3.4 cm. Prior Study: No prior study available for comparison. Renal Duplex Right RAR:3.6 Left RAR:1.8 Side Vessel PSV EDV RI PI Accel Aorta 31.00 10.00 0.68 Left Renal Artery Hilum 15.00 5.00 0.67 Left Distal Renal Artery 32.00 11.00 0.66 Left Mid Renal Artery 55.00 27.00 0.51 Left Proximal Renal Artery 51.00 25.00 0.51 Right Renal Artery Hilum 50.00 18.00 0.64 Right Distal Renal Artery 37.00 13.00 0.65 Right Mid Renal Artery 42.00 13.00 0.69 Right Proximal Renal Artery 111.00 35.00 0.68 Updated by Ricardo Olivo MD on 03/17/2017 4:38:09 PM electronically signed on 03/17/2017 4:38:28 PM with status of Final
--- NOTE | 2017-03-23 07:32 | Invasive Diagnostic Lab ---
Name: Shay Ramirez Date of Study: 03/15/2017 Date: 1965 Ht: 160.0 in Medical Record#: [id number] Age: 51 Wt: 35 lb Gender: Male BSA: 1.29 Order #: [id number] Fluoro: 18 mGy BMI: 13.67 Procedure MD: Nik Trujillo MD Procedures Performed: AORTOGRAPHY, ABDOMINAL S\T\I ANGIOGRAM, EXT UNILAT S\T\I INTRO CATH, AORTA Indications: Peripheral Vascular disease with rest pain Impressions: Patent right renal artery. 80% Mild left renal artery stenosis. Occluded right common iliac, extrenal iliac and femoral arteries. 60% Left common iliac artery in-stent stenosis. Left common femoral and deep femoral artery stenosis. Left superficial femoral artery occlusion. Left popliteal artery is patent in the above knee segment and terminates in two geniculate branches. The below knee popltieal artery and tibioperonal trunk is occluded. The tibial vessels are occluded proximally. No complications. Recommendations: Daily Aspirin. Atherosclerotic risk factor reduction. The patient will be scheduled for revascularization. History/ Risk Factors: Hypertension Chronic Lung Disease Hx of Tobacco Use Peripheral Artery Disease Previous BARREL MARKER Technique: The patient was identified in the preoperative area and taken to the catheterization lab. The patient was prepped and draped in the normal sterile fashion. After the timeout procedure was performed, ultrasound was used to evaluate the right common femoral artery. No pulse was noted and no flow could be detected. Therefore, local anesthetic was infused over the left groin. Under ultrasound guidance, the left common femoral artery was cannulated with a large bore needle. A Talkitoson wire was advanced though the needle into the aorta under fluoroscopic view. The needle was exchanged for a 4 sinhala sheath and an omniflush catheter was advanced into the suprarenal aorta. The wire was removed and an abdominal aortagram was performed. The catheter was then withdrawn to the aortic bifurcation and a bilateral lower extremity angiogram was then performed. The catheter was removed over a wire. The sheath was removed and direct pressure was used to aid in hemostasis. Vessel Findings: * Abdominal Arteries The Left internal iliac is angiographically free of disease. The Left external iliac is angiographically free of disease. The Left internal iliac is angiographically free of disease. The Left external iliac is angiographically free of disease. The Right renal is angiographically free of disease. The Abd. aorta infrarenal is angiographically free of disease. There is a lesion present with 80% stenosis, in the Mid Left Renal. No intervention was performed on this Lesion. * Lower Extremity Arteries The Left dorsal pedal is angiographically free of disease. The Right superficial femoral is angiographically free of disease. The Left tibioperoneal trunk is angiographically free of disease. The Left plantar arch is angiographically free of disease. There is a lesion present with 100% stenosis, in the Distal Right Common Iliac. No intervention was performed on this Lesion. There is a lesion present with 100% stenosis, in the Right External Iliac. No intervention was performed on this Lesion. There is a lesion present with 100% stenosis, in the Right Femoral. No intervention was performed on this Lesion. There is a lesion present with 60% stenosis, in the Left Common Iliac. No intervention was performed on this Lesion. There is a lesion present in the Proximal Left Profunda. No intervention was performed on this Lesion. There is a lesion present with 80% stenosis, in the Distal Left Femoral. No intervention was performed on this Lesion. There is a lesion present with 100% stenosis, in the Left Superficial Femoral. The lesion is diffusely diseased. No intervention was performed on this Lesion. There is a lesion present with 100% stenosis, in the Distal Left Popliteal. No intervention was performed on this Lesion. There is a lesion present with 100% stenosis, in the Proximal Left Ant. Tibial. No intervention was performed on this Lesion. There is a lesion present with 100% stenosis, in the Proximal Left Peroneal. No intervention was performed on this Lesion. There is a lesion present with 100% stenosis, in the Proximal Left Post. Tibial. No intervention was performed on this Lesion. Lesions: Mid Left Renal Stenosis: 80% Distal Right Common Iliac Stenosis: 100% Right External Iliac Stenosis: 100% Right Femoral Stenosis: 100% Left Common Iliac Stenosis: 60% Left Superficial Femoral Stenosis: 100% Distal Left Popliteal Stenosis: 100% Proximal Left Post. Tibial Stenosis: 100% Proximal Left Ant. Tibial Stenosis: 100% Proximal Left Peroneal Stenosis: 100% Distal Left Femoral Stenosis: 80% Proximal Left Profunda Total Contrast: Isovue 250- 150ml 39mls Hemodynamic Data Site Location Systolic Timing Ao 208 Ao -28 Updated by Nik Trujillo MD on 03/23/2017 7:27:36 AM electronically signed on 03/23/2017 7:28:18 AM with status of Final
== END 2017-03-17 14:26 | disposition home or self-care (01) | DRG 643 ==
LOC: EMEROO 09:55 → 2ANU 09:55 → SUATTDRO 11:20 → 2ANU 11:45 → SUATTDRO 03-15 14:31
PROVIDERS: ADMIT Internal Medicine; ATTEND Internal Medicine

== ENCOUNTER 2017-03-24 09:26 | Inpatient (IN) ==
[2017-03-24] MEDS ORDERED: Vancomycin 500 MG in D5% in Water 250 ML IVPB ONE ×2 (09:42→23:00)
[2017-03-24] MEDS ORDERED: Albuterol 2.5 MG/3 ML NEBULIZER IH ONE (09:42)
[2017-03-24] MEDS ORDERED: CeFAZolin Pre 2,000 MG/100 ML 2,000 MG/100 ML BAG IVPB ONE (09:42)
[2017-03-24] MEDS ORDERED: Ringers Solution, Lactated 1,000 ML IVC SCH (09:45)
--- NOTE | 2017-03-24 09:50 | Anesthesia Evaluation PreOp ---
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 History: CVA (no residual) Other Medical History: GERD, Other (hyponatremia) Anesthesia History: No Prior Anesthetic Complications, Past Anesthesia (Right AKA) Alcohol Use: heavy (H/O heavy EtOH use, decreased consumption 2 years ago) Drug use: none Medications and Allergies Aspirin Enteric Coated [Aspirin EC] 81 mg PO QAM 01/12/16 [History] OxyCODONE/APAP 5/325 [Percocet 5/325 MG] 1 - 2 tab PO Q4HR PRN #10 tablet [Rx] traMADol [Ultram] 50 mg PO BID #7 tablet 02/09/16 [Rx] Acetaminophen [Tylenol] 1,000 mg PO Q6HR PRN 03/11/17 [History] Ibuprofen [Advil] 400 mg PO Q6H PRN 03/11/17 [History] Carvedilol [Coreg] 25 mg PO BIDWM #30 tablet 03/17/17 [Rx] Clopidogrel [Plavix] 75 mg PO DAILY #30 tablet 03/17/17 [Rx] Lisinopril [Zestril] 40 mg PO DAILY #30 tablet 03/17/17 [Rx] amLODIPine [Norvasc] 5 mg PO BID #30 tablet 03/17/17 [Rx] Allergies No Known Allergies Allergy (Verified 07/31/15 10:00) - Meds/Allergy Pre-op Review Medications Reviewed: Yes Allergies Reviewed: Yes Beta Blockers on Current Med List: Yes If Beta Blockers taken, Date/Time (Last Dose taken): 03/24/2017 at 0800 Anesthesia Results - Labs Laboratory Tests 03/12/17 03/14/17 03/15/17 02:36 05:48 04:50 WBC 4.8 Hgb 12.1 L Hct 34.2 L Plt Count 241 PT 11.8 INR 1.1 APTT 71.3 H Sodium Potassium BUN Creatinine 03/17/17 03:48 WBC Hgb Hct Plt Count PT INR APTT Sodium 130 L Potassium 4.1 BUN 17 Creatinine 0.89 - Imaging EKG: report reviewed (03/11/2017 SR, tall T waves) Additional studies: 01/14/2016 Echo LVEF 60% mild LV diastolic dysfunction no significant valvular dysfunction 02/28/2015 Stress Impression: Perfusion imaging was negative for ischemia or infarct. Pharmacologic ECG was negative for ischemia at the level of heart rate achieved. Patient had no chest pain with stress. Normal hemodynamic response. No arrhythmias noted with stress. Gated EF = 57%; abnormal gated septal motion. The LV is not dilated. There is no evidence of TID. Anesthesia Exam O2 Sat Height 1.6 m Height 1.6 m Height 1.6 m Weight 30.391 kg Weight 30.391 kg Weight 30.391 kg O2 Sat by Pulse Oximetry 99 Vital Signs Temp Pulse Resp BP Pulse Ox 97.7 F 84 18 176/96 99 03/24/17 09:49 03/24/17 09:49 03/24/17 09:49 03/24/17 09:49 03/24/17 09:49 Height: 5'3'' Weight: 67 lbs NPO (# of Hours): 8 Pain Scale: 3 Pain Scale Used: Numeric (1 - 10) - HEENT Pupil (Motor): EOMI Mallampati: III Teeth: Normal Oral Opening: Greater than 3 - SCRAP STRIPPER HAND LOC: Oriented SCRAP STRIPPER HAND Motor: Normal RUE, Normal LUE, Normal RLE (Right AKA), Normal LLE, Normal Face SCRAP STRIPPER HAND Sensory: Normal: RUE, LUE, RLE (Right AKA), Face, Deficit: LLE - Cardiac Rhythm: Regular Murmur: None - Pulmonary Breath Sounds: bilateral Clear Respiratory Effort: Symmetrical Anesthesia Assess/Plan ASA Score: 3 Modified Herson Scale for Level of Consciousness: Cooperative, oriented, and tranquil Anesthetic Plan: General Monitoring Plan: Standard Monitors Recovery Plan: PACU
[2017-03-24] MEDS ORDERED: *HR* Midazolam HCl 2 MG/2 ML VIAL ONE (09:53)
[2017-03-24] MEDS ORDERED: *HR* FentaNYL (PF) 100 MCG/2 ML VIAL ONE (09:54)
[2017-03-24] MEDS ORDERED: *HR* Propofol 200 MG/20 ML VIAL IVP ONE (09:57)
[2017-03-24] MEDS ORDERED: *HR* Rocuronium Bromide 50 MG/5 ML VIAL ONE (09:58)
[2017-03-24] MEDS ORDERED: *HR* Succinylcholine 200 MG/10 ML VIAL IVP ONE (09:58)
[2017-03-24] MEDS ORDERED: Dexamethasone 4 MG/ML VIAL ONE (09:59)
[2017-03-24] MEDS ORDERED: Ondansetron 4 MG/2 ML VIAL ONE (09:59)
[2017-03-24] MEDS ORDERED: *HR* Heparin 5,000 UNIT/ML VIAL ONE (10:02)
[2017-03-24] MEDS ORDERED: *HR* Remifentanil 1 MG VIAL IVP ONE ×2 (10:11)
[2017-03-24] MEDS ORDERED: Heparin 1,000 UNITS/500 mL NS 500 ML ONE ×2 (11:01→11:02)
[2017-03-24] MEDS ORDERED: Vancomycin 1,000 MG VIAL ONE (11:01)
--- NOTE | 2017-03-24 11:10 | History & Physical Report ---
Date of Encounter: 03/24/17 Time of Encounter: 11:00 24 Hour HP Update - Instructions Instructions: If the History and Physical is less than 30 days old and was completed prior to A.M. admission and or procedure and has NOT been updated on calendar day of procedure please complete this update prior to performing procedure. - Update Patient reports changes in Medical Condition: No Changes in examination, assessment, or condition: No Changes in Medication: No Preop tests/diagnostics Reviewed: Yes Surgery Remains Indicated: Yes Consent for Planned Operative Procedure(s) Verified: Yes - Pre-Operative Checklist Preoperative Checklist Indicated: Yes Prophylactic Antibiotic Ordered: Yes (VANCOMYCIN DUE TO MRSA RISK) Home Medications Include Beta Star: Yes Beta Star Taken Today (Day of Surgery): Yes Beta Star Taken Yesterday (Day Prior to Surgery): Yes Is VTE Prophylaxis Indicated?: Yes
[2017-03-24] MEDS ORDERED: *HR* Labetalol 100 MG/20 ML MDV IVP PRN (13:09)
[2017-03-24] MEDS ORDERED: Ondansetron 4 MG/2 ML VIAL IVP ONE (13:09)
[2017-03-24] MEDS ORDERED: *HR* HYDROmorphone (PF) 1 MG/ML SYRINGE IVP PRN (13:09)
[2017-03-24] MEDS ORDERED: Protamine Sulfate 50 MG/5 ML VIAL IVP ONE (15:22)
[2017-03-24 15:33] LABS: ABG Base Excess -1.6 mEq/L (-2.0 to 3.0); ABG HCO3 22.7 mEQ/L (21-27); ABG Oxygen Saturation 100 % (95-98); ABG PCO2 35 mmHg (35-45); ABG PH 7.42 pH Units (7.32-7.45); ABG PO2 260 mmHg (85-104); ABG TCO2 23.8 mEq/L (20-26)
[2017-03-24] MEDS ORDERED: *HR* HYDROmorphone 2 MG/ML SYRINGE ONE (15:35)
[2017-03-24 16:20] LABS: Hematocrit 17.7 % (37.5-50.1); Hemoglobin 6.3 g/dL (12.9-16.9)
--- NOTE | 2017-03-24 16:27 | Operative Note ---
Date of procedure: 03/24/17 Pre-op diagnosis: Peripheral vascular disease with rest pain and ulceration Post-op diagnosis: same Procedure: 1. Angiogram with Left common iliac artery angioplasty with 7 x 40mm balloon. 2. Left iliofemoral endarterectomy 3. Left deep femoral artery endarterctomy. 3. Left superficial femoral and popliteal artery endarterectomy. 4. Left common femoral to above knee popliteal artery bypass with 6mm PTFE graft. Complications: None Anesthesia: GETA Surgeon: Nik Trujillo Estimated blood loss (cc): 500 Specimen: Left lower extremity plaque Condition: stable Disposition: PACU Procedure in Detail: Indications: The patient is a 51 year old male with a history of severe peripheral vascular disease. He has previously required a left above knee amputation due to prolonged limb ischemia. The patient was found to have rest pain and ulcerations in the left lower extremity. Angiography revealed significant inflow and outflow disease. Revascularization was recommended to minimize his risk of limb loss. Procedure: The patient was identified in the preoperative area. The risks, benefits, and alternatives of the procedure were discussed. All questions were answered. The patient was taken to the operating room and placed in supine position on the operating room table. After the induction of general endotracheal anesthesia, he was cleaned and draped in normal sterile fashion. An oblique incision was made over the left groin sharply. Hemostasis was obtained with electrocautery. Through a process of blunt, sharp, and electrocautery dissection, the left common, deep and superficial femoral arteries and distal external iliac artery were dissected circumferentially and surrounded with vessel loops. The patient received 5000 units of heparin intravenously. Additional heparin was given throughout the case to maintain adequate anticoagulation. After waiting for the heparin to circulate, the femoral vessels were occluded and a longitudinal arteriotomy was made in the left common femoral artery. Significant, irregular and obstructive plaque was encountered. A this time, blood flow was noted to be weakly pulsatile. A wire was then passed proximally and a 6 welsh sheath was advanced over the wire. An angiogram was performed which recurrent stenosis in the left common iliac artery stent. Angioplasty was then performed. A completion angiogram revealed resolution of the left common iliac artery stenosis. The wire and sheath were removed and the external iliac artery was occluded. Using a dental freer, an extensive endarterectomy was performed on the distal external iliac and common femoral arteries. The specimen was sent to pathology. After the endarterectomy was performed, the external iliac artery was opened and significant improvement was noted in the blood flow. Strong pulsatile flow was noted. The artery was then occluded. Distally, the origin of the superficial femoral artery was noted to be chronically occluded. Retrograde flow from the deep femoral artery was noted to be minimal. Using a dental freer , an endarterectomy was performed on the left deep femoral artery. Upon completion of the endarterectomy, significant improvement in retrograde blood flow was noted. The vessel lumen was flushed with heparinized saline and then occluded. An incision was made on the left medial thigh sharply. Hemostasis was obtained with electrocautery. Through a process of blunt, sharp, and electrocautery dissection, the left above-knee popliteal artery was dissected proximally and distally and surrounded with vessel loops. The vessel was noted to be firm and calcific. The vessel was occluded proximally and distally. A longitudinal arteriotomy was then made in the popliteal artery. Nearly occlusive and heavily calcified plaque was encountered. Using a dental freer, an endarterectomy was performed until retrograde flow was encountered this required extension of the arteriotomy. The endpoint was inspected and no elevated flap was noted. An endarterectomy was then performed proximally and antegrade flow was noted. Specimens were then sent to pathology. Given the antegrade and retrograde flow, combined with the severe tibial disease , the decision was made to perform a bypass to the isolated popliteal segment. A graft was tunneled between the popliteal and femoral incisions. The graft was cut to fit the femoral arterial defect and sutured in place with a running 6 -0 prolene. Flow was restored in the femoral vessels and the graft was flushed , filled with heparinized saline and then occluded. Thrombin and gelfoam were used at the proximal anastamosis. The distal end of the graft was cut to fit the arteriotomy and sutured in place with a running 6-0 Prolene. Prior to completing the anastamosis, the popliteal vessels were flushed and reoccluded. Heparinized saline was infused into the lumen. The anastamosis was tied and then flow was restored. Polyphasic signals were noted distal to the distal anastomosis. The foot was pink with good capilary refill. A signal was not identified at the ankle. Wounds were irrigated with antibiotic-containing saline. Thrombin and gelfoam were used to aid in hemostasis. Platelet rich and platelet poor plasma were infused into the wounds. Meticulous hemostasis was obtained throughout the wound with electrocautery. Wounds were reapproximated with layers of 2-0 and 3- 0 Vicryl. Skin was reapproximated with 3-0 Monocryl. Sterile dressing was applied. The patient was extubated and taken to recovery room in stable condition.
--- NOTE | 2017-03-24 18:09 | Anesthesia Evaluation Post Op ---
Date of Encounter: 03/24/17 Time of Encounter: 18:08 - Vital Signs Vital Signs: Vital Signs/O2 Sat/Glucose, Most Current Temp Pulse Resp BP Pulse Ox 03/24/17 18:02 97.9 F 82 16 139/87 98 03/24/17 17:47 97.9 F 83 16 96/77 100 03/24/17 17:32 84 16 95/72 99 03/24/17 17:17 97.8 F 72 16 98/72 100 03/24/17 17:07 90 16 103/69 98 03/24/17 16:57 98 16 94/60 100 03/24/17 16:47 98.0 F 84 16 100/59 99 03/24/17 16:37 92 16 102/69 99 03/24/17 16:27 104 14 120/91 99 03/24/17 16:17 98.5 F 94 14 131/57 100 - Lungs Lungs: Clear Ascult./Percussion - Airway Airway: Non-obstructed - Cardiovascular Regular Rate - Mental Status Mental Status: Alert & Oriented, Answers Appropriately - Pain Pain Scale: 0 - Nausea Vomiting Nausea Vomiting: Not Present - Hydration Hydration: Ice chips - Discharge PostOp Status: Transfer Patient to floor
[2017-03-24] MEDS ORDERED: Ondansetron 4 MG/2 ML VIAL IVP PRN (18:15)
[2017-03-24] MEDS ORDERED: Acetaminophen 325 MG TABLET PO PRN (18:15)
[2017-03-24] MEDS ORDERED: *HR* Labetalol 20 MG/4 ML SYRINGE IVP PRN (18:15)
[2017-03-24] MEDS ORDERED: *HR* HYDROcodone/Acet 5/325 mg TABLET PO PRN (18:15)
[2017-03-24] MEDS ORDERED: Naloxone 0.4 MG/ML INJ IVP PRN (18:15)
[2017-03-24] MEDS ORDERED: *HR* Morphine 2 MG/ML SYRINGE IVP PRN (18:15)
[2017-03-24] MEDS: *HR* OxyCODONE Immed Rel 5 MG TABLET PO PRN (22:13)
[2017-03-25] MEDS: ceFAZolin 2,000 MG in D5% in Water 100 ML IVPB SCH ×2 (00:04→07:34)
[2017-03-25 04:07] LABS: Basophils % 0.2 %; Hematocrit 31.7 % (37.5-50.1); Hemoglobin 11.4 g/dL (12.9-16.9); Immature Granulocytes % 0.3 % (0-4); Lymphocytes # 0.8 K/mcL (0.6-4.6); Lymphocytes % 12.7 %; Mean Corpuscular Hemoglobin 31.3 pg (28.0-33.3); Mean Corpuscular Volume 87.1 fL (83.0-100.0); Mean Platelet Volume 10.8 fL (9.4-12.4); Monocytes # 0.5 K/mcL (0.0-1.3); Neutrophils # 5.1 K/mcL (1.6-8.9); Platelet Count 173 K/mcL (140-400); Red Blood Count 3.64 M/mcL (4.19-5.50); Red Cell Distribution Width 13.8 % (11.5-14.5); Segmented Neutrophils % 78.8 %
[2017-03-25 04:18] LABS: BUN/Creatinine Ratio 12 (6-26); Blood Urea Nitrogen 9 mg/dL (8-26); Calcium 8.6 mg/dL (8.6-10.8); Carbon Dioxide 24 mEq/L (19-29); Chloride 94 mEq/L (98-109); Glucose 117 mg/dL (70-99); Osmolality,Calculated 264 (280-300); Potassium 4.6 mEq/L (3.5-4.5); Sodium 127 mEq/L (136-145); eGFR For African Americans > 60 (> 60); eGFR For Non-African Americans > 60 (> 60)
[2017-03-25] MEDS ORDERED: *HR* Heparin 5,000 UNIT/ML VIAL SQ SCH ×2 (06:00)
--- NOTE | 2017-03-25 06:56 | Discharge Summary ---
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 He reports that his leg feels better today. His incisions are healing and he has a posterior pedal signal. His compartments are soft. He will be discharged today without complications. (2) COPD (chronic obstructive pulmonary disease) with emphysema Priority: Secondary Status: Chronic Qualifiers: Emphysema type: panlobular Qualified Code(s): J43.1 - Panlobular emphysema (3) Chronic alcohol abuse Priority: Secondary Status: Chronic (4) Hypertension Priority: Secondary Status: Chronic Qualifiers: Hypertension type: essential hypertension Qualified Code(s): I10 - Essential (primary) hypertension (5) Severe protein-calorie malnutrition Priority: Secondary Status: Chronic (6) Tobacco abuse Priority: Secondary Status: Chronic (7) Chronic disease anemia Priority: Secondary Status: Chronic Comments: The patient has chronic disease anemia with acute expected postoperative blood loss anemia. He received 1 unit or PRBCs. He remained hemodnamically stable without evidence of ongoing blood loss. - Discharge Medications Prescriptions: OxyCODONE/APAP 5/325 [Percocet 5/325 MG] 1 each PO Q4HR PRN #30 tablet PRN Reason: POSTOPERATIVE PAIN Home Medications: Aspirin Enteric Coated [Aspirin EC] 81 mg PO QAM 01/12/16 [History] traMADol [Ultram] 50 mg PO BID #7 tablet 02/09/16 [Rx] Acetaminophen [Tylenol] 1,000 mg PO Q6HR PRN 03/11/17 [History] Ibuprofen [Advil] 400 mg PO Q6H PRN 03/11/17 [History] Carvedilol [Coreg] 25 mg PO BIDWM #30 tablet 03/17/17 [Rx] Clopidogrel [Plavix] 75 mg PO DAILY #30 tablet 03/17/17 [Rx] Lisinopril [Zestril] 40 mg PO DAILY #30 tablet 03/17/17 [Rx] amLODIPine [Norvasc] 5 mg PO BID #30 tablet 03/17/17 [Rx] OxyCODONE/APAP 5/325 [Percocet 5/325 MG] 1 each PO Q4HR PRN #30 tablet 03/25/17 [Rx] Allergies/Adverse Reactions: Allergies No Known Allergies Allergy (Verified 03/24/17 10:14) Date of admission: 03/24/17 18:08 Primary care physician: Farzad Sharp Procedure(s) Performed: Left iliac angioplasty, left femoral and popliteal endartectomy, left femoral to popliteal artery bypass Discharging clinician: Nik Trujillo Anticipated date of discharge: 03/25/17 - Patient Status Disposition: Home, Self-Care Condition: Good Functional capacity at discharge: wheelchair bound Overall status at discharge: patient is back to baseline - Discharge Instructions Instructions: Peripheral Vascular Disorders (DC), Smoke Inhalation (DC) Follow Up With: Farzad Sharp DO [Primary Care Provider] - 04/01/17 11:00 am (Please call and confirm appt by TuesdayMarch 28. Thanks) Nik Trujillo MD [Partnered Physician] - 04/13/17 3:50 pm Additional Instructions: MAY REMOVE BANDAGE 03/26/17. MAY SHOWER 03/26/17. WASH WOUND GENTLY AND PAT TO DRY. APPLY DRY GAUZE TO WOUNDS DAILY FOR [address] TRUJILLO AT [phone] WITH QUESTIONS OR CONCERNS. - Diet and Activity Activity: resume usual activities as tolerated Diet: advance to your usual diet - Hospital Course Hospital course: Mr. Ramirez is a 51 year old male with a history of severe peripheral vascular disease. He was noted to have rest pain. he then was found to have superficial ulcers on his left toes. He was admitted on 03/24/17 and underwent bypass surgery, endarterectomy and angioplasty. He tolerated the procedure well. He had chronic anemia with acute expected postoperative blood loss anemia and received 1 unit of PRBCs. He remained hemodynamically stable. On postoperative day #1 he had significant improvement in his foot. His incisions were healing and he was discharged in stable condition. - Time Spent with Patient Total time spent providing and/or coordinating discharge services: Exam Vital Signs, Last 4 Hours Temp Pulse Resp BP Pulse Ox 03/25/17 03:55 98.5 F 66 16 147/81 99
[2017-03-25 07:20] VITALS: BP 130/69
[2017-03-25] MEDS: *HR* Metoprolol 5 MG/5 ML VIAL IVP SCH ×2 (07:32→11:47)
[2017-03-25] MEDS: *HR* OxyCODONE Immed Rel 5 MG TABLET PO PRN (07:33)
[2017-03-25] MEDS ORDERED: Lisinopril 20 MG TABLET PO SCH (09:00)
[2017-03-25] MEDS ORDERED: Aspirin Enteric Coated 81 MG Tablet PO SCH (09:00)
[2017-03-25] MEDS ORDERED: amLODIPine 5 MG TABLET PO SCH (09:00)
== END 2017-03-25 13:15 | disposition home or self-care (01) | DRG 270 ==
LOC: SAMDAY 09:26 → 2NNU 18:08
PROVIDERS: ADMIT Surgery; ATTEND Surgery

== ENCOUNTER 2017-07-05 13:26 | Inpatient (IN) ==
[2017-07-05] MEDS ORDERED: 0.9 % Sodium Chloride 1,000 ML IVC ONE ×2 (13:34→16:51)
--- NOTE | 2017-07-05 13:38 | Emergency Department Note ---
Disposition Clinical Impression: Septic shock, Hyponatremia, Acute kidney injury, Protein malnutrition Hypotension Qualifiers: Hypotension type: other hypotension type Qualified Code(s): I95.89 - Other hypotension Osteomyelitis of foot Qualifiers: Osteomyelitis type: unspecified type Laterality: left Qualified Code(s): M86.9 - Osteomyelitis, unspecified Anemia Qualifiers: Anemia type: unspecified type Qualified Code(s): D64.9 - Anemia, unspecified Disposition: Admitted As Inpatient Condition: Fair Time of Disposition: 17:35 General Adult HPI - General Chief complaint: ED Dizziness Stated complaint: low BP Time Seen by Provider: 07/05/17 13:32 Source: patient, EMS Mode of arrival: EMS Limitations: no limitations Nursing Notes Reviewed: Yes Vital Signs Reviewed: Yes - History of Present Illness HPI Narrative: 51-year-old male history of hypertension, severe peripheral vascular disease and right leg above knee amputation presents to the ED via EMS for low blood pressure and lightheadedness. Earlier today he attempted to get up and move around when he felt lightheaded and denies any loss of consciousness. He denies any associated headache, chest pain, shortness of breath. He checked his blood pressure and was reportedly 80/60. He states he has not been feeling well over the past several days. He has had some nausea and decreased appetite, not eating much. He is currently being treated for necrotic left foot with the coremaker supervisor Dr. Talley he has an appointment on the in 3 days. He was seen in the emergency department 2 days ago due to bleeding of his left foot, bleeding has been controlled since then he just recently changed his bandage. He denies any fever, cough, recent illness. Denies any abdominal pain. Denies any blood distal black tarry stools or hemoptysis. He admits to drinking one beer day, has not had any today. He denies any prior abdominal surgeries. He reports he has had a history of hypertension for past 4 years and admits to taking his blood pressure medication earlier today. Denies any recent changes his medication. States he took his lisinopril carvedilol and amlodipine today. His initial blood pressure 78/39. He has received 1 L of normal saline via EMS squad. Will continue with 30 cc/kg bolus. Septic workup initiated. Started on empiric antibiotics Vancomycin and Zosyn. Onset (ago): hour(s) - Related Data Home Medications Medication Instructions Recorded Confirmed Aspirin Enteric Coated [Aspirin EC] 81 mg PO QAM 01/12/16 07/05/17 Acetaminophen [Tylenol] 1,000 mg PO Q6HR PRN 03/11/17 07/05/17 Ibuprofen [Advil] 400 mg PO Q6H PRN 03/11/17 07/05/17 Amlodipine Besylate 10 mg PO DAILY 07/05/17 07/05/17 Lisinopril-HCTZ 20-12.5 [Prinzide 1 tab PO BID 07/05/17 07/05/17 20-12.5] Previous Rx's Medication Instructions Recorded traMADol [Ultram] 50 mg PO BID #7 tablet 02/09/16 Carvedilol [Coreg] 25 mg PO BIDWM #30 tablet 03/17/17 Clopidogrel [Plavix] 75 mg PO DAILY #30 tablet 03/17/17 OxyCODONE/APAP 5/325 [Percocet 1 each PO Q4HR PRN #30 tablet 03/25/17 5/325 MG] Allergies Allergy/AdvReac Type Severity Reaction Status Date / Time No Known Allergies Allergy Verified 03/24/17 10:14 All systems ED: reviewed and negative except as stated. Review of Systems: As Per HPI Constitutional: Denies: fever, chills Cardiovascular: Denies: chest pain, palpitations, dyspnea on exertion Respiratory: Denies: cough, dyspnea Gastrointestinal: Reports: nausea. Denies: abdominal pain Genitourinary: Denies: urgency, dysuria Musculoskeletal: Denies: back pain, neck pain Integumentary: Reports: lesions. Denies: rash, abrasion Neurological: Denies: headache, weakness, numbness Past Medical History - Past Medical History Attestation: Yes The following information was validated with the patient. Source: patient Medical history: Reports: hyperlipidemia, hypertension, myocardial infarction, peripheral artery disease Surgical history: Reports: cataract, LE stent(s), vascular surgery, other Psychiatric history: Reports: no psych history - Social History Smoking Status: Former smoker Smokeless Tobacco Status: No Alcohol use: Reports: heavy Drug use: Reports: none Physical Exam - General Limitations: no limitations General appearance: alert, in no apparent distress, other (very pale) - Head Head exam: atraumatic, normocephalic, normal inspection - Eye Eye exam: Present: normal appearance, EOMI. Absent: scleral icterus - ENT ENT exam: normal exam, normal oropharynx, mucous membranes moist - Neck Neck exam: Present: normal inspection, full ROM, trachea midline. Absent: tenderness, meningismus - Expanded Neck Exam Neck exam focused ED: Absent: midline tenderness - Chest Chest inspection: Present: normal inspection, symmetric chest wall rise. Absent : tenderness - Respiratory Respiratory exam: Present: normal lung sounds bilaterally. Absent: respiratory distress, wheezes - Cardiovascular Cardiovascular exam: Present: regular rate, normal rhythm, normal heart sounds - Expanded Cardiovascular Exam Peripheral pulses: 1+: dorsalis pedis (L) (faint) - Abdominal Exam Abdominal exam: Present: soft (scaphoid), Non-Tender. Absent: tenderness, distention, guarding, rebound, rigidity - Extremities Exam Extremities exam: Present: other (right above knee amputation) - Expanded Lower Extremity Exam Foot/toe exam: Present: laceration. Absent: crepitus, amputation 1 - necrosis of 4th toe - Neurological Exam Neurological exam: Present: alert - Expanded Neurological Exam Patient oriented to: Present: person, place Speech: Present: fluid speech Cranial nerves: EOM function (II, III, IV, ): Normal, facial sensation (V): Normal, facial palsy (VII): Normal, gag reflex (IX): Normal, spinal accessory function (XI): Normal, tongue deviation (XII): Normal Motor strength - LUE: 5/5 Motor strength - RUE: 5/5 (above knee amputation) Motor strength - LLE: 5/5 Motor strength - RLE: 5/5 Upper motor neuron exam: may neglect: Absent bilaterally - Skin Skin exam: Present: pallor Course - Reevaluation(s) Reevaluation #1: Patient appears in no acute distress. He is awake alert and oriented answer questions appropriately. Patient started on his 1st liter of normal saline here in the ED, this is his 2nd overall. His blood pressure is 123/81. His left foot was unwrapped and has a faint dorsal pedis pulses, +1. Delayed capillary refill. Septic workup initiated. Time: 14:06 Reevaluation #2: On initial presentation patient is awake and alert answer questions appropriately. After a 2nd liter of fluid patients has became acutely altered. He has no meningeal signs. Neurologic exam is normal without a focal neural deficits. CT head performed. He is currently responding to fluids for his blood pressure. X-ray was performed of his left toe which shows osteomyelitis but no gas. His ESR and CRP is elevated. His lactate is normal 1.4. He does have a mild acute kidney injury 1.48. He has a chronic hyponatremia he has been lower in the past. I do not suspect this is because of his altered mentation. I believe this is likely due to his septic toe. Spoke with podiatry and they would be happy to consult him on the floor. No immediate surgery at this time, possibly in the morning for OR. He has a history of chronic anemia however is hemoglobin is 6.8 here. We will transfuse someone pack red blood cell unit. Unable to get informed consent due to his altered mentation at this time. Time: 16:02 Reevaluation #3: Patient's sisters at the bedside. Reports he has been using a lot of blood from his left toe. He is now awake alert and oriented person place and time. He is answering questions appropriately. He has given consent for blood transfusion. His blood pressure remains stable. CT of the head is not reveal any acute intracranial abnormality or hemorrhage. There is evidence of small remote lacunar infarcts. Time: 16:50 - Consultations Consultation #1: Spoke with city alderman Dr. Alexander, does not meet ICU admission requirement. Called the hospitalist crystal Gallardo to admit for septic shock, anemia, hypotension, LAURA, protein malnutrition, hyponatremia, and osteomyelitis of left toe. Vitals remain stable. Continues to be fluid responsive. Time: 16:38 Vital Signs Temperature 97.8 F 07/05/17 13:27 Pulse Rate 70 07/05/17 13:27 Respiratory Rate 18 07/05/17 13:27 Blood Pressure 78/39 07/05/17 13:27 O2 Sat by Pulse Oximetry 98 07/05/17 13:27 Temperature 98.4 F 07/05/17 17:25 Pulse Rate 78 07/05/17 17:25 Respiratory Rate 16 07/05/17 17:25 Blood Pressure 88/41 07/05/17 17:25 O2 Sat by Pulse Oximetry 100 07/05/17 17:25 Oxygen Delivery Oxygen Delivery Room Air Medical Decision Making - Medical Records Medical records reviewed: Yes I reviewed the patient's medical records. - Lab Data Lab results reviewed: Yes I reviewed the patient's lab results. Result diagrams: 07/05/17 13:54 07/05/17 13:54 Lab Results 07/05/17 07/05/17 07/05/17 Range/Units 13:48 13:54 13:54 WBC 4.4 (4.3-11.1) K/mcL RBC 2.19 L (4.19-5.50) M/mcL Hgb 6.8 L (12.9-16.9) g/dL Hct 19.8 L (37.5-50.1) % MCV 90.4 (83.0-100.0) fL MCH 31.1 (28.0-33.3) pg MCHC 34.3 (31.6-35.5) g/dL RDW 12.4 (11.5-14.5) % Plt Count 215 (140-400) K/mcL MPV 10.1 (9.4-12.4) fL Immature Gran % 0.5 (0-4) % Seg Neutrophils % 72.7 % Lymphocytes % 15.0 % Monocytes % 11.1 % Eosinophils % 0.5 % Basophils % 0.2 % Neutrophils # 3.2 (1.6-8.9) K/mcL Lymphocytes # 0.7 (0.6-4.6) K/mcL Monocytes # 0.5 (0.0-1.3) K/mcL Eosinophils # 0.0 (0.0-0.6) K/mcL Basophils # 0.0 (0.0-0.2) K/mcL ESR (0-10) mm/hr Sodium 126 L (136-145) mEq/L Potassium 4.3 (3.5-4.5) mEq/L Chloride 95 L (98-109) mEq/L Carbon Dioxide 22 (19-29) mEq/L BUN 27 H (8-26) mg/dL Creatinine 1.48 H (0.72-1.25) mg/dL Est GFR ( Amer) > 60 (> 60) Est GFR (Non-Af Amer) 51 L (> 60) BUN/Creatinine Ratio 18 (6-26) Glucose 85 (70-99) mg/dL POC Glucose 96 H (58-89) Calculated Osmolality 266 L (280-300) Lactic Acid (0.5-2.2) mmol/L Calcium 8.2 L (8.6-10.8) mg/dL Phosphorus (2.3-4.7) mg/dL Magnesium (1.6-2.6) mg/dL Total Bilirubin 0.5 (0.2-1.2) mg/dL AST 11 (5-34) Units/L ALT 19 (0-55) Units/L Alkaline Phosphatase 177 H (38-126) Units/L Troponin I (0-0.03) ng/mL C-Reactive Protein 50 H (Less than 5) mg/L Serum Total Protein 5.9 L (6.0-8.3) g/dL Albumin 3.0 L (3.5-5.0) g/dL Globulin 2.9 (2.4-3.5) g/dL Albumin/Globulin Ratio 1.0 L (1.1-2.2) Urine Color (Yellow) Urine Clarity (Clear) Urine pH (5.0-8.0) pH Units Ur Specific [place] (1.010-1.025) Urine Protein (Neg-Trace) mg/dL Urine Glucose (UA) (Normal) mg/dL Urine Ketones (Negative) mg/dL Urine Blood (Negative) Urine Nitrite (Negative) Urine Bilirubin (Negative) Urine Urobilinogen (Normal) mg/dL Ur Leukocyte Esterase (Negative) Ur Culture Indicated? (NO) Blood Type Antibody Screen Crossmatch 07/05/17 07/05/17 07/05/17 Range/Units 13:54 14:09 14:09 WBC (4.3-11.1) K/mcL RBC (4.19-5.50) M/mcL Hgb (12.9-16.9) g/dL Hct (37.5-50.1) % MCV (83.0-100.0) fL MCH (28.0-33.3) pg MCHC (31.6-35.5) g/dL RDW (11.5-14.5) % Plt Count (140-400) K/mcL MPV (9.4-12.4) fL Immature Gran % (0-4) % Seg Neutrophils % % Lymphocytes % % Monocytes % % Eosinophils % % Basophils % % Neutrophils # (1.6-8.9) K/mcL Lymphocytes # (0.6-4.6) K/mcL Monocytes # (0.0-1.3) K/mcL Eosinophils # (0.0-0.6) K/mcL Basophils # (0.0-0.2) K/mcL ESR 45 H (0-10) mm/hr Sodium (136-145) mEq/L Potassium (3.5-4.5) mEq/L Chloride (98-109) mEq/L Carbon Dioxide (19-29) mEq/L BUN (8-26) mg/dL Creatinine (0.72-1.25) mg/dL Est GFR ( Amer) (> 60) Est GFR (Non-Af Amer) (> 60) BUN/Creatinine Ratio (6-26) Glucose (70-99) mg/dL POC Glucose (58-89) Calculated Osmolality (280-300) Lactic Acid 1.4 (0.5-2.2) mmol/L Calcium (8.6-10.8) mg/dL Phosphorus 3.4 (2.3-4.7) mg/dL Magnesium 1.6 (1.6-2.6) mg/dL Total Bilirubin (0.2-1.2) mg/dL AST (5-34) Units/L ALT (0-55) Units/L Alkaline Phosphatase (38-126) Units/L Troponin I (0-0.03) ng/mL C-Reactive Protein (Less than 5) mg/L Serum Total Protein (6.0-8.3) g/dL Albumin (3.5-5.0) g/dL Globulin (2.4-3.5) g/dL Albumin/Globulin Ratio (1.1-2.2) Urine Color (Yellow) Urine Clarity (Clear) Urine pH (5.0-8.0) pH Units Ur Specific [place] (1.010-1.025) Urine Protein (Neg-Trace) mg/dL Urine Glucose (UA) (Normal) mg/dL Urine Ketones (Negative) mg/dL Urine Blood (Negative) Urine Nitrite (Negative) Urine Bilirubin (Negative) Urine Urobilinogen (Normal) mg/dL Ur Leukocyte Esterase (Negative) Ur Culture Indicated? (NO) Blood Type Antibody Screen Crossmatch 07/05/17 07/05/17 07/05/17 Range/Units 14:09 15:08 15:23 WBC (4.3-11.1) K/mcL RBC (4.19-5.50) M/mcL Hgb (12.9-16.9) g/dL Hct (37.5-50.1) % MCV (83.0-100.0) fL MCH (28.0-33.3) pg MCHC (31.6-35.5) g/dL RDW (11.5-14.5) % Plt Count (140-400) K/mcL MPV (9.4-12.4) fL Immature Gran % (0-4) % Seg Neutrophils % % Lymphocytes % % Monocytes % % Eosinophils % % Basophils % % Neutrophils # (1.6-8.9) K/mcL Lymphocytes # (0.6-4.6) K/mcL Monocytes # (0.0-1.3) K/mcL Eosinophils # (0.0-0.6) K/mcL Basophils # (0.0-0.2) K/mcL ESR (0-10) mm/hr Sodium (136-145) mEq/L Potassium (3.5-4.5) mEq/L Chloride (98-109) mEq/L Carbon Dioxide (19-29) mEq/L BUN (8-26) mg/dL Creatinine (0.72-1.25) mg/dL Est GFR ( Amer) (> 60) Est GFR (Non-Af Amer) (> 60) BUN/Creatinine Ratio (6-26) Glucose (70-99) mg/dL POC Glucose (58-89) Calculated Osmolality (280-300) Lactic Acid (0.5-2.2) mmol/L Calcium (8.6-10.8) mg/dL Phosphorus (2.3-4.7) mg/dL Magnesium (1.6-2.6) mg/dL Total Bilirubin (0.2-1.2) mg/dL AST (5-34) Units/L ALT (0-55) Units/L Alkaline Phosphatase (38-126) Units/L Troponin I 0.00 (0-0.03) ng/mL C-Reactive Protein (Less than 5) mg/L Serum Total Protein (6.0-8.3) g/dL Albumin (3.5-5.0) g/dL Globulin (2.4-3.5) g/dL Albumin/Globulin Ratio (1.1-2.2) Urine Color Yellow (Yellow) Urine Clarity Clear (Clear) Urine pH 6.5 (5.0-8.0) pH Units Ur Specific [place] 1.009 L (1.010-1.025) Urine Protein Negative (Neg-Trace) mg/dL Urine Glucose (UA) Normal (Normal) mg/dL Urine Ketones Negative (Negative) mg/dL Urine Blood Negative (Negative) Urine Nitrite Negative (Negative) Urine Bilirubin Negative (Negative) Urine Urobilinogen Normal (Normal) mg/dL Ur Leukocyte Esterase Negative (Negative) Ur Culture Indicated? NO (NO) Blood Type A POSITIVE Antibody Screen NEGATIVE Crossmatch See Detail - Radiology Data Radiology results reviewed: Yes I reviewed the patient's radiology results. Chest X-Ray 07/05/17 13:49 IMPRESSION: No acute cardiopulmonary disease. D/ / Jose Reilly MD / Jose Reilly MD Interpreting Provider: Jose Reilly MD Foot X-Ray 07/05/17 14:21 IMPRESSION: 1. Diffuse soft tissue swelling potentially representing cellulitis given the clinical history. No findings suggestive of necrotizing fasciitis. 2. Suspected osteomyelitis involving the distal tuft of the left 4th distal phalanx. 3. Marked bony demineralization. D/ / Filiberto Cruz MD / Filiberto Cruz MD Interpreting Provider: Filiberto Cruz MD Head CT 07/05/17 14:21 IMPRESSION: No acute intracranial abnormality. Small remote bilateral basal ganglia lacunar infarcts again noted. D/ / Nik Rod MD / iNk Rod MD Interpreting Provider: Nik Rod MD - EKG Data EKG #1 EKG attestation: Yes I reviewed and interpreted this EKG. EKG results narrative: EKG performed 1336 normal sinus rhythm [address] elevations or depression, normal axis, good R wave progression. Intervals are within normal limits. No old EKG is available for comparison. Attestation Statement - Attestation Attestation: I examined this patient and my medical decision-making was reviewed with the Resident Physician. I agree with the documented findings, disposition and treatment plan as described except to the extent set forth below. 51-year-old male with multiple illnesses who presents with hypotension and concern for sepsis. He was fluid responsive, concern for necrotic toe and osteomyelitis as source of infection. Experienced intermittent confusion requiring advanced imaging of the brain with CT. Plan to admit for further evaluation of sepsis, fluid resuscitation, lactate was checked and was normal. Broad-spectrum antibiotics were initiated on arrival.
[2017-07-05 14:02] LABS: Basophils % 0.2 %; Eosinophils % 0.5 %; Hematocrit 19.8 % (37.5-50.1); Immature Granulocytes % 0.5 % (0-4); Lymphocytes # 0.7 K/mcL (0.6-4.6); Mean Corpuscular HGB Conc 34.3 g/dL (31.6-35.5); Mean Corpuscular Hemoglobin 31.1 pg (28.0-33.3); Mean Corpuscular Volume 90.4 fL (83.0-100.0); Mean Platelet Volume 10.1 fL (9.4-12.4); Monocytes # 0.5 K/mcL (0.0-1.3); Monocytes % 11.1 %; Neutrophils # 3.2 K/mcL (1.6-8.9); Platelet Count 215 K/mcL (140-400); Red Blood Count 2.19 M/mcL (4.19-5.50); Red Cell Distribution Width 12.4 % (11.5-14.5); Segmented Neutrophils % 72.7 %
[2017-07-05 14:05] LABS: Hemoglobin 6.8 g/dL (12.9-16.9)
[2017-07-05 14:18] LABS: Alanine Aminotransferase 19 Units/L (0-55); Alkaline Phosphatase 177 Units/L (38-126); Aspartate Amino Transferase 11 Units/L (5-34); BUN/Creatinine Ratio 18 (6-26); Bilirubin,Total 0.5 mg/dL (0.2-1.2); Blood Urea Nitrogen 27 mg/dL (8-26); Calcium 8.2 mg/dL (8.6-10.8); Carbon Dioxide 22 mEq/L (19-29); Chloride 95 mEq/L (98-109); Globulin 2.9 g/dL (2.4-3.5); Glucose 85 mg/dL (70-99); Osmolality,Calculated 266 (280-300); Potassium 4.3 mEq/L (3.5-4.5); Sodium 126 mEq/L (136-145); Total Protein 5.9 g/dL (6.0-8.3); eGFR For African Americans > 60 (> 60); eGFR For Non-African Americans 51 (> 60)
[2017-07-05] MEDS ORDERED: Piperacillin/Tazobactam 3.375 GM in D5% in Water (Mini-Bag+) 100 ML IVPB ONE (14:21)
[2017-07-05] MEDS ORDERED: Vancomycin 500 MG in D5% in Water 250 ML IVPB ONE (14:21)
[2017-07-05 14:31] LABS: Magnesium 1.6 mg/dL (1.6-2.6); Phosphorous 3.4 mg/dL (2.3-4.7)
[2017-07-05 14:43] LABS: C-Reactive Protein 50 mg/L (Less than 5)
[2017-07-05] MEDS ORDERED: Vancomycin 500 MG in D5% in Water (Mini-Bag+) 100 ML IVPB ONE (15:00)
[2017-07-05 15:36] LABS: Bilirubin,Urine Negative (Negative); Blood,Urine Negative (Negative); Clarity,Urine Clear (Clear); Color,Urine Yellow (Yellow); Glucose,Urine (UA) Normal (Normal); Ketones,Urine Negative (Negative); Leukocyte Esterase,Urine Negative (Negative); Nitrite,Urine Negative (Negative); PH,Urine 6.5 pH Units (5.0-8.0); Protein,Urine Negative (Neg-Trace); Specific Gravity,Urine 1.009 (1.010-1.025); Urobilinogen,Urine Normal (Normal)
[2017-07-05] MEDS ORDERED: 0.9 % Sodium Chloride 500 ML ONE (16:57)
[2017-07-05] MEDS ORDERED: Naloxone 0.4 MG/ML INJ IVP PRN (18:42)
[2017-07-05] MEDS ORDERED: Ondansetron ODT 4 MG TAB.RAPDIS SL PRN (18:42)
[2017-07-05] MEDS ORDERED: *HR* LORazepam 2 MG/ML VIAL IVP PRN ×3 (18:48)
[2017-07-05] MEDS ORDERED: Magnesium Sulfate 1 GM in D5% in Water 100 ML IVPB ONE (18:55)
[2017-07-05] MEDS ORDERED: Vancomycin 500 MG in D5% in Water 250 ML IVPB SCH (19:00)
[2017-07-05 19:39] LABS: Hematocrit 25.3 % (37.5-50.1); Hemoglobin 8.6 g/dL (12.9-16.9)
[2017-07-05] MEDS: 0.9 % Sodium Chloride 1,000 ML IVC SCH ×2 (19:39→23:29)
--- NOTE | 2017-07-05 20:12 | Internal Med History&Physical ---
<Federica Barfield M - Last Filed: 07/05/17 22:15> Date of Encounter: 07/05/17 Time of Encounter: 20:09 Assessment and Plan (1) Osteomyelitis of foot Current visit: Yes Status: Acute Patient with chronic necrotic left 4th toe. Xray today revealed diffuse soft tissue swelling and osteomyelitis of 4th toe. IVPB vanc and zosyn Podiatry consulted and plans surgery tomorrow. Qualifiers: Osteomyelitis type: unspecified type Laterality: left Qualified Code(s): M86.9 - Osteomyelitis, unspecified (2) Blood loss anemia Current visit: Yes Status: Acute Patient reports significant blood loss from his toe wound a few days ago. Hgb today of 6.8. He denies any black or bloody stools. 1 unit of blood ordered by ED and transfused. Check H/H Q6h. (3) Chronic hyponatremia Current visit: Yes Status: Chronic Patient with hyponatremia, sodium 126 today, consistent with baseline. Check sodium Q8hrs. (4) Necrosis of toe Current visit: Yes Status: Acute Patient with chronic necrosis of toe, now with cellulitis and osteomyelitis resulting in Sepsis. Podiatry consulted and plans to take patient to surgery tomorrow. NPO after midnight (5) Septic shock Current visit: Yes Status: Acute Patient presented with hypotension and lightheadedness. ESR, CRP were elevated. Patient with osteomyelitis as source of infection. His blood pressure responded to fluid resusitation. Lactic acid normal at 1.4 blood cultures drawn and sent. Continue Vanc and zosyn Continue IV fluids 0.9NS at 125mL/hr (6) Acute kidney injury Current visit: Yes Status: Acute Patient with BUN of 27 and creatinine of 1.48, up from recent baseline of 1.19. Likely secondary to septic shock and anemia. 1u of blood transfused and aggressive fluid resusitation. Check chemistry daily. (7) Chronic alcohol abuse Current visit: Yes Status: Chronic Patient with history of alcohol abuse, he reports he continues to drink 1-2 beers daily. [facility] protocol [place] consulted (8) COPD (chronic obstructive pulmonary disease) with emphysema Current visit: Yes Status: Chronic Not in exacerbation today. Budesonide formotorol BID, albuterol inhaler PRN. Qualifiers: Emphysema type: panlobular Qualified Code(s): J43.1 - Panlobular emphysema (9) Severe protein-calorie malnutrition Current visit: Yes Status: Chronic Patient with BMI of 14.8 (He does have right AKA, and BMI is not adjusted for amputation, but still too low), low albumin. Multivitamin daily Nutrition consulted. (10) DVT prophylaxis Current visit: Yes Status: Acute sequential compression devices. Holding aspirin and plavix and anticoagulation due to blood loss anemia. Internal Medicine - H&P: HPI Chief complaint: lightheadedness Admitted From: Emergency Dept Plans for Post Hospital Care: Home History of present illness: Mr. Ramirez is a 51 year old male with hypertension, peripheral vascular disease status post right lrnkj-djk-wyln amputation on left lower extremity vascular intervention, chronic left fourth toe necrosis presented to the emergency department today with complaints of lightheadedness and low blood pressure. Patient reports that he has had a poor appetite and nausea for several days. Today he developed lightheadedness and checked his blood pressure and noted it was 80/40. He has a left fourth toe necrosis for which she is being followed by podiatry as an outpatient and has been following their recommended treatment plan. He did have an episode of significant bleeding from this toe a few days ago for which he was seen in the emergency department. He denies any fever, chills, sweats, body aches. He denies any chest pain or shortness of breath. He denies any abdominal pain or diarrhea. He denies any black or bloody stools , currently other signs of bleeding besides from his necrotic toe. Evaluation in the emergency department revealed anemia with hemoglobin of 6.8 down from 11.4 on 03/25. Patient was hypotensive with blood pressures in the 70s to 80s systolic. ESR and CRP were elevated. He was an AK I with BUN of 27, and creatinine of 1.48. He was hyponatremic with sodium of 126. Blood cell count was normal at 4.4. Acid was normal 1.4. Foot x-ray showed diffuse soft tissue swelling consistent with cellulitis as well as osteomyelitis of the fourth toe. Podiatry was consulted and planned to take patient to surgery tomorrow. Patient had to be fluid resuscitated, but blood pressure responded to fluids. He also had an episode of confusion for which a head CT was obtained which showed no acute intracranial abnormality with small remote lacunar infarcts. Patient's confusion resolved. He was given 1 unit of blood. Blood cultures were obtained and he was started on Vanco and Zosyn. On exam, patient is alert and oriented, in no acute distress. Heart has regular rate and rhythm. Lungs have diminished breath sounds. Abdomen is soft, nontender with positive bowel sounds. Left third and fourth toe with areas of necrosis and dried blood as well as purulent drainage. Left foot with swelling and erythema consistent with cellulitis. Past Med Surg Social Fam HX - Past Medical History Medical history: hyperlipidemia, hypertension, myocardial infarction, peripheral artery disease Psychiatric history: no psych history - Past Surgical History Surgical History: cataract, LE stent(s), vascular surgery, other - Social History Smoking Status: Former smoker (66 pack year history) Smokeless Tobacco Status: No Alcohol use: heavy Drug use: none - Family History Father Adopted: No Family Member Ethnicity: Non- Living Status: Still Living Hx Family Cardiac Disorders: Yes (HTN) Hx Family Cancer: Yes (LUNG CANCER) Mother Adopted: No Living Status: Hx Family Cardiac Disorders: Yes (hypertension) Hx Family Respiratory Disorders: No Hx Family Cancer: No Hx Family GI Disorders: No Hx Family Endocrine Disorder: No Hx Family Neuromuscular Disorders: No Hx Family Neurologic Disorders: No Hx Family HEENT Disorders: No Hx Family Autoimmune Disorders: No Internal Medicine - H&P: Meds Aspirin Enteric Coated [Aspirin EC] 81 mg PO QAM 01/12/16 [History] traMADol [Ultram] 50 mg PO BID #7 tablet 02/09/16 [Rx] Acetaminophen [Tylenol] 1,000 mg PO Q6HR PRN 03/11/17 [History] Ibuprofen [Advil] 400 mg PO Q6H PRN 03/11/17 [History] Carvedilol [Coreg] 25 mg PO BIDWM #30 tablet 03/17/17 [Rx] Clopidogrel [Plavix] 75 mg PO DAILY #30 tablet 03/17/17 [Rx] OxyCODONE/APAP 5/325 [Percocet 5/325 MG] 1 each PO Q4HR PRN #30 tablet 03/25/17 [Rx] Amlodipine Besylate 10 mg PO DAILY 07/05/17 [History] Lisinopril-HCTZ 20-12.5 [Prinzide 20-12.5] 1 tab PO BID 07/05/17 [History] 3 Allergy/AdvReac Type Severity Reaction Status Date / Time No Known Allergies Allergy Verified 03/24/17 10:14 All Systems PM: A 10-system review of systems was performed and is negative for pertinent findings except as documented above in the HPI. - Constitutional Constitutional: no chills, no fever(s), no night sweats - EENT Eyes: no change in vision, no discharge, no pain, no photophobia Ears: no ear discharge, no ear pain, no tinnitus Nose, mouth and throat: no dysphagia, no nasal discharge, no neck pain, no sore throat - Cardiovascular Cardiovascular ROS IM: lightheadedness, no chest pain, no diaphoresis, no dyspnea, no palpitations, no syncope - Respiratory Respiratory: no cough, no dyspnea, no wheezing, no excessive phlegm production - Gastrointestinal Gastrointestinal: no abdominal pain, no diarrhea, no hematemesis, no hematochezia, no melena, no nausea, no vomiting - Musculoskeletal Musculoskeletal ROS IM: no numbness, no tingling - Integumentary Integumentary IM: non-healing lesions, no rash, no unusual bruising - Neurological Neurological ROS: confusion (transient), no convulsions, no focal weakness, no numbness, no tingling, no tremor(s) - Hematologic/Lymphatic Hematologic/Lymphatic: easy bleeding, no easy bruising - Constitutional Vitals: Temp Pulse Resp BP Pulse Ox 98.4 F 78 18 106/55 100 07/05/17 17:25 07/05/17 17:25 07/05/17 18:00 07/05/17 18:28 07/05/17 17:25 General appearance: Present: A&O X 3, pleasant, no acute distress Exam: pale - Head Head exam: Present: atraumatic, normocephalic - Eye Eye exam: Present: PERRL, sclera anicteric Pupils: Present: PERRL Additional comments: pale conjunctiva - Neck Neck exam general surgery: Present: supple, trachea midline. Absent: lymphadenopathy - Respiratory Respiratory exam: Present: decreased breath sounds. Absent: accessory muscle use, rales, rhonchi, wheezes - Cardiovascular Cardiovascular exam: Present: RRR, +S1, +S2. Absent: diastolic murmur, gallop, rubs, systolic murmur - GI/Abdominal GI/Abdominal exam: Present: normal bowel sounds, soft, no peritoneal signs. Absent: distended, tenderness - Extremities Exam Extremities exam: Present: warm, radial pulses palpable and symmetrical. Absent : calf tenderness, cyanotic Additional comments: right aka. Left 3rd and 4th toe with necrosis, dried blood and purulent drainage. Left forefoot with swelling and erythema consistent with cellulitis. - Neurological Exam Neurological exam: Present: CN II-XII intact, oriented X3, no focal deficits. Absent: pronater drift, facial droop, speech deficit - Skin Skin exam: Present: dry Internal Med - H&P Results - Labs CBC & Chem 7: 07/05/17 19:33 07/05/17 13:54 Labs: All Lab Results (24 Hours) 07/05/17 07/05/17 07/05/17 Range/Units 13:48 13:54 13:54 WBC 4.4 (4.3-11.1) K/mcL RBC 2.19 L (4.19-5.50) M/mcL Hgb 6.8 L (12.9-16.9) g/dL Hct 19.8 L (37.5-50.1) % MCV 90.4 (83.0-100.0) fL MCH 31.1 (28.0-33.3) pg MCHC 34.3 (31.6-35.5) g/dL RDW 12.4 (11.5-14.5) % Plt Count 215 (140-400) K/mcL MPV 10.1 (9.4-12.4) fL Immature Gran % 0.5 (0-4) % Seg Neutrophils % 72.7 % Lymphocytes % 15.0 % Monocytes % 11.1 % Eosinophils % 0.5 % Basophils % 0.2 % Neutrophils # 3.2 (1.6-8.9) K/mcL Lymphocytes # 0.7 (0.6-4.6) K/mcL Monocytes # 0.5 (0.0-1.3) K/mcL Eosinophils # 0.0 (0.0-0.6) K/mcL Basophils # 0.0 (0.0-0.2) K/mcL ESR (0-10) mm/hr Sodium 126 L (136-145) mEq/L Potassium 4.3 (3.5-4.5) mEq/L Chloride 95 L (98-109) mEq/L Carbon Dioxide 22 (19-29) mEq/L BUN 27 H (8-26) mg/dL Creatinine 1.48 H (0.72-1.25) mg/dL Est GFR ( Amer) > 60 (> 60) Est GFR (Non-Af Amer) 51 L (> 60) BUN/Creatinine Ratio 18 (6-26) Glucose 85 (70-99) mg/dL POC Glucose 96 H (58-89) Calculated Osmolality 266 L (280-300) Lactic Acid (0.5-2.2) mmol/L Calcium 8.2 L (8.6-10.8) mg/dL Phosphorus (2.3-4.7) mg/dL Magnesium (1.6-2.6) mg/dL Total Bilirubin 0.5 (0.2-1.2) mg/dL AST 11 (5-34) Units/L ALT 19 (0-55) Units/L Alkaline Phosphatase 177 H (38-126) Units/L Troponin I (0-0.03) ng/mL C-Reactive Protein 50 H (Less than 5) mg/L Serum Total Protein 5.9 L (6.0-8.3) g/dL Albumin 3.0 L (3.5-5.0) g/dL Globulin 2.9 (2.4-3.5) g/dL Albumin/Globulin Ratio 1.0 L (1.1-2.2) Urine Color (Yellow) Urine Clarity (Clear) Urine pH (5.0-8.0) pH Units Ur Specific [place] (1.010-1.025) Urine Protein (Neg-Trace) mg/dL Urine Glucose (UA) (Normal) mg/dL Urine Ketones (Negative) mg/dL Urine Blood (Negative) Urine Nitrite (Negative) Urine Bilirubin (Negative) Urine Urobilinogen (Normal) mg/dL Ur Leukocyte Esterase (Negative) Ur Culture Indicated? (NO) Blood Type Antibody Screen Crossmatch 07/05/17 07/05/17 07/05/17 Range/Units 13:54 14:09 14:09 WBC (4.3-11.1) K/mcL RBC (4.19-5.50) M/mcL Hgb (12.9-16.9) g/dL Hct (37.5-50.1) % MCV (83.0-100.0) fL MCH (28.0-33.3) pg MCHC (31.6-35.5) g/dL RDW (11.5-14.5) % Plt Count (140-400) K/mcL MPV (9.4-12.4) fL Immature Gran % (0-4) % Seg Neutrophils % % Lymphocytes % % Monocytes % % Eosinophils % % Basophils % % Neutrophils # (1.6-8.9) K/mcL Lymphocytes # (0.6-4.6) K/mcL Monocytes # (0.0-1.3) K/mcL Eosinophils # (0.0-0.6) K/mcL Basophils # (0.0-0.2) K/mcL ESR 45 H (0-10) mm/hr Sodium (136-145) mEq/L Potassium (3.5-4.5) mEq/L Chloride (98-109) mEq/L Carbon Dioxide (19-29) mEq/L BUN (8-26) mg/dL Creatinine (0.72-1.25) mg/dL Est GFR ( Amer) (> 60) Est GFR (Non-Af Amer) (> 60) BUN/Creatinine Ratio (6-26) Glucose (70-99) mg/dL POC Glucose (58-89) Calculated Osmolality (280-300) Lactic Acid 1.4 (0.5-2.2) mmol/L Calcium (8.6-10.8) mg/dL Phosphorus 3.4 (2.3-4.7) mg/dL Magnesium 1.6 (1.6-2.6) mg/dL Total Bilirubin (0.2-1.2) mg/dL AST (5-34) Units/L ALT (0-55) Units/L Alkaline Phosphatase (38-126) Units/L Troponin I (0-0.03) ng/mL C-Reactive Protein (Less than 5) mg/L Serum Total Protein (6.0-8.3) g/dL Albumin (3.5-5.0) g/dL Globulin (2.4-3.5) g/dL Albumin/Globulin Ratio (1.1-2.2) Urine Color (Yellow) Urine Clarity (Clear) Urine pH (5.0-8.0) pH Units Ur Specific [place] (1.010-1.025) Urine Protein (Neg-Trace) mg/dL Urine Glucose (UA) (Normal) mg/dL Urine Ketones (Negative) mg/dL Urine Blood (Negative) Urine Nitrite (Negative) Urine Bilirubin (Negative) Urine Urobilinogen (Normal) mg/dL Ur Leukocyte Esterase (Negative) Ur Culture Indicated? (NO) Blood Type Antibody Screen Crossmatch 07/05/17 07/05/17 07/05/17 Range/Units 14:09 15:08 15:23 WBC (4.3-11.1) K/mcL RBC (4.19-5.50) M/mcL Hgb (12.9-16.9) g/dL Hct (37.5-50.1) % MCV (83.0-100.0) fL MCH (28.0-33.3) pg MCHC (31.6-35.5) g/dL RDW (11.5-14.5) % Plt Count (140-400) K/mcL MPV (9.4-12.4) fL Immature Gran % (0-4) % Seg Neutrophils % % Lymphocytes % % Monocytes % % Eosinophils % % Basophils % % Neutrophils # (1.6-8.9) K/mcL Lymphocytes # (0.6-4.6) K/mcL Monocytes # (0.0-1.3) K/mcL Eosinophils # (0.0-0.6) K/mcL Basophils # (0.0-0.2) K/mcL ESR (0-10) mm/hr Sodium (136-145) mEq/L Potassium (3.5-4.5) mEq/L Chloride (98-109) mEq/L Carbon Dioxide (19-29) mEq/L BUN (8-26) mg/dL Creatinine (0.72-1.25) mg/dL Est GFR ( Amer) (> 60) Est GFR (Non-Af Amer) (> 60) BUN/Creatinine Ratio (6-26) Glucose (70-99) mg/dL POC Glucose (58-89) Calculated Osmolality (280-300) Lactic Acid (0.5-2.2) mmol/L Calcium (8.6-10.8) mg/dL Phosphorus (2.3-4.7) mg/dL Magnesium (1.6-2.6) mg/dL Total Bilirubin (0.2-1.2) mg/dL AST (5-34) Units/L ALT (0-55) Units/L Alkaline Phosphatase (38-126) Units/L Troponin I 0.00 (0-0.03) ng/mL C-Reactive Protein (Less than 5) mg/L Serum Total Protein (6.0-8.3) g/dL Albumin (3.5-5.0) g/dL Globulin (2.4-3.5) g/dL Albumin/Globulin Ratio (1.1-2.2) Urine Color Yellow (Yellow) Urine Clarity Clear (Clear) Urine pH 6.5 (5.0-8.0) pH Units Ur Specific [place] 1.009 L (1.010-1.025) Urine Protein Negative (Neg-Trace) mg/dL Urine Glucose (UA) Normal (Normal) mg/dL Urine Ketones Negative (Negative) mg/dL Urine Blood Negative (Negative) Urine Nitrite Negative (Negative) Urine Bilirubin Negative (Negative) Urine Urobilinogen Normal (Normal) mg/dL Ur Leukocyte Esterase Negative (Negative) Ur Culture Indicated? NO (NO) Blood Type A POSITIVE Antibody Screen NEGATIVE Crossmatch See Detail 07/05/17 Range/Units 19:33 WBC (4.3-11.1) K/mcL RBC (4.19-5.50) M/mcL Hgb 8.6 L D (12.9-16.9) g/dL Hct 25.3 L (37.5-50.1) % MCV (83.0-100.0) fL MCH (28.0-33.3) pg MCHC (31.6-35.5) g/dL RDW (11.5-14.5) % Plt Count (140-400) K/mcL MPV (9.4-12.4) fL Immature Gran % (0-4) % Seg Neutrophils % % Lymphocytes % % Monocytes % % Eosinophils % % Basophils % % Neutrophils # (1.6-8.9) K/mcL Lymphocytes # (0.6-4.6) K/mcL Monocytes # (0.0-1.3) K/mcL Eosinophils # (0.0-0.6) K/mcL Basophils # (0.0-0.2) K/mcL ESR (0-10) mm/hr Sodium (136-145) mEq/L Potassium (3.5-4.5) mEq/L Chloride (98-109) mEq/L Carbon Dioxide (19-29) mEq/L BUN (8-26) mg/dL Creatinine (0.72-1.25) mg/dL Est GFR ( Amer) (> 60) Est GFR (Non-Af Amer) (> 60) BUN/Creatinine Ratio (6-26) Glucose (70-99) mg/dL POC Glucose (58-89) Calculated Osmolality (280-300) Lactic Acid (0.5-2.2) mmol/L Calcium (8.6-10.8) mg/dL Phosphorus (2.3-4.7) mg/dL Magnesium (1.6-2.6) mg/dL Total Bilirubin (0.2-1.2) mg/dL AST (5-34) Units/L ALT (0-55) Units/L Alkaline Phosphatase (38-126) Units/L Troponin I (0-0.03) ng/mL C-Reactive Protein (Less than 5) mg/L Serum Total Protein (6.0-8.3) g/dL Albumin (3.5-5.0) g/dL Globulin (2.4-3.5) g/dL Albumin/Globulin Ratio (1.1-2.2) Urine Color (Yellow) Urine Clarity (Clear) Urine pH (5.0-8.0) pH Units Ur Specific [place] (1.010-1.025) Urine Protein (Neg-Trace) mg/dL Urine Glucose (UA) (Normal) mg/dL Urine Ketones (Negative) mg/dL Urine Blood (Negative) Urine Nitrite (Negative) Urine Bilirubin (Negative) Urine Urobilinogen (Normal) mg/dL Ur Leukocyte Esterase (Negative) Ur Culture Indicated? (NO) Blood Type Antibody Screen Crossmatch - Diagnostic Studies Chest x-ray Additional comments: Chest X-Ray 07/05/17 13:49 IMPRESSION: No acute cardiopulmonary disease. D/ / Jose Reilly MD / Jose Reilly MD Interpreting Provider: Jose Reilly MD CT scan - head Additional comments: Head CT 07/05/17 14:21 IMPRESSION: No acute intracranial abnormality. Small remote bilateral basal ganglia lacunar infarcts again noted. D/ / Nik Rod MD / Nik Rod MD Interpreting Provider: Nik Rod MD Other Images Additional comments: Foot X-Ray 07/05/17 14:21 IMPRESSION: 1. Diffuse soft tissue swelling potentially representing cellulitis given the clinical history. No findings suggestive of necrotizing fasciitis. 2. Suspected osteomyelitis involving the distal tuft of the left 4th distal phalanx. 3. Marked bony demineralization. D/ / Filiberto Cruz MD / Filiberto Cruz MD Interpreting Provider: Filiberto Cruz MD <Rashi Mcdonough - Last Filed: 07/05/17 23:37> Date of Encounter: 07/05/17 Internal Medicine - H&P: HPI History of present illness: Mr. Ramirez is a 51 year old male All Systems PM: A 10-system review of systems was performed and is negative for pertinent findings except as documented above in the HPI. - Constitutional Vitals: Temp Pulse Resp BP Pulse Ox 98.7 F 80 16 74/69 96 07/05/17 20:08 07/05/17 20:08 07/05/17 22:30 07/05/17 20:08 07/05/17 22:32 Internal Med - H&P Results - Labs CBC & Chem 7: 07/05/17 19:33 07/05/17 13:54 Labs: Short CBC 07/05/17 Range/Units 19:33 Hgb 8.6 L D (12.9-16.9) g/dL Hct 25.3 L (37.5-50.1) % - Attending Attestation I independently obtained history and examined this patient and my medical decision-making was reviewed with the nurse practitioner, Fedreica Barfield. I agree with the documented findings, disposition and treatment plan as described. My findings are summarized below: The patient is in no acute distress, awake alert and oriented. Heart exam reveals regular S1-S2 normal murmurs rubs or gallops. Lungs are clear. Left foot is wrapped in dressing. Right lower extremity sokwt-[id number]-ualn amputation Assessment: Osteomyelitis of the left third toe. Plan: IV antibiotics, nothing by mouth after midnight, podiatry consult. Continued smoking cessation counseling, I emphasized the benefits of continuing to refrain from tobacco use.
[2017-07-05] MEDS: traMADol 50 MG TABLET PO SCH (21:18)
[2017-07-05] MEDS: Budesonide/Formoterol 160/4.5 MDI IH SCH (22:29)
[2017-07-05] MEDS: Acetaminophen 325 MG TABLET PO PRN (23:27)
[2017-07-05] MEDS: Piperacillin/Tazobactam 3.375 GM in D5% in Water (Mini-Bag+) 100 ML IVPB SCH (23:28)
[2017-07-06 01:40] LABS: Basophils % 0.7 %; Eosinophils % 0.7 %; Hematocrit 22.7 % (37.5-50.1); Immature Granulocytes % 0.2 % (0-4); Lymphocytes # 0.8 K/mcL (0.6-4.6); Lymphocytes % 17.6 %; Mean Corpuscular HGB Conc 35.2 g/dL (31.6-35.5); Mean Corpuscular Hemoglobin 31.6 pg (28.0-33.3); Mean Corpuscular Volume 89.7 fL (83.0-100.0); Mean Platelet Volume 10.1 fL (9.4-12.4); Monocytes # 0.5 K/mcL (0.0-1.3); Monocytes % 10.6 %; Neutrophils # 3.1 K/mcL (1.6-8.9); Platelet Count 213 K/mcL (140-400); Red Blood Count 2.53 M/mcL (4.19-5.50); Red Cell Distribution Width 12.9 % (11.5-14.5); Segmented Neutrophils % 70.2 %
[2017-07-06 01:56] LABS: BUN/Creatinine Ratio 17 (6-26); Calcium 8.4 mg/dL (8.6-10.8); Carbon Dioxide 20 mEq/L (19-29); Chloride 98 mEq/L (98-109); Glucose 98 mg/dL (70-99); Magnesium 1.9 mg/dL (1.6-2.6); Osmolality,Calculated 263 (280-300); Phosphorous 2.2 mg/dL (2.3-4.7); Potassium 3.9 mEq/L (3.5-4.5); Sodium 126 mEq/L (136-145); eGFR For African Americans > 60 (> 60); eGFR For Non-African Americans > 60 (> 60)
[2017-07-06 01:59] LABS: Blood Urea Nitrogen 16 mg/dL (8-26)
--- NOTE | 2017-07-06 06:23 | Electrocardiograph Report ---
[facility] Test Date: 2017-07-05 Pat Name: Shay Ramirez Department: 102 Room: 2N06 Gender: M [employer]: Tmr : 1965 Requested By: Kyree Adorno Order Number: [id number] Reading MD: Noam Gilliam MD Measurements Intervals [place] Rate: 70 P: 71 SC: 139 QRS: 81 QRSD: 92 T: 64 QT: 402 QTc: 423 Interpretive Statements SINUS RHYTHM Electronically Signed On 07-06-2017 6:21:52 EDT by Noam Gilliam MD
[2017-07-06 07:32] LABS: Hematocrit 24.9 % (37.5-50.1); Hemoglobin 8.6 g/dL (12.9-16.9)
[2017-07-06] MEDS: Piperacillin/Tazobactam 3.375 GM in D5% in Water (Mini-Bag+) 100 ML IVPB SCH ×3 (07:46→23:29)
[2017-07-06] MEDS: 0.9 % Sodium Chloride 1,000 ML IVC SCH (07:46)
[2017-07-06] MEDS: traMADol 50 MG TABLET PO SCH ×2 (07:46→20:00)
[2017-07-06] MEDS: Budesonide/Formoterol 160/4.5 MDI IH SCH ×2 (08:11→19:44)
[2017-07-06] MEDS ORDERED: Sodium Phosphate 30 MMOL in D5% in Water 100 ML IVPB ONE (09:58)
[2017-07-06] MEDS ORDERED: 0.9 % Sodium Chloride 1,000 ML IVC SCH (10:00)
[2017-07-06] MEDS ORDERED: *HR* Heparin 5,000 UNIT/ML VIAL IVP PRN (10:16)
[2017-07-06] MEDS ORDERED: *HR* Heparin 5,000 UNIT/ML VIAL IVP ONE (10:16)
--- NOTE | 2017-07-06 10:25 | Internal Med Progress Note ---
Date of Encounter: 07/06/17 Time of Encounter: 10:23 - Assessment and plan (1) Osteomyelitis of foot Current Visit: Yes Status: Acute Assessment and plan: Patient presented with with gangrene of left third and fourth toes. X-ray left foot shows changes suggestive of osteomyelitis in distal phalanx of left fourth toe. Follow-up blood cultures and continue broad-spectrum IV antibiotics- vancomycin and Zosyn. Podiatry on board, plan for partial transmetatarsal amputation of 3, 4, 5 digits of left foot tomorrow. Qualifiers: Osteomyelitis type: unspecified type Laterality: left Qualified Code(s): M86.9 - Osteomyelitis, unspecified (2) Acute kidney injury Current Visit: Yes Status: Resolved Assessment and plan: Likely related to severe sepsis. Serum creatinine normalized today. Continue to monitor. (3) Severe sepsis Current Visit: Yes Status: Acute Assessment and plan: Patient presented with hypotension and acute renal dysfunction and noted to have left foot osteomyelitis. Blood pressure responded to IV hydration. Hypotension could also be due to blood loss anemia, responded to PRBC transfusion. Continue IV hydration and antibiotics as above. Lactic acid noted to be normal. (4) Chronic hyponatremia Current Visit: Yes Status: Chronic (5) Blood loss anemia Current Visit: Yes Status: Acute Assessment and plan: Hemoglobin responded to 1 unit PRBC transfusion. We will transfuse 1 more unit PRBC in preparation for surgery tomorrow. Patient is noted to have acute on chronic anemia, likely from blood loss from left fourth toe. (6) Chronic alcohol abuse Current Visit: Yes Status: Chronic Assessment and plan: No signs or symptoms of alcohol withdrawal at this time. Continue to monitor. (7) Hypertension Current Visit: Yes Status: Chronic Qualifiers: Hypertension type: essential hypertension Qualified Code(s): I10 - Essential (primary) hypertension (8) COPD (chronic obstructive pulmonary disease) with emphysema Current Visit: Yes Status: Chronic Qualifiers: Emphysema type: unspecified Qualified Code(s): J43.9 - Emphysema, unspecified (9) PVD (peripheral vascular disease) Current Visit: Yes Status: Chronic Assessment and plan: Patient is noted to have extensive peripheral vascular disease, status post right above-knee amputation. Recommended anticoagulation by Podiatry with IV heparin drip as he is a high risk for vascular occlusion/stenosis. - Subjective Interval history: Reports pain and swelling in his left foot with gangrenous fourth toe; improved dizziness and weakness; no fever/chills; - Constitutional Vitals: Temp Pulse Resp BP Pulse Ox 97.7 F 81 18 103/95 100 07/06/17 08:05 07/06/17 08:05 07/06/17 08:13 07/06/17 08:05 07/06/17 08:13 General appearance: Present: A&O X 3, answers questions appropriately - Respiratory Respiratory exam: Present: CTAB. Absent: accessory muscle use, rales, rhonchi, wheezes - Cardiovascular Cardiovascular exam: Present: RRR, +S1, +S2. Absent: diastolic murmur, gallop, rubs, systolic murmur - GI/Abdominal GI/Abdominal exam: Present: normal bowel sounds, soft, no peritoneal signs. Absent: distended, tenderness - Extremities Exam Extremities exam: Present: full ROM, warm, radial pulses palpable and symmetrical. Absent: calf tenderness, cyanotic, pedal edema Additional comments: s/p right AKA; left foot with diffuse edema, 4th distal toe wet gangrene, foul- smelling, tender; lateral third toe with gangrenous changes - Neurological Exam Neurological exam: Present: CN II-XII intact, oriented X3, no focal deficits. Absent: pronater drift, facial droop, speech deficit Internal Medicine: Result - Labs CBC & Chem 7: 07/06/17 12:48 07/06/17 01:32 Labs: Short CBC 07/05/17 07/06/17 07/06/17 Range/Units 19:33 01:32 06:51 WBC 4.4 (4.3-11.1) K/mcL Hgb 8.6 L D 8.0 L 8.6 L (12.9-16.9) g/dL Hct 25.3 L 22.7 L 24.9 L (37.5-50.1) % Plt Count 213 (140-400) K/mcL Neutrophils # 3.1 (1.6-8.9) K/mcL BMP 07/06/17 01:32 Sodium 126 L Potassium 3.9 Chloride 98 Carbon Dioxide 20 BUN 16 D Creatinine 0.95 Glucose 98 Calcium 8.4 L Consult Discharge Plan - Plan Referrals: Unassigned,Provider [Non-Partnered Physician] -
[2017-07-06 10:58] LABS: INR 1.2; Prothrombin Time 13.2 Seconds (9.4-12.1)
[2017-07-06 11:01] LABS: Activated Partial Thrombo Time 30.5 Seconds (26.0-36.0)
--- NOTE | 2017-07-06 11:03 | Podiatry Consult Note ---
Date of Encounter: 07/06/17 Time of Encounter: 09:45 Assessment and Plan (1) Gangrene of toe of left foot Current visit: Yes Status: Acute Assessment: #1 patient with gangrene of toes #3 and #4 with encroaching gangrene of toe #5. #2 peripheral vascular disease critical limb ischemia #3 multiple comorbidities as outlined in history from this admission Plan: #1 agree with present antibiotic therapy and optimizing patient medically at this juncture #2 patient will need partial transmetatarsal amputation of toes #345 left foot #3 discussed risks versus benefits as well as alternatives to surgical intervention. Risks include but are not limited to, loss of foot, loss of leg, loss of life, need for further surgery. Patient voices comprehension. Patient ample opportunity to ask questions about recommended procedures. Thus questions answered to satisfaction. We also discussed this with his sister who is present in the room were also had ample opportunity ask questions. She is his primary caregiver. History of Present Illness Chief complaint: Gangrene toes #3 and 4 left foot HPI: Mr. Ramirez is a 51 year old male, long history of peripheral as was the reason smoking. Patient is stopped smoking as of January of this year. He does have a [id number] history of tobaccoism. He presented to the ED and distress and was nonresponsive with plummeting blood pressures. Patient was medically optimized and is now alert oriented sitting up in bed with no complaints of chest pain nausea vomiting fever or chills. Patient has rest pain of his left leg. Patient undergone multiple procedures to his left lower extremity in March of this year than attempt to salvage his left limb. History of AKA right. Patient has osteomyelitis of the fourth toe left foot and progressive gangrene of the third toe and encroaching gangrene of the fifth toe left foot Past Med Surg Social Fam HX - Past Medical History Medical history: hyperlipidemia, hypertension, myocardial infarction, peripheral artery disease Psychiatric history: no psych history - Past Surgical History Surgical History: cataract, LE stent(s), vascular surgery, other - Social History Smoking Status: Former smoker (66 pack year history) Smokeless Tobacco Status: No Alcohol use: heavy Drug use: none - Family History Father Adopted: No Family Member Ethnicity: Non- Living Status: Still Living Hx Family Cardiac Disorders: Yes (HTN) Hx Family Cancer: Yes (LUNG CANCER) Mother Adopted: No Living Status: Hx Family Cardiac Disorders: Yes (hypertension) Hx Family Respiratory Disorders: No Hx Family Cancer: No Hx Family GI Disorders: No Hx Family Endocrine Disorder: No Hx Family Neuromuscular Disorders: No Hx Family Neurologic Disorders: No Hx Family HEENT Disorders: No Hx Family Autoimmune Disorders: No Medications and Allergies Aspirin Enteric Coated [Aspirin EC] 81 mg PO QAM 01/12/16 [History] traMADol [Ultram] 50 mg PO BID #7 tablet 02/09/16 [Rx] Acetaminophen [Tylenol] 1,000 mg PO Q6HR PRN 03/11/17 [History] Ibuprofen [Advil] 400 mg PO Q6H PRN 03/11/17 [History] Carvedilol [Coreg] 25 mg PO BIDWM #30 tablet 03/17/17 [Rx] Clopidogrel [Plavix] 75 mg PO DAILY #30 tablet 03/17/17 [Rx] OxyCODONE/APAP 5/325 [Percocet 5/325 MG] 1 each PO Q4HR PRN #30 tablet 03/25/17 [Rx] Amlodipine Besylate 10 mg PO DAILY 07/05/17 [History] Lisinopril-HCTZ 20-12.5 [Prinzide 20-12.5] 1 tab PO BID 07/05/17 [History] 3 Allergy/AdvReac Type Severity Reaction Status Date / Time No Known Allergies Allergy Verified 03/24/17 10:14 All Systems Reviewed: A 10-system review of systems was performed and is negative for pertinent findings except as documented above in the HPI. Physical Exam - Constitutional Vitals: Temp Pulse Resp BP Pulse Ox 97.7 F 81 18 103/95 100 07/06/17 08:05 07/06/17 08:05 07/06/17 08:13 07/06/17 08:05 07/06/17 08:13 General appearance: average body habitus, cooperative (Patient exhibits marco antonio gangrene of toe #3 and 4 of the left foot within encoaching gangrene of the fifth toe.), no acute distress - Expanded Lower Extremities Exam Neuro vascular tendon exam: Present: pulse deficit - Vascular Capillary Refill: sluggish Lower Extremity Vascular: pulse deficit, significant pain with passive ROM of distal joint (We observe complete gangrene of the fourth toe on the dorsal medial and plantar aspect and gangrene of the third toe and the lateral and plantar aspect as far proximal as the sulcus.) Results - Labs Result Diagrams: 07/06/17 06:51 07/06/17 01:32 Labs: Abnormal lab results RBC 2.53 M/mcL (4.19-5.50) L 07/06/17 01:32 Hgb 8.6 g/dL (12.9-16.9) L 07/06/17 06:51 Hct 24.9 % (37.5-50.1) L 07/06/17 06:51 ESR 45 mm/hr (0-10) H 07/05/17 13:54 Sodium 126 mEq/L (136-145) L 07/06/17 01:32 POC Glucose 96 (58-89) H 07/05/17 13:48 Calculated Osmolality 263 (280-300) L 07/06/17 01:32 Calcium 8.4 mg/dL (8.6-10.8) L 07/06/17 01:32 Phosphorus 2.2 mg/dL (2.3-4.7) L 07/06/17 01:32 Alkaline Phosphatase 177 Units/L (38-126) H 07/05/17 13:54 C-Reactive Protein 50 mg/L (Less than 5) H 07/05/17 13:54 Serum Total Protein 5.9 g/dL (6.0-8.3) L 07/05/17 13:54 Albumin 3.0 g/dL (3.5-5.0) L 07/05/17 13:54 Albumin/Globulin Ratio 1.0 (1.1-2.2) L 07/05/17 13:54 Ur Specific [place] 1.009 (1.010-1.025) L 07/05/17 15:08 H & H 07/05/17 07/06/17 07/06/17 Range/Units 19:33 01:32 06:51 Hgb 8.6 L D 8.0 L 8.6 L (12.9-16.9) g/dL Hct 25.3 L 22.7 L 24.9 L (37.5-50.1) % All other labs normal. - Diagnostic results Ankle/Foot x-ray: image reviewed Consult Discharge Plan - Plan Referrals: Unassigned,Provider [Non-Partnered Physician] -
[2017-07-06] MEDS: Heparin 25,000 UNIT/500 ML D5W 25,000 UNIT/500 ML MLS IVC SCH (11:16)
[2017-07-06 13:36] LABS: Hematocrit 24.3 % (37.5-50.1); Hemoglobin 8.4 g/dL (12.9-16.9)
[2017-07-06] MEDS: Vancomycin 500 MG in D5% in Water (Mini-Bag+) 100 ML IVPB SCH (15:19)
[2017-07-06] MEDS ORDERED: Thiamine (B-1) 100 MG, Folic Acid 1 MG, MVI, adult with vitamin K 10 ML in 0.9 % Sodi... IVPB SCH (18:00)
[2017-07-06] MEDS: *HR* Heparin 5,000 UNIT/ML VIAL IVP PRN (18:22)
[2017-07-06] MEDS: Acetaminophen 325 MG TABLET PO PRN (18:26)
[2017-07-06 19:43] LABS: Hematocrit 27.8 % (37.5-50.1); Hemoglobin 9.7 g/dL (12.9-16.9)
[2017-07-07] MEDS: *HR* Heparin 5,000 UNIT/ML VIAL IVP PRN (02:45)
[2017-07-07] MEDS: Vancomycin 500 MG in D5% in Water (Mini-Bag+) 100 ML IVPB SCH ×2 (04:45→14:34)
[2017-07-07 04:54] LABS: Hematocrit 28.3 % (37.5-50.1); Hemoglobin 9.9 g/dL (12.9-16.9)
[2017-07-07 06:21] LABS: Basophils % 0.8 %; Eosinophils # 0.1 K/mcL (0.0-0.6); Eosinophils % 1.6 %; Hematocrit 28.6 % (37.5-50.1); Hemoglobin 10.1 g/dL (12.9-16.9); Immature Granulocytes % 0.4 % (0-4); Lymphocytes % 18.6 %; Mean Corpuscular HGB Conc 35.3 g/dL (31.6-35.5); Mean Corpuscular Hemoglobin 30.7 pg (28.0-33.3); Mean Corpuscular Volume 86.9 fL (83.0-100.0); Mean Platelet Volume 10.8 fL (9.4-12.4); Monocytes # 0.5 K/mcL (0.0-1.3); Monocytes % 9.7 %; Neutrophils # 3.6 K/mcL (1.6-8.9); Platelet Count 226 K/mcL (140-400); Red Blood Count 3.29 M/mcL (4.19-5.50); Red Cell Distribution Width 13.2 % (11.5-14.5); Segmented Neutrophils % 68.9 %
[2017-07-07 06:37] LABS: BUN/Creatinine Ratio 8 (6-26); Blood Urea Nitrogen 6 mg/dL (8-26); Carbon Dioxide 24 mEq/L (19-29); Chloride 94 mEq/L (98-109); Glucose 101 mg/dL (70-99); Osmolality,Calculated 268 (280-300); Potassium 3.3 mEq/L (3.5-4.5); Sodium 130 mEq/L (136-145); eGFR For African Americans > 60 (> 60); eGFR For Non-African Americans > 60 (> 60)
[2017-07-07] MEDS: Piperacillin/Tazobactam 3.375 GM in D5% in Water (Mini-Bag+) 100 ML IVPB SCH ×3 (07:36→23:48)
[2017-07-07] MEDS: traMADol 50 MG TABLET PO SCH ×2 (07:37→20:21)
[2017-07-07] MEDS: Budesonide/Formoterol 160/4.5 MDI IH SCH ×2 (08:11→20:29)
[2017-07-07] MEDS ORDERED: Aminoglycoside Consult 1 EACH MC ONE (08:47)
--- NOTE | 2017-07-07 08:49 | Anesthesia Evaluation PreOp ---
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 ( no residual) Other Medical History: GERD Anesthesia History: No Prior Anesthetic Complications, Past Anesthesia Alcohol Use: heavy (H/O heavy EtOH use, decreased consumption 2 years ago) Drug use: none Medications and Allergies Aspirin Enteric Coated [Aspirin EC] 81 mg PO QAM 01/12/16 [History] traMADol [Ultram] 50 mg PO BID #7 tablet 02/09/16 [Rx] Acetaminophen [Tylenol] 1,000 mg PO Q6HR PRN 03/11/17 [History] Ibuprofen [Advil] 400 mg PO Q6H PRN 03/11/17 [History] Carvedilol [Coreg] 25 mg PO BIDWM #30 tablet 03/17/17 [Rx] Clopidogrel [Plavix] 75 mg PO DAILY #30 tablet 03/17/17 [Rx] OxyCODONE/APAP 5/325 [Percocet 5/325 MG] 1 each PO Q4HR PRN #30 tablet 03/25/17 [Rx] Amlodipine Besylate 10 mg PO DAILY 07/05/17 [History] Lisinopril-HCTZ 20-12.5 [Prinzide 20-12.5] 1 tab PO BID 07/05/17 [History] 3 Allergy/AdvReac Type Severity Reaction Status Date / Time No Known Allergies Allergy Verified 03/24/17 10:14 - Meds/Allergy Pre-op Review Medications Reviewed: Yes Allergies Reviewed: Yes Beta Blockers on Current Med List: No Anesthesia Results - Labs 07/07/17 05:16 07/07/17 05:16 - Imaging EKG: report reviewed (07/05/2017 SR) Additional studies: 01/14/2016 Echo LVEF 60% mild LV diastolic dysfunction no significant valvular dysfunction 02/28/2015 Stress Impression: Perfusion imaging was negative for ischemia or infarct. Pharmacologic ECG was negative for ischemia at the level of heart rate achieved. Patient had no chest pain with stress. Normal hemodynamic response. No arrhythmias noted with stress. Gated EF = 57%; abnormal gated septal motion. The LV is not dilated. There is no evidence of TID. Anesthesia Exam Vital Signs/O2 Sat/Glucose, Most Recent Temp Pulse Resp BP Pulse Ox 99.2 F 79 17 149/84 98 07/07/17 07:09 07/07/17 07:30 07/07/17 07:09 07/07/17 07:09 07/07/17 07:09 Blood Glucose* 96 Height: 5'3''/1.6 m Weight: 83 lbs/37.9 kg NPO (# of Hours): 8 Pain Scale: 0 Pain Scale Used: Numeric (1 - 10) - HEENT Pupil (Motor): EOMI Mallampati: II Teeth: Normal Oral Opening: Greater than 3 - DIE CASTING MACHINE MAINTAINER LOC: Oriented DIE CASTING MACHINE MAINTAINER Motor: Normal RUE, Normal LUE, Normal RLE, Normal LLE, Normal Face DIE CASTING MACHINE MAINTAINER Sensory: Normal: RUE, LUE, RLE, LLE, Face - Cardiac Rhythm: Regular Murmur: None - Pulmonary Breath Sounds: bilateral Clear Respiratory Effort: Symmetrical Anesthesia Assess/Plan ASA Score: 3 Modified [place] Scale for Level of Consciousness: Cooperative, oriented, and tranquil Anesthetic Plan: MAC Monitoring Plan: Standard Monitors
--- NOTE | 2017-07-07 09:02 | Internal Med Progress Note ---
Date of Encounter: 07/07/17 Time of Encounter: 09:01 - Assessment and plan (1) Osteomyelitis of foot Current Visit: Yes Status: Acute Assessment and plan: Patient presented with with gangrene of left third and fourth toes. X-ray left foot shows changes suggestive of osteomyelitis in distal phalanx of left fourth toe. Follow-up blood cultures and continue broad-spectrum IV antibiotics- vancomycin and Zosyn. Podiatry on board, plan for partial transmetatarsal amputation of 3, 4, 5 digits of left foot today. Qualifiers: Osteomyelitis type: unspecified type Laterality: left Qualified Code(s): M86.9 - Osteomyelitis, unspecified (2) Acute kidney injury Current Visit: Yes Status: Resolved (3) Severe sepsis Current Visit: Yes Status: Acute Assessment and plan: Patient presented with hypotension and acute renal dysfunction and noted to have left foot osteomyelitis. Blood pressure responded to IV hydration. Hypotension could also be due to blood loss anemia, responded to PRBC transfusion. Lactic acid noted to be normal. (4) Chronic hyponatremia Current Visit: Yes Status: Chronic (5) Blood loss anemia Current Visit: Yes Status: Acute Assessment and plan: Hemoglobin is currently stable. Patient received 2 units PRBC transfusion during this hospitalization. 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 Recommended anticoagulation by Podiatry with IV heparin drip as he is a high risk for vascular occlusion/stenosis. - Subjective Interval history: No new complaints; awaiting surgery for left toes amputation; no fever/chills, improved dizziness; no chest pain or dyspnea; - Constitutional Vitals: Temp Pulse Resp BP Pulse Ox 99.2 F 79 17 149/84 98 07/07/17 07:09 07/07/17 07:30 07/07/17 07:09 07/07/17 07:09 07/07/17 07:09 General appearance: Present: A&O X 3, answers questions appropriately - Respiratory Respiratory exam: Present: CTAB. Absent: accessory muscle use, rales, rhonchi, wheezes - Cardiovascular Cardiovascular exam: Present: RRR, +S1, +S2. Absent: diastolic murmur, gallop, rubs, systolic murmur - Extremities Exam Extremities exam: Present: warm, radial pulses palpable and symmetrical. Absent : calf tenderness, cyanotic, pedal edema Additional comments: s/p right AKA; left foot- 4th toe with wet gangrene and tenderness, along with adjacent lateral third toe involvement Internal Medicine: Result - Labs CBC & Chem 7: 07/07/17 05:16 07/07/17 05:16 Labs: Short CBC 07/06/17 07/06/17 07/07/17 Range/Units 12:48 19:33 01:15 WBC (4.3-11.1) K/mcL Hgb 8.4 L 9.7 L 9.9 L (12.9-16.9) g/dL Hct 24.3 L 27.8 L 28.3 L (37.5-50.1) % Plt Count (140-400) K/mcL Neutrophils # (1.6-8.9) K/mcL 07/07/17 Range/Units 05:16 WBC 5.2 (4.3-11.1) K/mcL Hgb 10.1 L (12.9-16.9) g/dL Hct 28.6 L (37.5-50.1) % Plt Count 226 (140-400) K/mcL Neutrophils # 3.6 (1.6-8.9) K/mcL BMP 07/07/17 05:16 Sodium 130 L Potassium 3.3 L Chloride 94 L Carbon Dioxide 24 BUN 6 L D Creatinine 0.74 Glucose 101 H Calcium 9.0 - ABG Interpretation ABG results: PT/INR, D-dimer PT 13.2 Seconds (9.4-12.1) H 07/06/17 10:42 Consult Discharge Plan - Plan Referrals: Farzad Mcclellan DO [Primary Care Provider] - (DR. MCCLELLAN'S OFFICE WANTS PATIENT TO MAKE THEIR OWN APPOINTMENTS)
[2017-07-07] MEDS ORDERED: *HR* FentaNYL (PF) 100 MCG/2 ML VIAL ONE (09:55)
[2017-07-07] MEDS ORDERED: *HR* Propofol 200 MG/20 ML VIAL IVP ONE (09:55)
[2017-07-07] MEDS ORDERED: Lidocaine -MPF 2% 2 ML VIAL ONE (09:55)
[2017-07-07] MEDS ORDERED: *HR* Phenylephrine 10 MG/ML VIAL ONE (09:57)
--- NOTE | 2017-07-07 11:33 | Orthopedic Operative Note ---
Date of procedure: 07/07/17 Pre-op diagnosis: Gangrene distal left forefoot involving toes #3 and 4 Post-op diagnosis: same Procedure: 07/07/17 11:31 #1 Partial transmetatarsal amputation involving toes #3 #4 #5 left foot Implants: None Complications: None Anesthesia: local, other (LMA) Local Anesthetics: 0.25% Sensorcaine HCL SubQ (cc), Other (10 mL of 2% plain lidocaine no epinephrine) Surgeon: Skinny Talley Estimated blood loss (cc): 5 Tourniquet Time (Minutes): 0 Specimen: Gangrenous toes #3 and #4 left foot, w #5 left foot. Respective metatarsal Condition: stable Disposition: PACU Procedure in Detail: 07/07/17 11:33 Details in summary of procedure: The patient was brought to the surgical suite, a sign in procedure was performed. Patient was then transferred to the surgical table and positioned properly safely securely. Patient then underwent smooth induction general anesthesia was achieved. The patient's left foot and leg were then placed on the elevated foam block. No tourniquet was used . An ankle block was then performed without difficulty or complication. The left foot was then prepped and draped in usual sterile manner. Surgical timeout was taken. The operation then began. Inspection, left foot revealed marco antonio gangrene of toes #3 and #4 was encroaching gangrenous changes of the fifth toe. There is no gangrene or actually encroached upon the dorsal or plantar aspect of the foot. A planned incision was then drawn on the dorsal aspect of the third toe from the sulcus distally and then plantarly and transversely the level sulcus to the lateral aspect of the fifth MTPJ. Dorsal incision was then drawn to the dorsal medial aspect of the third toe proximally to the base of the toe and then transversely to the lateral aspect of the fifth metatarsal phalangeal joint and then proximally along the midline of the lateral aspect of #5 metatarsal. That juncture using a laparotomy sponge the second toe was then gently retracted out of the way without significant tension. The incision was then placed the #15 scalpel blade gently down the bone the dorsal and medial aspect of the third toe and then brought distally and then proximally to the base of the toe and transversely to the lateral aspect of the fifth metatarsal and then proximally along the shaft of the fifth metatarsal. The plantar incision was then made the level sulcus beginning in the web space of the third toe and then brought laterally at the level of the sulcus meeting the dorsal incision at the lateral aspect of the MTPJ these incisions were carried directly down to bone. The wound was noted to ooze and bleed without necessitating use of a Bovie ligature. Capsular structures were then divided cleanly using a #15 scalpel blade forcefully there is no evidence of necrosis the deep tissues or evidence of active bone infection. Dividing the capsular structures dorsally medially and laterally to the level of the plantar capsule. A plantar incision was made directly down to the plantar plate is well toes were then disarticulated using a curved Metzenbaum scissor and sent for pathology. The dorsal aspect of the fifth fourth and third metatarsals were dissected free at the level of the periosteum proximally approximately 3 fingerbreadths. A plantar incision along the periosteum was also made with #15 scalpel blade and completed using a McGlamry elevator isolating metatarsals # 345. With gentle retraction dorsal and plantar flap using a command power saw osteotomies were made midshaft of the fifth and the fourth and the third metatarsals. There were then resected without difficulty or complication. The wound was flushed with copious amounts sterile saline. Finding no bone chips or debris was inspected again. The plantar and dorsal flaps were noted to be viable and were noted to bleed again without having to control hemostasis with the Bovie ligature. No deep sutures were placed for fear of restricting what little blood flow there is presently. The skin was then reapproximated loosely without tension using 3-0 Prolene and Steri-Strips. There is no necessity for a drain to be placed at this time. The wound was then augmented with Steri- Strips after placing skin prep on the dorsal and plantar flaps. Dry sterile dressing was applied consisting of sterile Adaptic 4 x 4 fluff dressings and Kerlix without compression. Patient tolerated the procedure well and was sent to PACU after being extubated within the operative theater. Capillary rebound time remained adequate 3 seconds for toes #1 and 2 after application of the dressing. Estimated blood loss less than 5 mL complications encountered none. Patient arrives the PACU with stable vital signs
[2017-07-07] MEDS ORDERED: Naloxone 0.4 MG/ML INJ IVP PRN (11:43)
[2017-07-07] MEDS ORDERED: *HR* Heparin 5,000 UNIT/ML VIAL IVP PRN ×2 (11:43)
[2017-07-07] MEDS ORDERED: Acetaminophen 325 MG TABLET PO PRN (11:43)
[2017-07-07] MEDS ORDERED: Ondansetron ODT 4 MG TAB.RAPDIS SL PRN (11:43)
[2017-07-07] MEDS ORDERED: *HR* LORazepam 2 MG/ML VIAL IVP PRN ×3 (11:43)
--- NOTE | 2017-07-07 11:49 | Anesthesia Evaluation Post Op ---
Date of Encounter: 07/07/17 Time of Encounter: 11:49 - Vital Signs Vital Signs: Vital Signs/O2 Sat, Most Current Temp Pulse Resp BP Pulse Ox 98.5 F 60 16 130/73 100 07/07/17 11:08 07/07/17 11:18 07/07/17 11:18 07/07/17 11:18 07/07/17 11:18 - Lungs Lungs: Clear Ascult./Percussion - Airway Airway: Non-obstructed - Cardiovascular Regular Rate - Mental Status Mental Status: Alert & Oriented, Answers Appropriately - Pain Pain Scale: 0 Pain Scale used: Numeric (1 - 10) - Nausea Vomiting Nausea Vomiting: Not Present - Hydration Hydration: NPO, Has not voided - Discharge PostOp Status: Transfer Patient to floor
[2017-07-07] MEDS: Heparin 25,000 UNIT/500 ML D5W 25,000 UNIT/500 ML MLS IVC SCH (14:33)
[2017-07-07] MEDS: *HR* OxyCODONE/APAP 5/325 TABLET PO PRN ×2 (16:39→22:48)
[2017-07-07] MEDS: Thiamine (B-1) 100 MG, Folic Acid 1 MG, MVI, adult with vitamin K 10 ML in 0.9 % Sodi... IVPB SCH (17:53)
[2017-07-07 21:19] LABS: Activated Partial Thrombo Time > 360.0 Seconds (26.0-36.0); Heparin anti-factor XA UFH 1.01 IU/mL (0.30-0.70)
[2017-07-08 00:43] LABS: Basophils % 0.4 %; Eosinophils # 0.1 K/mcL (0.0-0.6); Eosinophils % 0.6 %; Hematocrit 28.8 % (37.5-50.1); Immature Granulocytes % 0.2 % (0-4); Lymphocytes # 0.8 K/mcL (0.6-4.6); Lymphocytes % 7.8 %; Mean Corpuscular HGB Conc 34.7 g/dL (31.6-35.5); Mean Corpuscular Hemoglobin 30.8 pg (28.0-33.3); Mean Corpuscular Volume 88.6 fL (83.0-100.0); Mean Platelet Volume 10.5 fL (9.4-12.4); Monocytes # 0.9 K/mcL (0.0-1.3); Monocytes % 8.9 %; Neutrophils # 8.5 K/mcL (1.6-8.9); Platelet Count 253 K/mcL (140-400); Red Blood Count 3.25 M/mcL (4.19-5.50); Red Cell Distribution Width 13.1 % (11.5-14.5); Segmented Neutrophils % 82.1 %
[2017-07-08 00:58] LABS: BUN/Creatinine Ratio 8 (6-26); Blood Urea Nitrogen 6 mg/dL (8-26); Calcium 8.9 mg/dL (8.6-10.8); Carbon Dioxide 21 mEq/L (19-29); Chloride 91 mEq/L (98-109); Glucose 107 mg/dL (70-99); Osmolality,Calculated 252 (280-300); Potassium 4.2 mEq/L (3.5-4.5); eGFR For African Americans > 60 (> 60); eGFR For Non-African Americans > 60 (> 60)
[2017-07-08 01:03] LABS: Sodium 122 mEq/L (136-145)
[2017-07-08] MEDS: Vancomycin 500 MG in D5% in Water (Mini-Bag+) 100 ML IVPB SCH ×2 (01:29→11:19)
[2017-07-08] MEDS: Budesonide/Formoterol 160/4.5 MDI IH SCH ×2 (08:17→20:11)
[2017-07-08] MEDS: Heparin 25,000 UNIT/500 ML D5W 25,000 UNIT/500 ML MLS IVC SCH ×2 (08:26→18:19)
[2017-07-08] MEDS: traMADol 50 MG TABLET PO SCH ×2 (08:31→20:32)
[2017-07-08] MEDS: Piperacillin/Tazobactam 3.375 GM in D5% in Water (Mini-Bag+) 100 ML IVPB SCH (08:47)
--- NOTE | 2017-07-08 13:40 | Podiatry Progress Note ---
Date of Encounter: 07/08/17 Time of Encounter: 11:00 - Assessment and Plan (1) Critical ischemia of lower extremity Current Visit: No Status: Ruled-out 07/08/2017 Assessment: s.p #1 Partial transmetatarsal amputation involving toes #3 #4 #5 left foot per 07/08/2017 Patient resting comfortably on arrival Complains of minimal pain but states it bothered him throughout the night- requesting something to help him sleep tonight Incision line intact and without complication at this time. Patient may be discharged per podiatry standpoint when medically cleared- states he will be going to [facility]- consult for discharge planning Patient will be partial weight bearing to foot Will need wedge post operative shoe obtained for use in hospital and once transferred to [facility] Dressing will need to be changed daily, cleanse with saline, adaptic, 4x4 and kerlex Call with any concerns of dehiscence, ischemia, infection, bleeding. Internal medicine monitoring aPTT which will need to be stable prior to discharge to prevent bleeding complications Will prescribe 0.5mg dilaudid 1xonly HS if patient remains inpatient tonight. Do not administer if SBP <95. Patient will need appointment made to be seen in clinic tuesday or tuesday of next week with Dr.Boyle Michael or myself. Thanks! (2) Vascular occlusion Current Visit: No Status: Acute Subjective Interval history: Patient s/p #1 Partial transmetatarsal amputation involving toes #3 #4 #5 left foot. Patient has right AKA. Gangrene of foot due to vascular compromise. Patient resting comfortably on arrival. No issues at this time. States his leg hurt overnight and he was not able to sleep. Patient denies any fevers, chills, n/v or flu like symptoms. Patient Denies any calf pain. Rates pain 3/10 at this time. States he is going to a LTCF after discharge. Patient battled elevated aPTT overnight. Nurse at bedside states this is now stable but is due another draw at 1400. Objective - Vital Signs Vital Signs: Vital Signs Temp Pulse Resp BP Pulse Ox 07/08/17 12:00 98.4 F 83 15 142/82 99 07/08/17 08:18 14 97 07/08/17 07:05 98.6 F 85 14 132/87 97 07/08/17 04:56 98.3 F 85 16 149/82 99 07/07/17 23:26 99.1 F 89 18 150/76 97 07/07/17 20:29 18 99 07/07/17 18:50 98.4 F 84 18 154/94 100 07/07/17 18:00 90 17 137/72 100 07/07/17 17:00 161/69 07/07/17 16:32 76 07/07/17 16:00 95 153/86 07/07/17 15:51 97.8 F 86 15 129/82 100 07/07/17 15:00 73 149/68 07/07/17 14:00 74 104/73 Intake and Output 07/07/17 07/08/17 07/08/17 23:59 07:59 15:59 Intake Total 1109.7 / 1109.7 194.5 / 194.5 611.2 / 611.2 Output Total 775 / 775 212 / 2125 200 / 200 Balance 334.7 / 334.7 -1930.5 / -1930.5 411.2 / 411.2 Intake: IV Fluids 179.7 / 179.7 194.5 / 194.5 611.2 / 611.2 Heparin 25,000 UNIT/500 79.7 / 79.7 94.5 / 94.5 ML D5W 25,000 unit In 500 ml @ 12 UNIT/KG/HR 9.024 mls/hr IVC .Q24H [facility] Rx# :[id number] Zosyn 3.375 GM In 100 / 100 100 / 100 Dextrose 5% (Minibag+) 100 ML 100 ML @ 25 mls/hr IVPB Q8HR [facility] Rx#: [id number] Vitamin B-1 100 MG 511.2 / 511.2 Folvite 1 MG M.v.i. Adult 10 ml In 0.9 % Sodium Chloride 500 ML @ 85.2 mls/hr IVPB DAILY@1800 [facility] Rx#:[id number] Vancocin 500 MG In 100 / 100 Dextrose 5% (Minibag+) 100 ML 100 ML @ 100 mls/ hr IVPB Q12H [facility] Rx#: [id number] Oral 930 / 930 0 / 0 Output: Urine 775 / 775 2125 / 2125 200 / 200 Other: Meal Dinner Percent of Meal Consumed 0% Stool Size Large Moderate Stool Consistency loose loose Stool Color Brown Brown Green Green # Bowel Movements 1 Weight 38.7 kg Patient Weight 07/08/17 23:59 Weight 38.7 kg - Exam Exam: Podiatry General Exam: General appearance: alert awake oriented X 3. Calm and pleasant, no acute distress.. Vascular: Pedal pulses per signal, No evidence of cyanosis, pallor or rubor, Edema graded at 0+/4, Skin Temperature warm, No calf pain with manual compression. capillary refill time is immediate to dorsal aspect of foot. Neurologic: Sensation to moderate touch Postop Exam: S/P Sutures intact to incision line, no signs of dehiscence. Very small area of purple discoloration noted mid incision line, likely due to congestion however will need monitored closely for signs of ischemia. No open area, no drainage, no odor, no erythema, no streaking. Minimal edema and erythema which is expected post op There was a moderate amount of strikethrough draiange noted to surgical dressing on arrival, after removal of dressing there is no acute bleeding noted at this time. no oozing. - Lab Result Diagrams: 07/08/17 00:23 07/08/17 00:23 Labs: Abnormal lab results RBC 3.25 M/mcL (4.19-5.50) L 07/08/17 00:23 Hgb 10.0 g/dL (12.9-16.9) L 07/08/17 00:23 Hct 28.8 % (37.5-50.1) L 07/08/17 00:23 ESR 45 mm/hr (0-10) H 07/05/17 13:54 PT 13.2 Seconds (9.4-12.1) H 07/06/17 10:42 APTT 48.3 Seconds (26.0-36.0) H 07/08/17 12:58 Heparin Anti-Xa, Unfract 1.01 IU/mL (0.30-0.70) H* 07/07/17 20:35 Sodium 122 mEq/L (136-145) L D 07/08/17 00:23 Chloride 91 mEq/L (98-109) L 07/08/17 00:23 BUN 6 mg/dL (8-26) L 07/08/17 00:23 Glucose 107 mg/dL (70-99) H 07/08/17 00:23 POC Glucose 96 (58-89) H 07/05/17 13:48 Calculated Osmolality 252 (280-300) L 07/08/17 00:23 Phosphorus 2.2 mg/dL (2.3-4.7) L 07/06/17 01:32 Alkaline Phosphatase 177 Units/L (38-126) H 07/05/17 13:54 C-Reactive Protein 50 mg/L (Less than 5) H 07/05/17 13:54 Serum Total Protein 5.9 g/dL (6.0-8.3) L 07/05/17 13:54 Albumin 3.0 g/dL (3.5-5.0) L 07/05/17 13:54 Albumin/Globulin Ratio 1.0 (1.1-2.2) L 07/05/17 13:54 Ur Specific [place] 1.009 (1.010-1.025) L 07/05/17 15:08 Vancomycin Trough 9.5 mcg/mL (10-20) L 07/07/17 12:58 Consult Discharge Plan - Plan Referrals: Farzad Mcclellan DO [Primary Care Provider] - (DR. MCCLELLAN'S OFFICE WANTS PATIENT TO MAKE THEIR OWN APPOINTMENTS)
[2017-07-08] MEDS ORDERED: *HR* HYDROmorphone (PF) 1 MG/ML SYRINGE IVP ONE (13:51)
[2017-07-08] MEDS: 0.9 % Sodium Chloride 1,000 ML IVC SCH (14:31)
--- NOTE | 2017-07-08 16:42 | Internal Med Progress Note ---
Date of Encounter: 07/08/17 Time of Encounter: 12:40 - Assessment and plan (1) Osteomyelitis of foot Current Visit: Yes Status: Acute Assessment and plan: Patient presented with with gangrene of left third and fourth toes. X-ray left foot shows changes suggestive of osteomyelitis in distal phalanx of left fourth toe. Blood cultures remain negative; continue broad-spectrum IV antibiotics- vancomycin and Zosyn for 24hours after surgery. Podiatry on board, s/p partial transmetatarsal amputation of 3, 4, 5 digits of left foot. Case discussed with podiatry-surgical wound noted to be healing well, wound margins seemed to the and no evidence of residual osteomyelitis. Agrees with discontinuing antibiotics tomorrow. May discontinue IV heparin drip. Stable for discharge from podiatry standpoint. Physical and occupation therapy evaluation noted-recommend inpatient rehabilitation placement. office services representative on board. Qualifiers: Osteomyelitis type: unspecified type Laterality: left Qualified Code(s): M86.9 - Osteomyelitis, unspecified (2) Acute kidney injury Current Visit: Yes Status: Resolved (3) Severe sepsis Current Visit: Yes Status: Ruled-out Assessment and plan: Patient presented with hypotension and acute renal dysfunction and noted to have left foot osteomyelitis. Blood pressure responded to IV hydration. Hypotension could also be due to blood loss anemia, responded to PRBC transfusion. Lactic acid noted to be normal. (4) Chronic hyponatremia Current Visit: Yes Status: Chronic Assessment and plan: Noted to have acute on chronic hyponatremia, serum sodium noted to be 122. No mental status changes. Start IV hydration. Continue to monitor serum sodium. (5) Blood loss anemia Current Visit: Yes Status: Resolved Assessment and plan: Hemoglobin noted to be stable since surgery. Received 2 units PRBC transfusion during this admission. (6) Chronic alcohol abuse Current Visit: Yes Status: Chronic (7) Hypertension Current Visit: Yes Status: Chronic Qualifiers: Hypertension type: essential hypertension Qualified Code(s): I10 - Essential (primary) hypertension (8) COPD (chronic obstructive pulmonary disease) with emphysema Current Visit: Yes Status: Chronic Qualifiers: Emphysema type: unspecified Qualified Code(s): J43.9 - Emphysema, unspecified (9) PVD (peripheral vascular disease) Current Visit: Yes Status: Chronic - Subjective Interval history: No new complaints; left foot pain controlled with oral and IV pain meds; - Constitutional Vitals: Temp Pulse Resp BP Pulse Ox 99.1 F 80 16 127/75 99 07/08/17 15:11 07/08/17 15:11 07/08/17 15:11 07/08/17 15:11 07/08/17 15:11 General appearance: Present: A&O X 3, answers questions appropriately - Respiratory Respiratory exam: Present: CTAB. Absent: accessory muscle use, rales, rhonchi, wheezes - Cardiovascular Cardiovascular exam: Present: RRR, +S1, +S2. Absent: diastolic murmur, gallop, rubs, systolic murmur - GI/Abdominal GI/Abdominal exam: Present: normal bowel sounds, soft, no peritoneal signs. Absent: distended, tenderness - Extremities Exam Extremities exam: Present: warm, radial pulses palpable and symmetrical. Absent : calf tenderness, cyanotic, pedal edema Additional comments: s/p right AKA; left foot in surgical dressing Internal Medicine: Result - Labs CBC & Chem 7: 07/08/17 00:23 07/08/17 00:23 Labs: Short CBC 07/08/17 Range/Units 00:23 WBC 10.3 D (4.3-11.1) K/mcL Hgb 10.0 L (12.9-16.9) g/dL Hct 28.8 L (37.5-50.1) % Plt Count 253 (140-400) K/mcL Neutrophils # 8.5 (1.6-8.9) K/mcL BMP 07/08/17 00:23 Sodium 122 L D Potassium 4.2 Chloride 91 L Carbon Dioxide 21 BUN 6 L Creatinine 0.78 Glucose 107 H Calcium 8.9 - ABG Interpretation ABG results: PT/INR, D-dimer PT 13.2 Seconds (9.4-12.1) H 07/06/17 10:42 Consult Discharge Plan - Plan Referrals: Farzad Mcclellan DO [Primary Care Provider] - (DR. MCCLELLAN'S OFFICE WANTS PATIENT TO MAKE THEIR OWN APPOINTMENTS)
[2017-07-08] MEDS: Thiamine (B-1) 100 MG, Folic Acid 1 MG, MVI, adult with vitamin K 10 ML in 0.9 % Sodi... IVPB SCH (17:04)
[2017-07-08] MEDS: *HR* OxyCODONE/APAP 5/325 TABLET PO PRN (22:42)
[2017-07-09] MEDS: 0.9 % Sodium Chloride 1,000 ML IVC SCH (04:05)
[2017-07-09 05:00] LABS: BUN/Creatinine Ratio 8 (6-26); Blood Urea Nitrogen 6 mg/dL (8-26); Calcium 9.2 mg/dL (8.6-10.8); Carbon Dioxide 23 mEq/L (19-29); Chloride 98 mEq/L (98-109); Glucose 93 mg/dL (70-99); Magnesium 1.5 mg/dL (1.6-2.6); Osmolality,Calculated 267 (280-300); Potassium 3.6 mEq/L (3.5-4.5); eGFR For African Americans > 60 (> 60); eGFR For Non-African Americans > 60 (> 60)
[2017-07-09 05:05] LABS: Sodium 130 mEq/L (136-145)
[2017-07-09] MEDS: Budesonide/Formoterol 160/4.5 MDI IH SCH ×2 (08:10→20:37)
[2017-07-09] MEDS: traMADol 50 MG TABLET PO SCH ×2 (09:09→20:00)
[2017-07-09] MEDS ORDERED: Magnesium Sulfate 2 GM in D5% in Water 100 ML IVPB ONE (11:44)
--- NOTE | 2017-07-09 14:35 | Internal Med Progress Note ---
Date of Encounter: 07/09/17 Time of Encounter: 11:55 - Assessment and plan (1) Osteomyelitis of foot Current Visit: Yes Status: Acute Assessment and plan: Patient presented with with gangrene of left third and fourth toes. X-ray left foot shows changes suggestive of osteomyelitis in distal phalanx of left fourth toe. Blood cultures remain negative; Podiatry on board, s/p partial transmetatarsal amputation of 3, 4, 5 digits of left foot. discontinue IV antibiotics-vancomycin and Zosyn. Per podiatry-surgical wound noted to be healing well, wound margins seemed to the and no evidence of residual osteomyelitis. Stable for discharge from podiatry standpoint. Physical and occupation therapy evaluation noted- recommend inpatient rehabilitation placement. director of radio services on board. Qualifiers: Osteomyelitis type: unspecified type Laterality: left Qualified Code(s): M86.9 - Osteomyelitis, unspecified (2) Acute kidney injury Current Visit: Yes Status: Resolved (3) Severe sepsis Current Visit: Yes Status: Ruled-out (4) Chronic hyponatremia Current Visit: Yes Status: Chronic Assessment and plan: Noted to have acute on chronic hyponatremia, serum sodium improved to 130 today. No mental status changes. Will stop IV hydration. Continue to monitor serum sodium. (5) Blood loss anemia Current Visit: Yes Status: Resolved (6) Chronic alcohol abuse Current Visit: Yes Status: Chronic (7) Hypertension Current Visit: Yes Status: Chronic Qualifiers: Hypertension type: essential hypertension Qualified Code(s): I10 - Essential (primary) hypertension (8) COPD (chronic obstructive pulmonary disease) with emphysema Current Visit: Yes Status: Chronic Qualifiers: Emphysema type: unspecified Qualified Code(s): J43.9 - Emphysema, unspecified (9) PVD (peripheral vascular disease) Current Visit: Yes Status: Chronic Assessment and plan: Patient is noted to have extensive peripheral vascular disease, status post right above-knee amputation. Continue ASA and Plavix. - Subjective Interval history: No new complaints; left foot pain controlled with oral pain meds, gets worse with ambulation and weight bearing; awaiting rehab placement; - Constitutional Vitals: Temp Pulse Resp BP Pulse Ox 97.9 F 78 18 128/75 99 07/09/17 10:48 07/09/17 10:48 07/09/17 10:48 07/09/17 10:48 07/09/17 10:48 General appearance: Present: A&O X 3, answers questions appropriately - Respiratory Respiratory exam: Present: CTAB. Absent: accessory muscle use, rales, rhonchi, wheezes - Cardiovascular Cardiovascular exam: Present: RRR, +S1, +S2. Absent: diastolic murmur, gallop, rubs, systolic murmur - GI/Abdominal GI/Abdominal exam: Present: normal bowel sounds, soft, no peritoneal signs. Absent: distended, tenderness Internal Medicine: Result - Labs CBC & Chem 7: 07/08/17 00:23 07/09/17 04:15 Labs: BMP 07/09/17 04:15 Sodium 130 L D Potassium 3.6 Chloride 98 Carbon Dioxide 23 BUN 6 L Creatinine 0.74 Glucose 93 Calcium 9.2 - ABG Interpretation ABG results: PT/INR, D-dimer PT 13.2 Seconds (9.4-12.1) H 07/06/17 10:42 Consult Discharge Plan - Plan Referrals: Farzad Mcclellan DO [Primary Care Provider] - (DR. MCCLELLAN'S OFFICE WANTS PATIENT TO MAKE THEIR OWN APPOINTMENTS)
[2017-07-09] MEDS: Lisinopril-HCTZ 20-12.5mg TABLET PO SCH (20:00)
[2017-07-09] MEDS: *HR* OxyCODONE/APAP 5/325 TABLET PO PRN (23:12)
[2017-07-10] MEDS: traMADol 50 MG TABLET PO SCH ×2 (07:23→20:18)
[2017-07-10] MEDS: Aspirin Enteric Coated 81 MG Tablet PO SCH (07:23)
[2017-07-10] MEDS: amLODIPine 5 MG TABLET PO SCH (07:24)
[2017-07-10] MEDS: Lisinopril-HCTZ 20-12.5mg TABLET PO SCH ×2 (07:24→20:18)
[2017-07-10 07:27] LABS: BUN/Creatinine Ratio 9 (6-26); Blood Urea Nitrogen 7 mg/dL (8-26); Calcium 9.6 mg/dL (8.6-10.8); Carbon Dioxide 25 mEq/L (19-29); Chloride 96 mEq/L (98-109); Glucose 96 mg/dL (70-99); Magnesium 2.1 mg/dL (1.6-2.6); Osmolality,Calculated 268 (280-300); Potassium 3.7 mEq/L (3.5-4.5); Sodium 130 mEq/L (136-145); eGFR For African Americans > 60 (> 60); eGFR For Non-African Americans > 60 (> 60)
[2017-07-10] MEDS: Budesonide/Formoterol 160/4.5 MDI IH SCH ×2 (08:03→21:42)
--- NOTE | 2017-07-10 11:30 | Internal Med Progress Note ---
Date of Encounter: 07/10/17 Time of Encounter: 11:25 - Assessment and plan (1) Osteomyelitis of foot Current Visit: Yes Status: Acute Assessment and plan: Patient presented with with gangrene of left third and fourth toes. X-ray left foot shows changes suggestive of osteomyelitis in distal phalanx of left fourth toe. Blood cultures remain negative; Podiatry on board, s/p partial transmetatarsal amputation of 3, 4, 5 digits of left foot. Off IV antibiotics; Per podiatry-surgical wound noted to be healing well, wound margins seemed to the and no evidence of residual osteomyelitis. Stable for discharge from podiatry standpoint. Physical and occupation therapy evaluation noted- recommend inpatient rehabilitation placement. fiscal services director on board. Qualifiers: Osteomyelitis type: unspecified type Laterality: left Qualified Code(s): M86.9 - Osteomyelitis, unspecified (2) Acute kidney injury Current Visit: Yes Status: Resolved (3) Severe sepsis Current Visit: Yes Status: Ruled-out (4) Chronic hyponatremia Current Visit: Yes Status: Chronic Assessment and plan: Improving and stable serum sodium. No mental status changes. Continue to monitor serum sodium. (5) Blood loss anemia Current Visit: Yes Status: Resolved (6) Chronic alcohol abuse Current Visit: Yes Status: Chronic (7) Hypertension Current Visit: Yes Status: Chronic Qualifiers: Hypertension type: essential hypertension Qualified Code(s): I10 - Essential (primary) hypertension (8) COPD (chronic obstructive pulmonary disease) with emphysema Current Visit: Yes Status: Chronic Qualifiers: Emphysema type: unspecified Qualified Code(s): J43.9 - Emphysema, unspecified (9) PVD (peripheral vascular disease) Current Visit: Yes Status: Chronic Assessment and plan: Patient is noted to have extensive peripheral vascular disease, status post right above-knee amputation. Continue ASA and Plavix. - Subjective Interval history: No new complaints; left foot pain controlled with oral pain meds, gets worse with ambulation and weight bearing; awaiting rehab placement; - Constitutional Vitals: Temp Pulse Resp BP Pulse Ox 98.0 F 91 18 117/72 99 07/10/17 10:48 07/10/17 10:48 07/10/17 10:48 07/10/17 10:48 07/10/17 10:48 General appearance: Present: cachectic, A&O X 3, answers questions appropriately - Respiratory Respiratory exam: Present: CTAB. Absent: accessory muscle use, rales, rhonchi, wheezes - Cardiovascular Cardiovascular exam: Present: RRR, +S1, +S2. Absent: diastolic murmur, gallop, rubs, systolic murmur - GI/Abdominal GI/Abdominal exam: Present: normal bowel sounds, soft, no peritoneal signs. Absent: distended, tenderness Internal Medicine: Result - Labs CBC & Chem 7: 07/08/17 00:23 07/10/17 06:34 Labs: BMP 07/10/17 06:34 Sodium 130 L Potassium 3.7 Chloride 96 L Carbon Dioxide 25 BUN 7 L Creatinine 0.82 Glucose 96 Calcium 9.6 - ABG Interpretation ABG results: PT/INR, D-dimer PT 13.2 Seconds (9.4-12.1) H 07/06/17 10:42 Consult Discharge Plan - Plan Referrals: Farzad Mcclellan DO [Primary Care Provider] - (DR. MCCLELLAN'S OFFICE WANTS PATIENT TO MAKE THEIR OWN APPOINTMENTS)
[2017-07-10] MEDS: *HR* OxyCODONE/APAP 5/325 TABLET PO PRN (23:56)
[2017-07-11] MEDS: Budesonide/Formoterol 160/4.5 MDI IH SCH ×2 (07:41→22:10)
[2017-07-11] MEDS: amLODIPine 5 MG TABLET PO SCH (10:05)
[2017-07-11] MEDS: traMADol 50 MG TABLET PO SCH ×2 (10:05→20:55)
[2017-07-11] MEDS: Lisinopril-HCTZ 20-12.5mg TABLET PO SCH ×2 (10:05→20:55)
[2017-07-11] MEDS: Aspirin Enteric Coated 81 MG Tablet PO SCH (10:05)
--- NOTE | 2017-07-11 15:22 | Discharge Summary ---
Date of Encounter: 07/11/17 Time of Encounter: 11:55 - Discharge Diagnosis (1) Osteomyelitis of foot Priority: Primary Status: Acute Qualifiers: Osteomyelitis type: unspecified type Laterality: left Qualified Code(s): M86.9 - Osteomyelitis, unspecified (2) Acute kidney injury Priority: Primary Status: Resolved (3) Severe sepsis Priority: Primary Status: Ruled-out (4) Chronic hyponatremia Priority: Secondary Status: Chronic (5) Blood loss anemia Priority: Primary Status: Resolved (6) Chronic alcohol abuse Priority: Secondary Status: Chronic (7) Hypertension Priority: Secondary Status: Chronic Qualifiers: Hypertension type: essential hypertension Qualified Code(s): I10 - Essential (primary) hypertension (8) COPD (chronic obstructive pulmonary disease) with emphysema Priority: Secondary Status: Chronic Qualifiers: Emphysema type: unspecified Qualified Code(s): J43.9 - Emphysema, unspecified (9) PVD (peripheral vascular disease) Priority: Secondary Status: Chronic - Discharge Medications Home Medications: Aspirin Enteric Coated [Aspirin EC] 81 mg PO QAM 01/12/16 [History] traMADol [Ultram] 50 mg PO BID #7 tablet 02/09/16 [Rx] Carvedilol [Coreg] 25 mg PO BIDWM #30 tablet 03/17/17 [Rx] Clopidogrel [Plavix] 75 mg PO DAILY #30 tablet 03/17/17 [Rx] Amlodipine Besylate 10 mg PO DAILY 07/05/17 [History] Lisinopril-HCTZ 20-12.5 [Prinzide 20-12.5] 1 tab PO BID 07/05/17 [History] Acetaminophen [Tylenol] 650 mg PO Q6HR PRN tab 07/11/17 [Rx] OxyCODONE/APAP 5/325 [Percocet 5/325 MG] 1 each PO Q4HR PRN #20 tablet 07/11/17 [Rx] Allergies/Adverse Reactions: 3 Allergy/AdvReac Type Severity Reaction Status Date / Time No Known Allergies Allergy Verified 03/24/17 10:14 Date of admission: 07/05/17 17:22 Primary care physician: Farzad Nguyen Colopy Consults: 07/05/17 18:48 Consult to Rn Utilization Management Um [CONS] Routine Reason for SW Consult: alcoholic 07/05/17 19:36 Consult to Nutrition [CONS] Routine Comment: Consulting Provider: NUTRITION Reason for Dietary Consult: MST Score 07/08/17 08:49 Consult to Physical Therapy [CONS] Routine Comment: Evaluate, develop and implement POC Reason for Consult: discharge planning OT [Consult to Occupational Therapy] [CONS] Routine Comment: Evaluate, develop and implement POC Reason for Consult: discharge planning Discharging clinician: Mariaelena Chacon Anticipated date of discharge: 07/11/17 - Patient Status Disposition: Transfer Inpatient Rehab Fac Condition: Good Functional capacity at discharge: uses cane/walker Overall status at discharge: patient is progressing back to baseline - Discharge Instructions Follow Up With: Farzad Mcclellan DO [Primary Care Provider] - (DR. MCCLELLAN'S OFFICE WANTS PATIENT TO MAKE THEIR OWN APPOINTMENTS) Additional Instructions: F/up with PCP in 1-2 weeks F/up with Podiatry as scheduled Wound care instructions to left foot per Podiatry - Diet and Activity Activity: as per physical therapy Diet: low fat, low cholesterol Hospital course: Mr. Ramirez is a 51 year old male with the above medical problems, admitted with hypotension, dizziness and weakness. He was noted to have painful wet gangrene of left 4th toe and was treated with aggressive IV hydration and broad spectrum IV antibiotics- Vancomycin and Zosyn. He was noted to have acute on chronic anemia, related to blood loss from his toe. His Hb remained stable after receiving 2units PRBC. XRay of left foot was consistent with osteomyelitis of left 4th distal phalanx. Podiatry was consulted and patient underwent partial TMSA of 3, 4, 5 toes of left foot. His blood cultures remained negative and surgical resection was noted to be complete with no infection remaining. He was taken off antibiotics 24hours post surgery. He had right AKA in the past. PT/OT evaluation was done and recommended placement in inpatient rehabilitation. He is medically stable. - Time Spent with Patient Total time spent providing and/or coordinating discharge services: Greater than 30 minutes (40 min) - Constitutional Vitals: Temp Pulse Resp BP Pulse Ox 97.7 F 85 16 127/70 97 07/11/17 12:02 07/11/17 12:02 07/11/17 12:02 07/11/17 12:02 07/11/17 07:43 General appearance: Present: cachectic, A&O X 3, answers questions appropriately - Respiratory Respiratory exam: Present: CTAB. Absent: accessory muscle use, rales, rhonchi, wheezes - Cardiovascular Cardiovascular exam: Present: RRR, +S1, +S2. Absent: diastolic murmur, gallop, rubs, systolic murmur
--- NOTE | 2017-07-11 15:26 | Physician Discharge Referral ---
ExtendedCare Referral Info Provider in Charge: Mariaelena Chacon Provider in Charge after Transfer: PCP Institutional Level of Care: Intermediate - Diagnosis (1) Osteomyelitis of foot Priority: Primary Status: Acute (2) Acute kidney injury Priority: Primary Status: Resolved (3) Severe sepsis Priority: Primary Status: Ruled-out (4) Chronic hyponatremia Priority: Secondary Status: Chronic (5) Blood loss anemia Priority: Primary Status: Resolved (6) Chronic alcohol abuse Priority: Secondary Status: Chronic (7) Hypertension Priority: Secondary Status: Chronic (8) COPD (chronic obstructive pulmonary disease) with emphysema Priority: Secondary Status: Chronic (9) PVD (peripheral vascular disease) Priority: Secondary Status: Chronic Expected Duration of Placement: 3 weeks Prognosis: Fair Aware of Diagnosis: Patient Aware of Prognosis: Patient - Transfer Medications Home Medications: Aspirin Enteric Coated [Aspirin EC] 81 mg PO QAM 01/12/16 [History] traMADol [Ultram] 50 mg PO BID #7 tablet 02/09/16 [Rx] Carvedilol [Coreg] 25 mg PO BIDWM #30 tablet 03/17/17 [Rx] Clopidogrel [Plavix] 75 mg PO DAILY #30 tablet 03/17/17 [Rx] Amlodipine Besylate 10 mg PO DAILY 07/05/17 [History] Lisinopril-HCTZ 20-12.5 [Prinzide 20-12.5] 1 tab PO BID 07/05/17 [History] Acetaminophen [Tylenol] 650 mg PO Q6HR PRN tab 07/11/17 [Rx] OxyCODONE/APAP 5/325 [Percocet 5/325 MG] 1 each PO Q4HR PRN #20 tablet 07/11/17 [Rx] Allergies/Adverse Reactions: 3 Allergy/AdvReac Type Severity Reaction Status Date / Time No Known Allergies Allergy Verified 03/24/17 10:14 - Respiratory Orders Smoking Cessation: Smoking cessation has been advised. For more information, call the [place] Tobacco Quit Line at 8-487-RLJO-NOW. - Advance Directives Code Status: Full Code - Mobility Orders Ambulate - Rehabiliation Orders Rehab Potential: Fair Rehab Orders: ROM Exercises, Evaluation for Physical Therapy, Evaluation for Occupational Therapy - Diet Orders Cardiac CERTIFICATION: I certify that the transfer of the above named patient to an Extended Care Facility is necessary for the continuing treatment of the diagnosis listed. The above information is true and accurate reflection of patient's current condition. Confidential - Redisclosure prohibited without a patient's written consent.
[2017-07-11] MEDS: *HR* OxyCODONE/APAP 5/325 TABLET PO PRN ×2 (15:43→23:24)
--- NOTE | 2017-07-11 20:45 | Podiatry Progress Note ---
Date of Encounter: 07/12/17 Time of Encounter: 12:30 - Assessment and Plan (1) Gangrene of toe of left foot Current Visit: Yes Status: Acute s/p Partial transmetatarsal amputation involving toes #3 #4 #[address] Talley on 07/07/17. Dressing changed at bedside, incision line well approximated with steri strips and dried blood. Patient will be discharged to [facility]. Patient will be partial weight bearing to left foot with wedge post operative shoe. Dressing will need to be changed daily, cleanse with saline, adaptic, 4x4 and kerlix. Patient will need to f/u in Podiatry clinic with in one week of discharge from the hospital. Subjective Interval history: Patient is s/p partial transmetatarsal amputation involving toes #3 #4 #5 left foot on 07/07/[address] Talley. Patient is sitting up in bed eating lunch. Patient states pain to left foot is rated at a 3 out of 10. Dressing is dry and intact. No c/o fever, chills or calf pain. Objective - Vital Signs Vital Signs: Vital Signs Temp Pulse Resp BP Pulse Ox 07/11/17 12:02 97.7 F 85 16 127/70 07/11/17 07:43 16 97 07/11/17 06:46 98.0 F 87 16 123/80 97 07/10/17 23:58 98.7 F 80 14 146/76 98 07/10/17 21:44 14 100 07/10/17 20:59 99.1 F 70 14 123/76 96 Intake and Output 07/11/17 07/11/17 07/11/17 07:59 15:59 23:59 Intake Total 480 / 480 960 / 960 Output Total 1000 / 1000 500 / 500 775 / 775 Balance -1000 / -1000 -20 / -20 185 / 185 Intake: Oral 480 / 480 960 / 960 Output: Urine 1000 / 1000 500 / 500 775 / 775 Other: Meal Lunch Dinner Percent of Meal Consumed 5% 50% Weight 34.7 kg Patient Weight 07/11/17 23:59 Weight 34.7 kg - Exam Exam: General appearance: alert awake oriented X 3. Calm and pleasant, no acute distress.. Vascular: Pedal pulses palpable , No evidence of cyanosis, pallor or rubor, Edema graded at 1+/4, Skin Tempature warm, No calf pain with manual compression. capillary refill time is immediate to digits. Neurologic: Sensation intact with light touch to foot. . Postop Exam: S/P Sutures intact to incision line, no signs of dehiscence. No open area, no drainage, no odor, no erythema, no streaking. Minimal edema. - Lab Result Diagrams: 07/08/17 00:23 07/10/17 06:34 Labs: Abnormal lab results RBC 3.25 M/mcL (4.19-5.50) L 07/08/17 00:23 Hgb 10.0 g/dL (12.9-16.9) L 07/08/17 00:23 Hct 28.8 % (37.5-50.1) L 07/08/17 00:23 ESR 45 mm/hr (0-10) H 07/05/17 13:54 PT 13.2 Seconds (9.4-12.1) H 07/06/17 10:42 APTT 48.3 Seconds (26.0-36.0) H 07/08/17 12:58 Heparin Anti-Xa, Unfract 1.01 IU/mL (0.30-0.70) H* 07/07/17 20:35 Sodium 130 mEq/L (136-145) L 07/10/17 06:34 Chloride 96 mEq/L (98-109) L 07/10/17 06:34 BUN 7 mg/dL (8-26) L 07/10/17 06:34 POC Glucose 96 (58-89) H 07/05/17 13:48 Calculated Osmolality 268 (280-300) L 07/10/17 06:34 Phosphorus 2.2 mg/dL (2.3-4.7) L 07/06/17 01:32 Alkaline Phosphatase 177 Units/L (38-126) H 07/05/17 13:54 C-Reactive Protein 50 mg/L (Less than 5) H 07/05/17 13:54 Serum Total Protein 5.9 g/dL (6.0-8.3) L 07/05/17 13:54 Albumin 3.0 g/dL (3.5-5.0) L 07/05/17 13:54 Albumin/Globulin Ratio 1.0 (1.1-2.2) L 07/05/17 13:54 Ur Specific [place] 1.009 (1.010-1.025) L 07/05/17 15:08 Vancomycin Trough 9.5 mcg/mL (10-20) L 07/07/17 12:58 Consult Discharge Plan - Plan Additional Instructions: F/up with PCP in 1-2 weeks F/up with Podiatry as scheduled Wound care instructions to left foot per Podiatry Referrals: Farzad Mcclellan DO [Primary Care Provider] - (DR. MCCLELLAN'S OFFICE WANTS PATIENT TO MAKE THEIR OWN APPOINTMENTS)
[2017-07-12] MEDS: traMADol 50 MG TABLET PO SCH (09:11)
[2017-07-12] MEDS: Lisinopril-HCTZ 20-12.5mg TABLET PO SCH (09:11)
[2017-07-12] MEDS: amLODIPine 5 MG TABLET PO SCH (09:11)
[2017-07-12] MEDS: Aspirin Enteric Coated 81 MG Tablet PO SCH (09:11)
--- NOTE | 2017-07-12 09:26 | Internal Med Progress Note ---
<MalcomjasBravo chávez - Last Filed: 07/12/17 14:28> Date of Encounter: 07/12/17 Time of Encounter: 09:26 - Assessment and plan (1) Osteomyelitis of foot Status: Acute Assessment and plan: Patient was determined to have gangrene of left 3rd and 4th toes X-ray showed changes suggestive of osteomyelitis in distal phalanx of left 4th toe Podiatry seen and evaluated. Partial transmetatarsal amputation of 3rd, 4th, and 5th digits of left foot Completed antibiotics, blood cultures were negative. PT/OT recommended inpatient rehab placement, patient to be discharged today to [facility]. Discharge order placed. Patient to follow up with Podiatry in 1 week following discharge. Qualifiers: Osteomyelitis type: unspecified type Laterality: left Qualified Code(s): M86.9 - Osteomyelitis, unspecified (2) Acute kidney injury Status: Resolved (3) Severe sepsis Status: Resolved (4) Chronic hyponatremia Status: Chronic Assessment and plan: Na 130 yesterday, slowly correcting from 126 upon admission. Recommend follow up labwork in 3 days and PCP follow up. (5) Blood loss anemia Status: Resolved (6) COPD (chronic obstructive pulmonary disease) with emphysema Status: Chronic Assessment and plan: Known history of COPD, no current cough or shortness of breath reported. Satting well on room air. Follow up with PCP. Qualifiers: Emphysema type: unspecified Qualified Code(s): J43.9 - Emphysema, unspecified (7) PVD (peripheral vascular disease) Status: Chronic Assessment and plan: Known history of significant PVD with s/p right above the knee amputation and chronic lesions of left foot. Continue aspirin and plavix. - Subjective Interval history: Mr. Ramirez is a 51 year old male who was admitted for gangreneof his left 4th toe and osteomyelitis of his left 4th distal phalanx. Patient underwent partial TMSA of left toes 3, 4, and 5 on 07/07/17. Patient was to be discharge to [facility] yesterday, however, paperwork wasn't received by receiving facility. Patient did well overnight, no new complaints. Denies fevers, chills, sweats, nausea, vomiting, dysphagia, chest pain, shortness of breath, abdominal pain, changes in bowels or bladder, weakness, or new loss of sensation. Patient is to be discharged to inpatient rehab later today. Currently medically stable. To follow up with Podiatry in 1 week following discharge. - Constitutional Vitals: Temp Pulse Resp BP Pulse Ox 98.0 F 83 15 125/61 100 07/12/17 07:01 07/12/17 07:01 07/12/17 07:01 07/12/17 07:01 07/12/17 07:01 General appearance: Present: cachectic, A&O X 3, pleasant, answers questions appropriately - Head Head exam: Present: atraumatic, normal inspection, normocephalic - Eye Eye exam: Present: EOMI, normal appearance, PERRL - ENT ENT exam: Present: mucous membranes moist, normal exam, normal oropharynx - Neck Neck exam general surgery: Present: full ROM, normal inspection, supple, trachea midline. Absent: lymphadenopathy, tenderness - Respiratory Respiratory exam: Present: wheezes. Absent: rales (mild wheezing bilaterally), rhonchi - Cardiovascular Cardiovascular exam: Present: RRR, +S1, +S2. Absent: diastolic murmur, systolic murmur - GI/Abdominal GI/Abdominal exam: Present: normal bowel sounds, soft. Absent: distended, tenderness - Extremities Exam Extremities exam: Present: full ROM, warm, radial pulses palpable and symmetrical. Absent: pedal edema Additional comments: right above the knee amputation, Left foot wrapped in clean dry gauze, poor nail hygiene noted, mild tenderness to palpation - Back Exam Back exam: Present: full ROM, normal inspection. Absent: tenderness - Neurological Exam Neurological exam: Present: alert, oriented X3, no focal deficits. Absent: facial droop, speech deficit - Psychiatric Psychiatric exam: Present: normal affect, normal mood - Skin Skin exam: Present: dry, intact, normal color, warm Internal Medicine: Result - Labs CBC & Chem 7: 07/08/17 00:23 07/10/17 06:34 - ABG Interpretation ABG results: PT/INR, D-dimer PT 13.2 Seconds (9.4-12.1) H 07/06/17 10:42 Consult Discharge Plan - Plan Additional Instructions: F/up with PCP in 1-2 weeks F/up with Podiatry as scheduled Wound care instructions to left foot per Podiatry Referrals: Farzad Sharp DO [Primary Care Provider] - (DR. SHARP'S OFFICE WANTS PATIENT TO MAKE THEIR OWN APPOINTMENTS) <Pascual-Doug Almaguer - Last Filed: 07/12/17 15:26> Date of Encounter: 07/12/17 - Constitutional Vitals: Temp Pulse Resp BP Pulse Ox 97.5 F L 89 16 116/74 99 07/12/17 10:39 07/12/17 10:39 07/12/17 10:50 07/12/17 10:39 07/12/17 10:50 Internal Medicine: Result - Labs CBC & Chem 7: 07/08/17 00:23 07/10/17 06:34 - ABG Interpretation ABG results: PT/INR, D-dimer PT 13.2 Seconds (9.4-12.1) H 07/06/17 10:42 - Attending Attestation I examined this patient and my medical decision-making was reviewed with the Resident Physician. I agree with the documented findings, disposition and treatment plan as described except to the extent set forth below. Patient seen and examined by me. He underwent transmetatarsal amputation of toes #3 #4 and #5 left foot. Dressing has been changed. Patient is being discharged to [facility]. Stable for discharge today. No other acute events or complaints. Heart rate 89, blood pressure 116/74, O2 sat 99% on room air. Heart S1-S2 positive no murmurs or rubs. Lungs bilateral good entry no wheezes or crackles. Abdomen soft nontender no masses or guarding.
[2017-07-12 10:41] VITALS: BP 116/74
[2017-07-12] MEDS: Budesonide/Formoterol 160/4.5 MDI IH SCH (10:49)
[2017-07-12] MEDS: *HR* OxyCODONE/APAP 5/325 TABLET PO PRN (13:43)
== END 2017-07-12 14:52 | DRG 474 ==
LOC: EMEROO 13:26 → 2NNU 17:22 → 3ANU 07-07 18:36
PROVIDERS: ADMIT Internal Medicine; ATTEND Internal Medicine

== ENCOUNTER 2017-08-16 08:28 | Inpatient (IN) ==
[2017-08-16 09:45] LABS: Basophils % 0.7 %; Eosinophils # 0.1 K/mcL (0.0-0.6); Eosinophils % 2.5 %; Hematocrit 28.4 % (37.5-50.1); Hemoglobin 9.7 g/dL (12.9-16.9); Immature Granulocytes % 0.2 % (0-4); Lymphocytes # 0.5 K/mcL (0.6-4.6); Lymphocytes % 9.5 %; Mean Corpuscular HGB Conc 34.2 g/dL (31.6-35.5); Mean Corpuscular Hemoglobin 30.1 pg (28.0-33.3); Mean Corpuscular Volume 88.2 fL (83.0-100.0); Mean Platelet Volume 9.8 fL (9.4-12.4); Monocytes # 0.4 K/mcL (0.0-1.3); Monocytes % 7.7 %; Neutrophils # 4.4 K/mcL (1.6-8.9); Platelet Count 382 K/mcL (140-400); Red Blood Count 3.22 M/mcL (4.19-5.50); Red Cell Distribution Width 12.6 % (11.5-14.5); Segmented Neutrophils % 79.4 %
[2017-08-16 10:21] LABS: BUN/Creatinine Ratio 12 (6-26); Blood Urea Nitrogen 9 mg/dL (8-26); Carbon Dioxide 27 mEq/L (19-29); Chloride 92 mEq/L (98-109); Glucose 93 mg/dL (70-99); Osmolality,Calculated 262 (280-300); Potassium 4.5 mEq/L (3.5-4.5); Sodium 127 mEq/L (136-145); eGFR For African Americans > 60 (> 60); eGFR For Non-African Americans > 60 (> 60)
[2017-08-16] MEDS ORDERED: Naloxone 0.4 MG/ML INJ IVP PRN (12:42)
[2017-08-16] MEDS ORDERED: Acetaminophen 325 MG TABLET PO PRN (12:43)
--- NOTE | 2017-08-16 12:51 | Internal Medicine Consult Note ---
<Federica Barfield - Last Filed: 08/16/17 15:59> Date of Encounter: 08/16/17 Time of Encounter: 12:44 - Assessment and Plan (1) Cellulitis Current Visit: Yes Status: Acute Assessment and plan: Patient with recent partial trans-metatarsal amputation of left foot and has been recovering at [facility]. He follows with Dr. Talley. Recently, the incision and stump have been noted to be erythematous and necrotic appearing, with foul odor. Dr. Talley decided admission was required for IV antibiotics as well as I&D of incision/stump site. Surgery is planned for . Zosyn IVPB per Dr. Talley. NPO after midnight tomorrow night. Qualifiers: Site of cellulitis: extremity Site of cellulitis of extremity: lower extremity Laterality: left Qualified Code(s): L03.116 - Cellulitis of left lower limb (2) Hypertension Current Visit: Yes Status: Acute Assessment and plan: Patient with Hypertension. Has been well controlled since arrival. Continue home doses of Lisinopril/HCTZ, Coreg and amlodipine. Qualifiers: Hypertension type: essential hypertension Qualified Code(s): I10 - Essential (primary) hypertension (3) Smoker Current Visit: Yes Status: Acute Assessment and plan: Patient continues to smoke 1-2 cigarettes/day. Discussed and encouraged smoking cessation. Smoking cessation education and nicotine gum ordered prn. (4) Hyponatremia Current Visit: Yes Status: Acute Assessment and plan: Patient with chronic hyponatremia. Sodium of 127 today is consistent with baseline. Restrict free water to 1.5L daily. Check sodium BID. (5) DVT prophylaxis Current Visit: Yes Status: Acute Assessment and plan: sequential compression device heparin SQ TID. Internal Medicine - CN: HPI - Data of Consult Patient: known to practice within the last 3 years Requesting Physician: Skinny Talley, - Consult Narrative Reason for consult: management of medical comorbidities History of present illness: Mr. Ramirez is a 52 year old male with hypertension, peripheral vascular disease , hyperlipidemia, COPD, history of right [id number] amputation, recent history of left partial transmetatarsal amputation admitted to the podiatry service for additional surgical intervention on his left foot. The hospitalist team is been consulted to manage his medical comorbidities. Patient reports that he has been residing at [facility] since his partial transmetatarsal amputation couple weeks ago, and his incision has been healing, however recently it has become reddened, tender, necrotic, and with a foul order seductive boil decided to admit patient today. Patient denies any fever, chills, sweats, body aches. Patient denies any nausea, vomiting, abdominal pain or diarrhea. On exam, patient is alert and oriented, in no acute distress. Heart has regular rate and rhythm, lungs are clear bilaterally to auscultation. Left foot has dressing per podiatry, his first and second toes are visible, and have intact sensation and movement as well as normal capillary refill. Past Med Surg Social Fam HX - Past Medical History Medical history: hyperlipidemia, hypertension, myocardial infarction, peripheral artery disease Psychiatric history: no psych history - Past Surgical History Surgical History: cataract, LE stent(s), vascular surgery, other - Social History Smoking Status: Current every day smoker Packs per day: 1/2 Smokeless Tobacco Status: No Alcohol use: heavy Drug use: none - Family History Father Adopted: No Family Member Ethnicity: Non- Living Status: Still Living Hx Family Cardiac Disorders: Yes (HTN) Hx Family Cancer: Yes (LUNG CANCER) Mother Adopted: No Living Status: Hx Family Cardiac Disorders: Yes (hypertension) Hx Family Respiratory Disorders: No Hx Family Cancer: No Hx Family GI Disorders: No Hx Family Endocrine Disorder: No Hx Family Neuromuscular Disorders: No Hx Family Neurologic Disorders: No Hx Family HEENT Disorders: No Hx Family Autoimmune Disorders: No - Constitutional Constitutional: no anorexia, no chills, no fatigue, no fever(s), no night sweats , no weakness - Cardiovascular Cardiovascular ROS IM: no chest pain, no dyspnea, no edema, no palpitations, no syncope - Respiratory Respiratory: no cough, no dyspnea, no wheezing, no excessive phlegm production - Gastrointestinal Gastrointestinal: no abdominal pain, no diarrhea, no nausea, no vomiting - Genitourinary Genitourinary ROS male: no dysuria, no hematuria, no urinary frequency, no urinary urgency - Musculoskeletal Musculoskeletal ROS IM: numbness (chronic LLE), tingling (chronic LLE) - Integumentary Integumentary IM: erythema, non-healing lesions - Neurological Neurological ROS: no confusion Internal Medicine - CN: Meds Aspirin Enteric Coated [Aspirin EC] 81 mg PO QAM 01/12/16 [History] traMADol [Ultram] 50 mg PO BID #7 tablet 02/09/16 [Rx] Carvedilol [Coreg] 25 mg PO BIDWM #30 tablet 03/17/17 [Rx] Clopidogrel [Plavix] 75 mg PO DAILY #30 tablet 03/17/17 [Rx] Amlodipine Besylate 10 mg PO DAILY 07/05/17 [History] Lisinopril-HCTZ 20-12.5 [Prinzide 20-12.5] 1 tab PO BID 07/05/17 [History] Acetaminophen [Tylenol] 650 mg PO Q6HR PRN tab 07/11/17 [Rx] OxyCODONE/APAP 5/325 [Percocet 5/325 MG] 1 each PO Q4HR PRN #20 tablet 07/11/17 [Rx] 3 Allergy/AdvReac Type Severity Reaction Status Date / Time No Known Allergies Allergy Verified 03/24/17 10:14 Internal Medicine - CN: Exam - Constitutional Vitals: Temp Pulse Resp BP Pulse Ox 98.1 F 75 18 118/68 100 08/16/17 11:04 08/16/17 11:04 08/16/17 11:04 08/16/17 11:04 08/16/17 11:04 General appearance IM: Present: A&O X 3, pleasant, no acute distress - Head Head exam: Present: atraumatic, normocephalic - Eye Eye exam: Present: PERRL, conjuntiva pink, sclera anicteric - Neck Neck exam general surgery: Present: full ROM, supple - Respiratory Respiratory exam: Present: CTAB. Absent: rales, rhonchi, wheezes - Cardiovascular Cardiovascular exam IM: Present: RRR, +S1, +S2. Absent: clicks, gallop, systolic murmur - GI/Abdominal GI/Abdominal exam IM: Present: soft. Absent: distended, tenderness, no peritoneal signs - Extremities Exam Extremities exam IM: Present: pedal edema (LLE with trace edema. dressing in place per Podiatry). Absent: tenderness Internal Medicine - CN: Reslt - Labs CBC & Chem 7: 08/16/17 09:17 08/16/17 09:17 Labs: Short CBC 08/16/17 Range/Units 09:17 WBC 5.6 (4.3-11.1) K/mcL Hgb 9.7 L (12.9-16.9) g/dL Hct 28.4 L (37.5-50.1) % Plt Count 382 (140-400) K/mcL Neutrophils # 4.4 (1.6-8.9) K/mcL BMP 08/16/17 09:17 Sodium 127 L Potassium 4.5 Chloride 92 L Carbon Dioxide 27 BUN 9 Creatinine 0.78 Glucose 93 Calcium 10.0 - Impressions Impressions Foot X-Ray 08/16/17 09:03 IMPRESSION: 1. 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 2. Marked osteopenia. 3. Soft tissue prominence in the region of the stump and forefoot, which is increased from the prior exam. 4. No evidence of subcutaneous emphysema. D/ / Willard Lloyd MD / Willard Lloyd MD Interpreting Provider: Willard Lloyd MD - Diagnostic Studies Other Images Additional comments: Foot X-Ray 08/16/17 09:03 IMPRESSION: 1. 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 2. Marked osteopenia. 3. Soft tissue prominence in the region of the stump and forefoot, which is increased from the prior exam. 4. No evidence of subcutaneous emphysema. D/ / Willard Lloyd MD / Willard Lloyd MD Interpreting Provider: Willard Lloyd MD Consult Discharge Plan - Plan Referrals: Farzad Sharp DO [Primary Care Provider] - <Zaina Stewart - Last Filed: 08/16/17 16:33> Date of Encounter: 08/16/17 Time of Encounter: 14:30 Internal Medicine - CN: HPI - Data of Consult Requesting Physician: Skinny Talley, - Consult Narrative History of present illness: Mr. Ramirez is a 52 year old male Internal Medicine - CN: Exam - Constitutional Vitals: Temp Pulse Resp BP Pulse Ox 98.4 F 75 18 113/75 98 10/03/17 15:25 08/16/17 15:25 08/16/17 15:25 08/16/17 15:25 08/16/17 15:25 Internal Medicine - CN: Reslt - Labs CBC & Chem 7: 08/16/17 09:17 08/16/17 09:17 Labs: Short CBC 08/16/17 Range/Units 09:17 WBC 5.6 (4.3-11.1) K/mcL Hgb 9.7 L (12.9-16.9) g/dL Hct 28.4 L (37.5-50.1) % Plt Count 382 (140-400) K/mcL Neutrophils # 4.4 (1.6-8.9) K/mcL BMP 08/16/17 09:17 Sodium 127 L Potassium 4.5 Chloride 92 L Carbon Dioxide 27 BUN 9 Creatinine 0.78 Glucose 93 Calcium 10.0 - Impressions Impressions Foot X-Ray 08/16/17 09:03 IMPRESSION: 1. 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 2. Marked osteopenia. 3. Soft tissue prominence in the region of the stump and forefoot, which is increased from the prior exam. 4. No evidence of subcutaneous emphysema. D/ / Willard Lloyd MD / Willard Lloyd MD Interpreting Provider: Willard Lloyd MD - Attending Attestation I examined this patient and my medical decision-making was reviewed with the nurse practitioner, Federica Barfield. I agree with the documented history of present illness, review of systems, past medical, surgical social and family histories and examination findings, disposition and treatment plan as described above except to any changes set forth below. 52-year-old male patient with history of significant peripheral vascular disease with recent left foot partial transmetatarsal amputation who was residing at [facility] has been currently admitted here with worsening cellulitis and erythema with foul odor involving the stump site for incision and drainage and intravenous antibiotics. Procedure planned for this . We are consulted for medical management to her comorbidities. On examination , patient is status post right AKA. Left foot is currently bandaged. Exam findings as listed in nurse practitioner documentation. Heart sounds are normal without any murmur. Breath sounds normal with prolonged expiratory phase. No wheezing audible. Stage II decubitus ulcer on sacrum. Left foot cellulitis and infection of recent partial TMA stump: Continue IV antibiotics. Follow podiatry recommendations. Essential hypertension: Monitor blood pressure. Continue home medications Sacral decubitus ulcer: Local wound care. Frequent positioning. Peripheral vascular disease: Continue aspirin, Plavix. At risk for continued poor wound healing. Chronic hyponatremia: Uncertain etiology. Will monitor closely. If worsens, consider salt tablets or tolvaptan. Chronic anemia: Hemoglobin 9.7. Will monitor blood counts closely. Transfuse if needed post surgery.
[2017-08-16] MEDS ORDERED: Nicotine 2 MG GUM BC PRN (13:20)
--- NOTE | 2017-08-16 14:07 | Podiatry History & Physical ---
History of Present Illness HPI: Mr. Ramirez is a 52 year old male admitted to [facility] for necrosis to surgical wound. Patient is s/p partial transmetatarsal amputation involving toes #3 #4 # 5 left foot on 07/07/[address] Talley. Patient was admitted on 07/05/17 for osteomyelitis of the fourth toe left foot, gangrene of the third toe and fifth toe left foot. Patient was started on empiric antibiotics. All the infection was removed in surgery, antibiotics were discontinued after surgery. Patient was discharged on 07/12/17 to [facility] with wound care orders and a wedge shoe. History of AKA right. Patient arrived to Podiatry clinic today for a post op f/ u appointment and was admitted to the hospital due to necrosis and dehiscence of the surgical wound. Dr. Talley to plan on taking patient to surgery on for secondary wound closure with application of a wound vac. No c/o fever, chills, cp, calf pain, sob. Patient has a medical history significant for hyperlipidemia, hypertension, myocardial infarction, peripheral artery disease. Patient underwent extensive left lower extremity endarterectomy, left femoral to popliteal artery bypass and left iliac angioplasty in March [address] Trujillo. ABIs on 06/22/17 showed moderately diminished hemodynamics and moderately occlusive disease. . All Systems Reviewed: A 10-system review of systems was performed and is negative for pertinent findings except as documented above in the HPI. Past Med Surg Social Fam HX - Past Medical History Medical history: hyperlipidemia, hypertension, myocardial infarction, peripheral artery disease Psychiatric history: no psych history - Past Surgical History Surgical History: cataract, LE stent(s), vascular surgery, other - Social History Smoking Status: Current every day smoker Packs per day: 1/2 Smokeless Tobacco Status: No Alcohol use: heavy Drug use: none - Family History Father Adopted: No Family Member Ethnicity: Non- Living Status: Still Living Hx Family Cardiac Disorders: Yes (HTN) Hx Family Cancer: Yes (LUNG CANCER) Mother Adopted: No Living Status: Hx Family Cardiac Disorders: Yes (hypertension) Hx Family Respiratory Disorders: No Hx Family Cancer: No Hx Family GI Disorders: No Hx Family Endocrine Disorder: No Hx Family Neuromuscular Disorders: No Hx Family Neurologic Disorders: No Hx Family HEENT Disorders: No Hx Family Autoimmune Disorders: No Medications and Allergies Aspirin Enteric Coated [Aspirin EC] 81 mg PO QAM 01/12/16 [History] traMADol [Ultram] 50 mg PO BID #7 tablet 02/09/16 [Rx] Carvedilol [Coreg] 25 mg PO BIDWM #30 tablet 03/17/17 [Rx] Clopidogrel [Plavix] 75 mg PO DAILY #30 tablet 03/17/17 [Rx] Amlodipine Besylate 10 mg PO DAILY 07/05/17 [History] Lisinopril-HCTZ 20-12.5 [Prinzide 20-12.5] 1 tab PO BID 07/05/17 [History] Acetaminophen [Tylenol] 650 mg PO Q6HR PRN tab 07/11/17 [Rx] OxyCODONE/APAP 5/325 [Percocet 5/325 MG] 1 each PO Q4HR PRN #20 tablet 07/11/17 [Rx] 3 Allergy/AdvReac Type Severity Reaction Status Date / Time No Known Allergies Allergy Verified 03/24/17 10:14 Physical Exam - Constitutional Vitals: Temp Pulse Resp BP Pulse Ox 98.1 F 75 18 118/68 100 08/16/17 11:04 08/16/17 11:04 08/16/17 11:04 08/16/17 11:04 08/16/17 11:04 Exam: General appearance: alert awake oriented X 3. Calm and pleasant, no acute distress. Vascular: Left:Unable to palpate pedal pulse secondary to edema, No evidence of cyanosis, pallor or rubor, Edema graded at 1+/4, Skin Temperature warm, No calf pain with manual compression. capillary refill time is immediate to left foot Musculoskeletal: Right AKA. Postop Exam: S/P Sutures intact to incision line, necrotic area of skin proximal to incision line measuring 2 cm in length x 5 cm in width, malodorous. Superficial wound x2 dorsal aspect, proximal wound measuring 0.5 cm in length x 2 cm in width, base of wound with eschar, no periwound erythema, no pus, no streaking. Distal wound measuring 1.5 cm in length x 2.5 cm in width, base of wound pink, no pus, no periwound erythema. - Head Head exam: Present: atraumatic, normal inspection - Eye Eye exam: Present: EOMI - Respiratory Respiratory exam: Present: decreased breath sounds - Cardiovascular Cardiovascular exam: Present: RRR, +S1, +S2 - GI/Abdominal GI/Abdominal exam: Present: normal bowel sounds, soft - Skin Additional comments: Stage 2 pressure injury to the sacrum, base of wound is pink, no active drainage, no fluctuance, no exposed bone, no ligament or tendon. Results - Labs Result Diagrams: 08/16/17 09:17 08/16/17 09:17 Labs: Abnormal lab results RBC 3.22 M/mcL (4.19-5.50) L 08/16/17 09:17 Hgb 9.7 g/dL (12.9-16.9) L 08/16/17 09:17 Hct 28.4 % (37.5-50.1) L 08/16/17 09:17 Lymphocytes # 0.5 K/mcL (0.6-4.6) L 08/16/17 09:17 ESR 110 mm/hr (0-10) H 08/16/17 09:17 Sodium 127 mEq/L (136-145) L 08/16/17 09:17 Chloride 92 mEq/L (98-109) L 08/16/17 09:17 Calculated Osmolality 262 (280-300) L 08/16/17 09:17 H & H 08/16/17 Range/Units 09:17 Hgb 9.7 L (12.9-16.9) g/dL Hct 28.4 L (37.5-50.1) % All other labs normal. Assessment and Plan (1) PVD (peripheral vascular disease) Current visit: No Status: Chronic (2) Wound dehiscence, surgical Current visit: Yes Status: Acute Assessment: S/p partial transmetatarsal amputation involving toes #3 #4 #5 left foot on 07/[address] Talley. Necrosis of surgical wound to left foot with dehiscence. Stage 2 deep tissue pressure injury to the sacrum. Plan: Dr. Talley to take patient to surgery on 08/18/17 for secondary wound closure and application of wound vac. Started on IV Zosyn prophylactically. Wound care ordered for left foot. Hospitalist consulted for management of comorbidities. registered nurse surgical services consulted. Wound care consulted for stage 2 deep tissue pressure injury to the sacrum. Qualifiers: Encounter type: initial encounter Qualified Code(s): T81.31XA - Disruption of external operation (surgical) wound, not elsewhere classified, initial encounter (3) Necrosis of surgical wound Current visit: Yes Status: Acute Qualifiers: Encounter type: initial encounter Qualified Code(s): T81.89XA - Other complications of procedures, not elsewhere classified, initial encounter; I96 - Gangrene, not elsewhere classified; I96 - Gangrene, not elsewhere classified; I96 - Gangrene, not elsewhere classified (4) Deep tissue injury Current visit: Yes Status: Acute Stage 2 deep tissue pressure injury to the sacrum. Wound care consulted for stage 2 deep tissue pressure injury to the sacrum.
[2017-08-16] MEDS: Piperacillin/Tazobactam 3.375 GM in D5% in Water (Mini-Bag+) 100 ML IVPB SCH (16:59)
[2017-08-16] MEDS: *HR* Heparin 5,000 UNIT/ML VIAL SQ SCH ×2 (16:59→22:46)
[2017-08-16] MEDS: *HR* OxyCODONE/APAP 5/325 TABLET PO PRN ×2 (17:15→22:46)
[2017-08-16] MEDS ORDERED: Lisinopril-HCTZ 20-12.5mg TABLET PO SCH (21:00)
[2017-08-17] MEDS: traMADol 50 MG TABLET PO SCH ×3 (02:11→19:47)
[2017-08-17] MEDS: Piperacillin/Tazobactam 3.375 GM in D5% in Water (Mini-Bag+) 100 ML IVPB SCH ×3 (02:12→15:39)
[2017-08-17 06:19] LABS: Basophils # 0.1 K/mcL (0.0-0.2); Basophils % 0.8 %; Eosinophils # 0.2 K/mcL (0.0-0.6); Eosinophils % 2.6 %; Hematocrit 28.5 % (37.5-50.1); Hemoglobin 9.4 g/dL (12.9-16.9); Immature Granulocytes % 0.3 % (0-4); Lymphocytes # 0.7 K/mcL (0.6-4.6); Lymphocytes % 11.6 %; Mean Corpuscular Hemoglobin 29.1 pg (28.0-33.3); Mean Corpuscular Volume 88.2 fL (83.0-100.0); Mean Platelet Volume 9.7 fL (9.4-12.4); Monocytes # 0.6 K/mcL (0.0-1.3); Monocytes % 9.1 %; Neutrophils # 4.6 K/mcL (1.6-8.9); Platelet Count 361 K/mcL (140-400); Red Blood Count 3.23 M/mcL (4.19-5.50); Red Cell Distribution Width 12.7 % (11.5-14.5); Segmented Neutrophils % 75.6 %
[2017-08-17 06:31] LABS: BUN/Creatinine Ratio 13 (6-26); Blood Urea Nitrogen 11 mg/dL (8-26); Calcium 9.5 mg/dL (8.6-10.8); Carbon Dioxide 23 mEq/L (19-29); Chloride 90 mEq/L (98-109); Glucose 90 mg/dL (70-99); Osmolality,Calculated 255 (280-300); Potassium 4.2 mEq/L (3.5-4.5); Sodium 123 mEq/L (136-145); eGFR For African Americans > 60 (> 60); eGFR For Non-African Americans > 60 (> 60)
[2017-08-17] MEDS: *HR* Heparin 5,000 UNIT/ML VIAL SQ SCH ×2 (08:39→15:40)
[2017-08-17] MEDS: Aspirin Enteric Coated 81 MG Tablet PO SCH (08:48)
[2017-08-17] MEDS: amLODIPine 5 MG TABLET PO SCH (08:49)
[2017-08-17] MEDS: Lisinopril 20 MG TABLET PO SCH (10:28)
--- NOTE | 2017-08-17 10:59 | Internal Med Progress Note ---
Date of Encounter: 08/17/17 Time of Encounter: 10:00 - Assessment and plan (1) Wound dehiscence, surgical Current Visit: Yes Status: Acute Assessment and plan: Continue management as above with IV antibiotics. Plan for surgery tomorrow for secondary wound closure and application of wound VAC Qualifiers: Encounter type: initial encounter Qualified Code(s): T81.31XA - Disruption of external operation (surgical) wound, not elsewhere classified, initial encounter (2) Cellulitis Current Visit: Yes Status: Acute Assessment and plan: With surgical wound infection. Improving. Plan for and secondary closure tomorrow per podiatry recommendations. Continue IV Zosyn for now. Monitor vital signs. . Moderate risk for complications. Qualifiers: Site of cellulitis: extremity Site of cellulitis of extremity: lower extremity Laterality: left Qualified Code(s): L03.116 - Cellulitis of left lower limb (3) Hypertension Current Visit: Yes Status: Chronic Assessment and plan: Well-controlled. Qualifiers: Hypertension type: essential hypertension Qualified Code(s): I10 - Essential (primary) hypertension (4) Hyponatremia Current Visit: Yes Status: Chronic Assessment and plan: Sodium 123 today. Patient is on hydrochlorothiazide which can cause hyponatremia. We will stop this medication. Also add salt tablets. Continue fluid restriction (5) Smoker Current Visit: Yes Status: Chronic Assessment and plan: On nicotine patch (6) DVT prophylaxis Current Visit: Yes Status: Acute Assessment and plan: On subcutaneous heparin (7) PVD (peripheral vascular disease) Current Visit: Yes Status: Chronic Assessment and plan: Continue aspirin, Plavix. Patient is at high risk for poor wound healing - Subjective Interval history: Patient is sitting up in bed. Doing well today. Denies any pain. Erythema and swelling in his left foot are improving. Less discharge noted. - Constitutional Vitals: Temp Pulse Resp BP Pulse Ox 98.0 F 70 18 99/66 93 08/17/17 10:34 08/17/17 10:34 08/17/17 10:34 08/17/17 10:34 08/17/17 10:34 General appearance: Present: A&O X 3, pleasant, no acute distress, answers questions appropriately - Neck Neck exam general surgery: Present: supple, trachea midline. Absent: lymphadenopathy - Respiratory Respiratory exam: Present: CTAB. Absent: accessory muscle use, rales, rhonchi, wheezes - Cardiovascular Cardiovascular exam: Present: RRR, +S1, +S2. Absent: diastolic murmur, gallop, rubs, systolic murmur - GI/Abdominal GI/Abdominal exam: Present: normal bowel sounds, soft, no peritoneal signs. Absent: distended, tenderness - Extremities Exam Extremities exam: Present: warm, radial pulses palpable and symmetrical. Absent : calf tenderness, cyanotic, pedal edema Additional comments: Left foot is less erythematous with less discharge. Surgical sutures in place and eschar remains stable. - Neurological Exam Neurological exam: Present: alert, oriented X3, no focal deficits. Absent: facial droop, speech deficit Internal Medicine: Result - Labs CBC & Chem 7: 08/17/17 05:56 08/17/17 05:56 Labs: Short CBC 08/17/17 Range/Units 05:56 WBC 6.1 (4.3-11.1) K/mcL Hgb 9.4 L (12.9-16.9) g/dL Hct 28.5 L (37.5-50.1) % Plt Count 361 (140-400) K/mcL Neutrophils # 4.6 (1.6-8.9) K/mcL BMP 08/16/17 08/17/17 17:32 05:56 Sodium 125 L 123 L Potassium 4.2 Chloride 90 L Carbon Dioxide 23 BUN 11 Creatinine 0.82 Glucose 90 Calcium 9.5 - VTE Documentation of Mechanical Device: Intermittent pneumatic compression device Consult Discharge Plan - Plan Referrals: Farzad Sharp DO [Primary Care Provider] -
--- NOTE | 2017-08-17 12:38 | Podiatry Progress Note ---
Date of Encounter: 08/17/17 Time of Encounter: 12:00 - Assessment and Plan (1) PVD (peripheral vascular disease) Current Visit: Yes Status: Chronic (2) Wound dehiscence, surgical Current Visit: Yes Status: Acute Assessment: S/p partial transmetatarsal amputation involving toes #3 #4 #5 left foot on 07/[address] Talley. Necrosis of surgical wound to left foot with dehiscence. Stage 2 deep tissue pressure injury to the sacrum. Plan: Dr. Talley to take patient to surgery on 08/18/17 for secondary wound closure and application of wound vac. Will make NPO after midnight. Continue Zosyn. Wound care ordered for left foot. Hospitalist managing comorbidities. 911 emergency services dispatcher consulted. Wound care consulted for stage 2 deep tissue pressure injury to the sacrum. Qualifiers: Encounter type: initial encounter Qualified Code(s): T81.31XA - Disruption of external operation (surgical) wound, not elsewhere classified, initial encounter (3) Necrosis of surgical wound Current Visit: Yes Status: Acute Qualifiers: Encounter type: initial encounter Qualified Code(s): T81.89XA - Other complications of procedures, not elsewhere classified, initial encounter; I96 - Gangrene, not elsewhere classified; I96 - Gangrene, not elsewhere classified; I96 - Gangrene, not elsewhere classified (4) Deep tissue injury Current Visit: Yes Status: Acute Stage 2 deep tissue pressure injury to the sacrum. Wound care consulted for stage 2 deep tissue pressure injury to the sacrum. Will order Allevyn for sacrum and to be changed every 3 days or when saturated. (5) Hyponatremia Current Visit: Yes Status: Chronic Sodium 123 today. Hospitalist managing. HCTZ stopped and patient started on Salt tablets. Currently on fluid restriction. Subjective Interval history: Patient is sitting up in bed with dressing intact to left foot. No c/o fever, chills, cp or sob overnight. No c/o pain currently. Patient is aware that he will be going to surgery tomorrow for a secondary closure with the application of a wound vac to the left foot and agreeable to plan of care. Objective - Vital Signs Vital Signs: Vital Signs Temp Pulse Resp BP Pulse Ox 08/17/17 10:34 98.0 F 70 18 99/66 93 08/17/17 06:38 98.0 F 80 18 137/80 98 08/17/17 03:32 98.0 F 81 18 107/59 98 08/16/17 23:39 98.8 F 76 18 131/55 99 08/16/17 21:54 98.6 F 69 16 105/51 100 08/16/17 19:06 98.1 F 81 98 91/55 98 08/16/17 15:25 98.4 F 75 18 113/75 98 Intake and Output 08/16/17 08/17/17 08/17/17 23:59 07:59 15:59 Intake Total 400 / 400 100 / 100 100 / 100 Output Total 425 / 425 0 / 0 375 / 375 Balance -25 / -25 100 / 100 -275 / -275 Intake: IV Fluids 100 / 100 100 / 100 Zosyn 3.375 GM In Dextrose 5% ( 100 / 100 100 / 100 Minibag+) 100 ML 100 ML @ 25 mls/hr IVPB Q8HR [facility] Rx#: [id number] Oral 300 / 300 100 / 100 Output: Urine 425 / 425 0 / 0 375 / 375 Other: Meal Dinner Breakfast Percent of Meal Consumed 50% 0% Stool Size Moderate Stool Consistency loose Stool Color Brown # Bowel Movements 1 Weight 39.599 kg Patient Weight 08/17/17 23:59 Weight 39.599 kg - Exam Exam: General appearance: alert awake oriented X 3. Calm and pleasant, no acute distress. Vascular: Left:Unable to palpate pedal pulse. No evidence of cyanosis, pallor or rubor, Edema graded at 1+/4, Skin Temperature warm, No calf pain with manual compression. Musculoskeletal: Right AKA. Postop Exam: S/P Sutures intact to incision line, necrotic skin to incision line and proximal to incision line measuring 2 cm in length x 5 cm in width, malodorous. Light periwound erythema, no streaking. Superficial wound x2 dorsal aspect, proximal wound measuring 0.5 cm in length x 2 cm in width, base of wound with eschar, no periwound erythema, no pus, no streaking. Distal wound measuring 1.5 cm in length x 2.5 cm in width, base of wound pink, no pus, no periwound erythema. - Lab Result Diagrams: 08/17/17 05:56 08/17/17 05:56 Labs: Abnormal lab results RBC 3.23 M/mcL (4.19-5.50) L 08/17/17 05:56 Hgb 9.4 g/dL (12.9-16.9) L 08/17/17 05:56 Hct 28.5 % (37.5-50.1) L 08/17/17 05:56 ESR 110 mm/hr (0-10) H 08/16/17 09:17 Sodium 123 mEq/L (136-145) L 08/17/17 05:56 Chloride 90 mEq/L (98-109) L 08/17/17 05:56 Calculated Osmolality 255 (280-300) L 08/17/17 05:56 - VTE Documentation of Mechanical Device: Intermittent pneumatic compression device Consult Discharge Plan - Plan Referrals: Farzad Sharp DO [Primary Care Provider] -
[2017-08-17] MEDS: *HR* OxyCODONE/APAP 5/325 TABLET PO PRN (17:40)
--- NOTE | 2017-08-17 20:00 | Anesthesia Evaluation PreOp ---
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 History: CVA (no residual) Other Medical History: GERD, Other (chronic hyponatremia) Anesthesia History: No Prior Anesthetic Complications, Past Anesthesia (right AKA) Alcohol Use: heavy (H/O heavy EtOH use, decreased consumption 2 years ago) Drug use: none Medications and Allergies Aspirin Enteric Coated [Aspirin EC] 81 mg PO QAM 01/12/16 [History] traMADol [Ultram] 50 mg PO BID #7 tablet 02/09/16 [Rx] Carvedilol [Coreg] 25 mg PO BIDWM #30 tablet 03/17/17 [Rx] Clopidogrel [Plavix] 75 mg PO DAILY #30 tablet 03/17/17 [Rx] Amlodipine Besylate 10 mg PO DAILY 07/05/17 [History] Lisinopril-HCTZ 20-12.5 [Prinzide 20-12.5] 1 tab PO BID 07/05/17 [History] Acetaminophen [Tylenol] 650 mg PO Q6HR PRN tab 07/11/17 [Rx] OxyCODONE/APAP 5/325 [Percocet 5/325 MG] 1 each PO Q4HR PRN #20 tablet 07/11/17 [Rx] 3 Allergy/AdvReac Type Severity Reaction Status Date / Time No Known Allergies Allergy Verified 03/24/17 10:14 - Meds/Allergy Pre-op Review Medications Reviewed: Yes Allergies Reviewed: Yes Beta Blockers on Current Med List: No Anesthesia Results - Labs 08/17/17 05:56 08/17/17 05:56 - Imaging EKG: report reviewed (07/05/2017 SR) Additional studies: 01/14/2016 Echo LVEF 60% mild LV diastolic dysfunction no significant valvular dysfunction 02/28/2015 Stress Impression: Perfusion imaging was negative for ischemia or infarct. Pharmacologic ECG was negative for ischemia at the level of heart rate achieved. Patient had no chest pain with stress. Normal hemodynamic response. No arrhythmias noted with stress. Gated EF = 57%; abnormal gated septal motion. The LV is not dilated. There is no evidence of TID. Anesthesia Exam Vital Signs/O2 Sat/Glucose, Most Recent Temp Pulse Resp BP Pulse Ox 97.4 F L 85 18 88/50 99 08/17/17 18:59 08/17/17 18:59 08/17/17 18:59 08/17/17 18:59 08/17/17 18:59 Height: 5'3''/1.6 m Weight: 87 lbs/39.6 kg - HEENT Pupil (Motor): EOMI Mallampati: II Teeth: Poor dentition Oral Opening: Greater than 3 - SKIN WASHER LOC: Oriented SKIN WASHER Motor: Normal RUE, Normal LUE, Normal RLE (right AKA), Normal LLE, Normal Face SKIN WASHER Sensory: Normal: RUE, LUE, RLE (right AKA), LLE, Face - Cardiac Rhythm: Regular Murmur: None - Pulmonary Breath Sounds: bilateral Clear Respiratory Effort: Symmetrical Anesthesia Assess/Plan ASA Score: 3 Modified Herson Scale for Level of Consciousness: Cooperative, oriented, and tranquil Anesthetic Plan: MAC Monitoring Plan: Standard Monitors Recovery Plan: PACU
[2017-08-18] MEDS: *HR* Heparin 5,000 UNIT/ML VIAL SQ SCH ×4 (02:28→21:37)
[2017-08-18] MEDS: Piperacillin/Tazobactam 3.375 GM in D5% in Water (Mini-Bag+) 100 ML IVPB SCH ×4 (02:30→23:49)
[2017-08-18] MEDS: traMADol 50 MG TABLET PO SCH ×2 (07:59→21:36)
[2017-08-18] MEDS: amLODIPine 5 MG TABLET PO SCH (08:00)
[2017-08-18] MEDS: Lisinopril 20 MG TABLET PO SCH (08:00)
[2017-08-18] MEDS ORDERED: Thiamine (B-1) 100 MG TABLET PO SCH (09:00)
[2017-08-18] MEDS ORDERED: Vitamin B Complex/Vit C/Vit E 1 EACH TABLET PO SCH (09:00)
[2017-08-18] MEDS ORDERED: Folic Acid 1 MG TABLET PO SCH (09:00)
[2017-08-18] MEDS: Aspirin Enteric Coated 81 MG Tablet PO SCH (09:01)
[2017-08-18 10:45] LABS: BUN/Creatinine Ratio 13 (6-26); Blood Urea Nitrogen 12 mg/dL (8-26); Calcium 9.4 mg/dL (8.6-10.8); Carbon Dioxide 25 mEq/L (19-29); Chloride 94 mEq/L (98-109); Glucose 89 mg/dL (70-99); Osmolality,Calculated 263 (280-300); Potassium 4.3 mEq/L (3.5-4.5); Sodium 127 mEq/L (136-145); eGFR For African Americans > 60 (> 60); eGFR For Non-African Americans > 60 (> 60)
[2017-08-18] MEDS: *HR* OxyCODONE/APAP 5/325 TABLET PO PRN ×3 (11:36→23:49)
[2017-08-18] MEDS ORDERED: Lidocaine -MPF 2% 2 ML VIAL ONE (13:21)
[2017-08-18] MEDS ORDERED: *HR* Propofol 200 MG/20 ML VIAL IVP ONE ×4 (13:21→15:28)
[2017-08-18] MEDS ORDERED: *HR* FentaNYL (PF) 100 MCG/2 ML VIAL ONE (13:21)
[2017-08-18] MEDS ORDERED: Bupivacaine/Clonidine Syringe 1 EACH SYRINGE ONE (14:04)
[2017-08-18] MEDS ORDERED: Lidocaine 1% 20 ML MDV ONE (14:42)
[2017-08-18] MEDS ORDERED: Ondansetron 4 MG/2 ML VIAL ONE (14:51)
--- NOTE | 2017-08-18 14:56 | Internal Med Progress Note ---
Date of Encounter: 08/18/17 Time of Encounter: 10:20 - Assessment and plan (1) Wound dehiscence, surgical Current Visit: Yes Status: Acute Assessment and plan: Awaiting surgery due to today for secondary closure. Continue current antibiotics. Follow podiatry recommendations. Moderate risk for complications. Qualifiers: Encounter type: initial encounter Qualified Code(s): T81.31XA - Disruption of external operation (surgical) wound, not elsewhere classified, initial encounter (2) Cellulitis Current Visit: Yes Status: Acute Assessment and plan: Clinically improving. Continue IV antibiotics. Qualifiers: Site of cellulitis: extremity Site of cellulitis of extremity: lower extremity Laterality: left Qualified Code(s): L03.116 - Cellulitis of left lower limb (3) PVD (peripheral vascular disease) Current Visit: Yes Status: Chronic Assessment and plan: Continue aspirin and Plavix (4) Hypertension Current Visit: Yes Status: Chronic Assessment and plan: Well controlled. Qualifiers: Hypertension type: essential hypertension Qualified Code(s): I10 - Essential (primary) hypertension (5) Hyponatremia Current Visit: Yes Status: Chronic Assessment and plan: Improving. Continue fluid restriction and salt tablets (6) Smoker Current Visit: Yes Status: Chronic Assessment and plan: On nicotine patch (7) DVT prophylaxis Current Visit: Yes Status: Acute - Subjective Interval history: Patient is awake and alert. Awaiting surgery planned for later today. Denies any new complaints at this time. No fever or chills. - Constitutional Vitals: Temp Pulse Resp BP Pulse Ox 97.9 F 76 14 98/51 99 08/18/17 11:36 08/18/17 11:36 08/18/17 11:36 08/18/17 11:36 08/18/17 11:36 General appearance: Present: A&O X 3, pleasant, no acute distress, answers questions appropriately - Neck Neck exam general surgery: Present: supple, trachea midline. Absent: lymphadenopathy - Respiratory Respiratory exam: Present: CTAB. Absent: accessory muscle use, rales, rhonchi, wheezes - Cardiovascular Cardiovascular exam: Present: RRR, +S1, +S2. Absent: diastolic murmur, gallop, rubs, systolic murmur - GI/Abdominal GI/Abdominal exam: Present: normal bowel sounds, soft, no peritoneal signs. Absent: distended, tenderness - Extremities Exam Extremities exam: Present: warm, radial pulses palpable and symmetrical. Absent : calf tenderness, cyanotic, pedal edema Additional comments: Left foot currently bandaged. Reports no significant pain Internal Medicine: Result - Labs CBC & Chem 7: 08/17/17 05:56 08/18/17 10:25 Labs: BMP 08/18/17 10:25 Sodium 127 L Potassium 4.3 Chloride 94 L Carbon Dioxide 25 BUN 12 Creatinine 0.90 Glucose 89 Calcium 9.4 - VTE Documentation of Mechanical Device: Intermittent pneumatic compression device Consult Discharge Plan - Plan Referrals: ColFarzad yan DO [Primary Care Provider] -
[2017-08-18] MEDS ORDERED: Ringers Solution, Lactated 1,000 ML IVC SCH ×2 (16:00→16:29)
--- NOTE | 2017-08-18 16:13 | Orthopedic Operative Note ---
Date of procedure: 08/18/17 Pre-op diagnosis: Necrotic left foot with gangrene with wound dehiscence Post-op diagnosis: same Procedure: 08/18/17 16:06 #1 revision of TMA left foot #2 adjacent tissue transfer with placement of wound VAC and TLS drain left foot Implants: None Complications: None Anesthesia: MAC, local Local Anesthetics: 0.25% Sensorcaine HCL SubQ (cc), 1% Lidocaine HCL SubQ (cc) Surgeon: Skinny Talley Estimated blood loss (cc): 20 Tourniquet Time (Minutes): 0 Specimen: Necrotic tissue left foot Condition: stable Disposition: floor Procedure in Detail: 08/18/17 16:08 Details in summary of procedure: The patient was brought to the surgical suite. A sign in procedure was performed. The patient was then transferred to the surgical table and positioned probably safely securely. No tourniquet was used. The left was elevated on the foam block. The patient was sedated. The left ankle was prepped with alcohol and ankle block was carried out without difficulty or complication. The left foot was then prepped and draped in usual sterile manner. Surgical timeout was taken. Large area of necrosis, involving the distal forefoot proximally 6 cm wide and 4 cm long full-thickness. That juncture dorsal flap was developed by creating a proximal transverse incision on the dorsal flap just proximal to the line of necrosis and the plantar flap the same. These were full thickness incisions directly down to bone. That juncture was dissection was carried out the level of the periosteum metatarsals 345. After debridement of all necrotic tissue or unable to gain any kind of closure we also noticed the necrosis extended into the second toe. At that juncture decided to remove the second toe to be able to create enough tissue mobilization for coverage. At that point 2 elliptical incisions, were performed in a transverse manner Directly down to the metatarsophalangeal joint which was disarticulated. The toe was amputated and sent for gross and microscopic. We then resected metatarsal level proximal one third of the shaft from to lateral to medial.. This afforded coverage of the wound. The plantar flap was then remodeled using a #15 scalpel blade to remove redundant tissue and irregularities medially and laterally. He bleeders encountered were bovied as necessary. He was noted at the base of the second metatarsal plantarly and Surgicel was applied to control oozing. Wound was flushed with copious amounts sterile saline finding no bone chips or debris closure was uneventful using skin nataliya and interrupted sutures of 3-0 Prolene. Prior to closure a TLS drain was placed laterally. Wound VAC was then used for postoperative dressing to reduce postoperative edema and prevent hematoma as well. Patient tolerated the procedure well sent the holding room in good condition with vital signs stable as noted blood loss 20 mL.
[2017-08-18] MEDS ORDERED: Nicotine 2 MG GUM BC PRN (16:29)
[2017-08-18] MEDS ORDERED: Naloxone 0.4 MG/ML INJ IVP PRN (16:29)
[2017-08-18] MEDS ORDERED: Acetaminophen 325 MG TABLET PO PRN (16:29)
[2017-08-19] MEDS: *HR* OxyCODONE/APAP 5/325 TABLET PO PRN (03:51)
[2017-08-19] MEDS: *HR* Heparin 5,000 UNIT/ML VIAL SQ SCH ×3 (05:58→21:22)
[2017-08-19] MEDS: Piperacillin/Tazobactam 3.375 GM in D5% in Water (Mini-Bag+) 100 ML IVPB SCH ×2 (08:44→18:25)
[2017-08-19] MEDS: Thiamine (B-1) 100 MG TABLET PO SCH (08:45)
[2017-08-19] MEDS: Aspirin Enteric Coated 81 MG Tablet PO SCH (08:46)
[2017-08-19] MEDS: traMADol 50 MG TABLET PO SCH ×2 (08:46→21:23)
[2017-08-19] MEDS: Folic Acid 1 MG TABLET PO SCH (08:46)
[2017-08-19] MEDS: Vitamin B Complex/Vit C/Vit E 1 EACH TABLET PO SCH (08:46)
[2017-08-19] MEDS: amLODIPine 5 MG TABLET PO SCH (08:46)
[2017-08-19] MEDS: Lisinopril 20 MG TABLET PO SCH (08:47)
--- NOTE | 2017-08-19 14:48 | Internal Med Progress Note ---
Date of Encounter: 08/19/17 Time of Encounter: 11:00 - Assessment and plan (1) Wound dehiscence, surgical Current Visit: Yes Status: Acute Assessment and plan: Status post revision of TMA left foot with secondary wound closure. Continue current antibiotics. Await wound cultures. Podiatry following. Supportive care. Pain control. PTOT. Qualifiers: Encounter type: initial encounter Qualified Code(s): T81.31XA - Disruption of external operation (surgical) wound, not elsewhere classified, initial encounter (2) Cellulitis Current Visit: Yes Status: Acute Assessment and plan: Improving. Continue antibiotics Qualifiers: Site of cellulitis: extremity Site of cellulitis of extremity: lower extremity Laterality: left Qualified Code(s): L03.116 - Cellulitis of left lower limb (3) PVD (peripheral vascular disease) Current Visit: Yes Status: Chronic Assessment and plan: On aspirin and Plavix (4) Hypertension Current Visit: Yes Status: Chronic Assessment and plan: Blood pressure is well controlled Qualifiers: Hypertension type: essential hypertension Qualified Code(s): I10 - Essential (primary) hypertension (5) Hyponatremia Current Visit: Yes Status: Chronic Assessment and plan: Continue fluid restriction and salt tablets (6) Smoker Current Visit: Yes Status: Chronic Assessment and plan: Continue nicotine patch (7) DVT prophylaxis Current Visit: Yes Status: Acute Assessment and plan: Continue heparin subcutaneous - Subjective Interval history: Patient underwent surgery yesterday with a revision of TMA left foot and secondary wound closure. Doing well postprocedure. Pain is well controlled in his left foot. Denies any other complaints at this time. - Constitutional Vitals: Temp Pulse Resp BP Pulse Ox 98.4 F 95 16 114/68 98 08/19/17 10:08 08/19/17 10:08 08/19/17 10:08 08/19/17 10:08 08/19/17 10:08 General appearance: Present: cooperative, A&O X 3, pleasant, no acute distress, answers questions appropriately - Neck Neck exam general surgery: Present: supple, trachea midline. Absent: lymphadenopathy - Respiratory Respiratory exam: Present: CTAB. Absent: accessory muscle use, rales, rhonchi, wheezes - Cardiovascular Cardiovascular exam: Present: RRR, +S1, +S2. Absent: diastolic murmur, gallop, rubs, systolic murmur - GI/Abdominal GI/Abdominal exam: Present: normal bowel sounds, soft, no peritoneal signs. Absent: distended, tenderness - Extremities Exam Extremities exam: Present: warm, radial pulses palpable and symmetrical. Absent : calf tenderness, cyanotic, pedal edema Additional comments: Left foot bandaged with wound VAC and TLS drain in place - Neurological Exam Neurological exam: Present: alert, oriented X3, no focal deficits. Absent: facial droop, speech deficit Internal Medicine: Result - Labs CBC & Chem 7: 08/17/17 05:56 08/18/17 10:25 - VTE Documentation of Mechanical Device: Intermittent pneumatic compression device Consult Discharge Plan - Plan Referrals: ColopyFarzad DO [Primary Care Provider] -
--- NOTE | 2017-08-19 16:26 | Podiatry Progress Note ---
Date of Encounter: 08/19/17 Time of Encounter: 12:00 - Assessment and Plan (1) Critical ischemia of lower extremity Status: Ruled-out s/p #1 revision of TMA left foot #2 adjacent tissue transfer with placement of wound VAC and TLS drain left foot PLAN: wound vac removed- does not need replacement- Wet to dry saline betadine dressings daily until maceration has resolved once dressing to vac assessed and TLS drain assessed, it appears that TLS drain was slightly removed, there is a small hematoma surrounding TLS site. There is darkness noted across incision line- hematoma vs begining of ischemia- will need to monitor closely for any signs of worsening ischemia. There is a scab to dorsal aspect of foot near ankle- continue to monitor Maceration to skin which was covered by wound vac dressing- Continue TLS drain at this time- attempted replacement of drain- patent to suction- TLS vacutainer to be changed when no more than half full. NWB to LLE PT/OT evaluation for LTCF discharge back to [facility] discharge will be no sooner than tuesday Subjective Interval history: post op day #1 s/p #1 revision of TMA left foot #2 adjacent tissue transfer with placement of wound VAC and TLS drain left foot Patient sitting to side of bed. Wound vac intact. Verbalizes minimal pain. Wound vac running but without drainage to canister . Objective - Vital Signs Vital Signs: Vital Signs Temp Pulse Resp BP Pulse Ox 08/19/17 10:08 98.4 F 95 16 114/68 98 08/19/17 06:47 98.7 F 91 16 126/78 99 08/19/17 03:38 98.4 F 85 16 122/72 100 08/19/17 00:00 97.9 F 84 17 107/54 99 08/18/17 19:39 97.8 F 83 17 105/68 100 08/18/17 16:48 97.4 F L 67 14 121/74 98 Intake and Output 08/19/17 08/19/17 08/19/17 07:59 15:59 23:59 Intake Total 600 / 600 470 / 470 Output Total 700 / 700 400 / 400 Balance -100 / -100 70 / 70 Intake: IV Fluids 100 / 100 Zosyn 3.375 GM In Dextrose 5% ( 100 / 100 Minibag+) 100 ML 100 ML @ 25 mls/hr IVPB Q8HR [facility] Rx#: [id number] Oral 500 / 500 470 / 470 Output: Urine 700 / 700 400 / 400 Wound Drainage 0 / 0 Left Foot 0 / 0 Other: Meal Lunch Percent of Meal Consumed 75% Stool Size Moderate Moderate Stool Consistency loose loose Stool Color Brown Brown Blood Glucose* 107 134 - Exam Exam: Patient awake, alert and oriented x3 s/p TMA revision of left foot. PT pulses faint- cap refill <3 seconds No calf pain with manual compression Sensation to moderate touch incision line inspected and intact, without clinical signs of infection there is darkening across incision line with greatest area being to lateral edge of incision line- consistent with ecchymosis and possible small hematoma however cannot rule out the beginning of ischema due to patients hx- this will need to be monitored closely Upon inspection- on arrival TLS drain had been slightly dislodged from where it was surgically placed. There were small vacuum holes exposed limiting suction and appropriate drainage- cleansed tubing with betaine and threaded back into place- tubing and suction patent- drainage noted to vacutainer after placement There is a scab noted to plantar aspect of ankle just proximal to incision line - measuring [id number]- scab intact- however it is unclear if this was present before surgery- will monitor There is maceration noted surrounding incision line- moisture was noted under vac dressing There was no drainage to vac canister VAC removed-will leave off Will leave TLS at this time. - Lab Result Diagrams: 08/20/17 07:53 08/20/17 03:26 Labs: Abnormal lab results RBC 3.23 M/mcL (4.19-5.50) L 08/17/17 05:56 Hgb 9.4 g/dL (12.9-16.9) L 08/17/17 05:56 Hct 28.5 % (37.5-50.1) L 08/17/17 05:56 ESR 110 mm/hr (0-10) H 08/16/17 09:17 Sodium 127 mEq/L (136-145) L 08/18/17 10:25 Chloride 94 mEq/L (98-109) L 08/18/17 10:25 POC Glucose 107 (58-89) H 08/19/17 07:03 Calculated Osmolality 263 (280-300) L 08/18/17 10:25 - VTE Documentation of Mechanical Device: Intermittent pneumatic compression device Consult Discharge Plan - Plan Additional Instructions: F/u with Dr. Talley in 1 week Non weight bearing BID dressing changes with betadine/saline wet to dry Referrals: Farzad Sharp DO [Primary Care Provider] - Skinny Ortiz [Non-Partnered Physician] - Prescriptions: Oxycodone HCl/Acetaminophen [Percocet 5-325 mg Tablet] 1 each PO Q6-12H PRN #10 tablet PRN Reason: Pain Tramadol HCl [Ultram] 50 mg PO QID PRN #10 tab PRN Reason: Pain
--- NOTE | 2017-08-19 19:00 | Electrocardiograph Report ---
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
[2017-08-20] MEDS: Piperacillin/Tazobactam 3.375 GM in D5% in Water (Mini-Bag+) 100 ML IVPB SCH ×3 (00:56→16:52)
[2017-08-20 03:44] LABS: Basophils % 0.1 %; Eosinophils % 0.3 %; Hematocrit 18.6 % (37.5-50.1); Immature Granulocytes % 0.3 % (0-4); Lymphocytes % 13.8 %; Mean Corpuscular HGB Conc 32.8 g/dL (31.6-35.5); Mean Corpuscular Hemoglobin 29.2 pg (28.0-33.3); Monocytes # 0.8 K/mcL (0.0-1.3); Monocytes % 10.7 %; Neutrophils # 5.4 K/mcL (1.6-8.9); Platelet Count 288 K/mcL (140-400); Red Blood Count 2.09 M/mcL (4.19-5.50); Red Cell Distribution Width 12.8 % (11.5-14.5); Segmented Neutrophils % 74.8 %
[2017-08-20 03:46] LABS: Hemoglobin 6.1 g/dL (12.9-16.9)
[2017-08-20 03:55] LABS: BUN/Creatinine Ratio 8 (6-26); Blood Urea Nitrogen 7 mg/dL (8-26); Calcium 8.9 mg/dL (8.6-10.8); Carbon Dioxide 24 mEq/L (19-29); Chloride 94 mEq/L (98-109); Glucose 111 mg/dL (70-99); Osmolality,Calculated 261 (280-300); Potassium 3.7 mEq/L (3.5-4.5); Sodium 126 mEq/L (136-145); eGFR For African Americans > 60 (> 60); eGFR For Non-African Americans > 60 (> 60)
[2017-08-20] MEDS: *HR* Heparin 5,000 UNIT/ML VIAL SQ SCH ×2 (06:11→13:59)
[2017-08-20] MEDS: Vitamin B Complex/Vit C/Vit E 1 EACH TABLET PO SCH (07:40)
[2017-08-20] MEDS: traMADol 50 MG TABLET PO SCH (07:40)
[2017-08-20] MEDS: Thiamine (B-1) 100 MG TABLET PO SCH (07:41)
[2017-08-20] MEDS: Lisinopril 20 MG TABLET PO SCH (07:42)
[2017-08-20] MEDS: Folic Acid 1 MG TABLET PO SCH (07:42)
[2017-08-20] MEDS: Aspirin Enteric Coated 81 MG Tablet PO SCH (07:42)
[2017-08-20] MEDS: amLODIPine 5 MG TABLET PO SCH (07:42)
[2017-08-20 08:21] LABS: Hematocrit 19.2 % (37.5-50.1); Hemoglobin 6.4 g/dL (12.9-16.9)
--- NOTE | 2017-08-20 13:44 | Internal Med Progress Note ---
Date of Encounter: 08/20/17 Time of Encounter: 10:00 - Assessment and plan (1) Wound dehiscence, surgical Current Visit: Yes Status: Acute Assessment and plan: Status post revision of TMA and wound closure. Doing well postprocedure. Continue current antibiotics. Follow podiatry recommendations. Qualifiers: Encounter type: initial encounter Qualified Code(s): T81.31XA - Disruption of external operation (surgical) wound, not elsewhere classified, initial encounter (2) Cellulitis Current Visit: Yes Status: Acute Assessment and plan: Improving. Qualifiers: Site of cellulitis: extremity Site of cellulitis of extremity: lower extremity Laterality: left Qualified Code(s): L03.116 - Cellulitis of left lower limb (3) PVD (peripheral vascular disease) Current Visit: Yes Status: Chronic Assessment and plan: Continue aspirin and Plavix. (4) Hypertension Current Visit: Yes Status: Chronic Assessment and plan: Blood pressure remains well controlled Qualifiers: Hypertension type: essential hypertension Qualified Code(s): I10 - Essential (primary) hypertension (5) Hyponatremia Current Visit: Yes Status: Chronic Assessment and plan: Sodium levels remain stable. (6) Smoker Current Visit: Yes Status: Chronic (7) DVT prophylaxis Current Visit: Yes Status: Acute Assessment and plan: On subcutaneous heparin - Subjective Interval history: Patient is doing well today. No new complaints at this time. Has some pain in his left leg foot but this is well controlled. - Constitutional Vitals: Temp Pulse Resp BP Pulse Ox 97.8 F 79 14 96/61 100 08/20/17 11:39 08/20/17 11:39 08/20/17 11:39 08/20/17 11:39 08/20/17 11:39 General appearance: Present: cooperative, A&O X 3, pleasant, no acute distress, answers questions appropriately - Respiratory Respiratory exam: Present: CTAB. Absent: accessory muscle use, rales, rhonchi, wheezes - Cardiovascular Cardiovascular exam: Present: RRR, +S1, +S2. Absent: diastolic murmur, gallop, rubs, systolic murmur - GI/Abdominal GI/Abdominal exam: Present: normal bowel sounds, soft, no peritoneal signs. Absent: distended, tenderness - Extremities Exam Extremities exam: Present: warm, radial pulses palpable and symmetrical. Absent : calf tenderness, cyanotic, pedal edema Additional comments: Left foot bandaged. TLS drain has now been removed. Wound VAC is also been disconnected at this time. Internal Medicine: Result - Labs CBC & Chem 7: 08/20/17 07:53 08/20/17 03:26 Labs: Short CBC 08/20/17 08/20/17 Range/Units 03:26 07:53 WBC 7.3 (4.3-11.1) K/mcL Hgb 6.1 L D 6.4 L (12.9-16.9) g/dL Hct 18.6 L 19.2 L (37.5-50.1) % Plt Count 288 (140-400) K/mcL Neutrophils # 5.4 (1.6-8.9) K/mcL BMP 08/20/17 03:26 Sodium 126 L Potassium 3.7 Chloride 94 L Carbon Dioxide 24 BUN 7 L Creatinine 0.83 Glucose 111 H Calcium 8.9 - VTE Documentation of Mechanical Device: Intermittent pneumatic compression device Consult Discharge Plan - Plan Referrals: Farzad Sharp DO [Primary Care Provider] -
[2017-08-20 15:18] VITALS: BP 93/52
--- NOTE | 2017-08-20 17:43 | Discharge Summary ---
Date of Encounter: 08/20/17 Time of Encounter: 17:41 - Discharge Diagnosis (1) Wound infection Priority: Primary Status: Acute - Discharge Medications Home Medications: Aspirin Enteric Coated [Aspirin EC] 81 mg PO QAM 01/12/16 [History] traMADol [Ultram] 50 mg PO BID #7 tablet 02/09/16 [Rx] Carvedilol [Coreg] 25 mg PO BIDWM #30 tablet 03/17/17 [Rx] Clopidogrel [Plavix] 75 mg PO DAILY #30 tablet 03/17/17 [Rx] Amlodipine Besylate 10 mg PO DAILY 07/05/17 [History] Lisinopril-HCTZ 20-12.5 [Prinzide 20-12.5] 1 tab PO BID 07/05/17 [History] Acetaminophen [Tylenol] 650 mg PO Q6HR PRN tab 07/11/17 [Rx] OxyCODONE/APAP 5/325 [Percocet 5/325 MG] 1 each PO Q4HR PRN #20 tablet 07/11/17 [Rx] Allergies/Adverse Reactions: 3 Allergy/AdvReac Type Severity Reaction Status Date / Time No Known Allergies Allergy Verified 03/24/17 10:14 Procedures and tests throughout hospitalization: Patient had operative procedure and will be discharged. See operative note for details. Labs on day of discharge: Labs from last 24 hours 08/20/17 08/20/17 08/20/17 16:58 11:43 08:04 WBC RBC Hgb Hct MCV MCH MCHC RDW Plt Count MPV Immature Gran % Seg Neutrophils % Lymphocytes % Monocytes % Eosinophils % Basophils % Neutrophils # Lymphocytes # Monocytes # Eosinophils # Basophils # Sodium Potassium Chloride Carbon Dioxide BUN Creatinine Est GFR ( Amer) Est GFR (Non-Af Amer) BUN/Creatinine Ratio Glucose POC Glucose 129 H 120 H 113 H Calculated Osmolality Calcium 08/20/17 08/20/17 08/20/17 07:53 03:26 03:26 WBC 7.3 RBC 2.09 L Hgb 6.4 L 6.1 L D Hct 19.2 L 18.6 L MCV 89.0 MCH 29.2 MCHC 32.8 RDW 12.8 Plt Count 288 MPV 10.0 Immature Gran % 0.3 Seg Neutrophils % 74.8 Lymphocytes % 13.8 Monocytes % 10.7 Eosinophils % 0.3 Basophils % 0.1 Neutrophils # 5.4 Lymphocytes # 1.0 Monocytes # 0.8 Eosinophils # 0.0 Basophils # 0.0 Sodium 126 L Potassium 3.7 Chloride 94 L Carbon Dioxide 24 BUN 7 L Creatinine 0.83 Est GFR ( Amer) > 60 Est GFR (Non-Af Amer) > 60 BUN/Creatinine Ratio 8 Glucose 111 H POC Glucose Calculated Osmolality 261 L Calcium 8.9 08/19/17 21:21 WBC RBC Hgb Hct MCV MCH MCHC RDW Plt Count MPV Immature Gran % Seg Neutrophils % Lymphocytes % Monocytes % Eosinophils % Basophils % Neutrophils # Lymphocytes # Monocytes # Eosinophils # Basophils # Sodium Potassium Chloride Carbon Dioxide BUN Creatinine Est GFR ( Amer) Est GFR (Non-Af Amer) BUN/Creatinine Ratio Glucose POC Glucose 132 H Calculated Osmolality Calcium - Impressions ITS Impressions Foot X-Ray 08/16/17 09:03 IMPRESSION: 1. 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 2. Marked osteopenia. 3. Soft tissue prominence in the region of the stump and forefoot, which is increased from the prior exam. 4. No evidence of subcutaneous emphysema. D/ / Willard Lloyd MD / Willard Lloyd MD Interpreting Provider: Willard Lloyd MD Date of admission: 08/17/17 18:21 Primary care physician: Farzad Sharp Consults: 08/16/17 09:03 Consult to Hospitalist [CONS] Routine Consulting Provider: Aye Wan Reason for Consult: Managemet of cardiovascular disease and comorbidities Time Notified: 09:04 Call Completed: Yes 08/16/17 09:13 Consult to Forest Engineer [CONS] Routine Reason for SW Consult: [facility] 08/16/17 16:06 Consult to Wound Care [CONS] Routine Reason for Consult: Deep tissue pressure injury to the sacrum, stage 2. Time Notified: 16:08 Call Completed: Yes 08/18/17 19:58 Consult to Physical Therapy [CONS] Routine Comment: Evaluate, develop and implement POC Reason for Consult: Post surgical evaluation 08/18/17 20:01 Consult to Occupational Therapy [CONS] Routine Comment: Evaluate, develop and implement POC Reason for Consult: Post surgical evaluation 08/19/17 16:26 Consult to Occupational Therapy [CONS] Routine Comment: Evaluate, develop and implement POC Reason for Consult: Evaluation, NWB to LLE, placement to ECF Consult to Physical Therapy [CONS] Routine Comment: Evaluate, develop and implement POC Reason for Consult: Evaluation, NWB to LLE, placement to ECF Discharging clinician: Fer Napoles Anticipated date of discharge: 08/20/17 - Patient Status Disposition: Transfer SNF Condition: Good Functional capacity at discharge: wheelchair bound Overall status at discharge: patient is progressing back to baseline - Discharge Instructions Follow Up With: Farzad Sharp DO [Primary Care Provider] - Skinny Ortiz [Non-Partnered Physician] - - Diet and Activity Activity: other Diet: diabetic diet - Hospital Course Hospital course: Mr. Ramirez is a 52 year old male - Time Spent with Patient Total time spent providing and/or coordinating discharge services: - VTE Documentation of Mechanical Device: Intermittent pneumatic compression device
[2017-08-20] MEDS: *HR* OxyCODONE/APAP 5/325 TABLET PO PRN (17:46)
--- NOTE | 2017-08-20 17:47 | Physician Discharge Referral ---
ExtendedCare Referral Info Transfer To: [facility] Provider in Charge after Transfer: PCP Institutional Level of Care: Skilled - Diagnosis (1) Wound infection Status: Acute (2) Osteomyelitis of foot Status: Acute Expected Duration of Placement: 4 weeks Prognosis: Good Aware of Diagnosis: Patient Aware of Prognosis: Patient - Transfer Medications Home Medications: Aspirin Enteric Coated [Aspirin EC] 81 mg PO QAM 01/12/16 [History] traMADol [Ultram] 50 mg PO BID #7 tablet 02/09/16 [Rx] Carvedilol [Coreg] 25 mg PO BIDWM #30 tablet 03/17/17 [Rx] Clopidogrel [Plavix] 75 mg PO DAILY #30 tablet 03/17/17 [Rx] Amlodipine Besylate 10 mg PO DAILY 07/05/17 [History] Lisinopril-HCTZ 20-12.5 [Prinzide 20-12.5] 1 tab PO BID 07/05/17 [History] Acetaminophen [Tylenol] 650 mg PO Q6HR PRN tab 07/11/17 [Rx] OxyCODONE/APAP 5/325 [Percocet 5/325 MG] 1 each PO Q4HR PRN #20 tablet 07/11/17 [Rx] Allergies/Adverse Reactions: 3 Allergy/AdvReac Type Severity Reaction Status Date / Time No Known Allergies Allergy Verified 03/24/17 10:14 - Respiratory Orders Smoking Cessation: Smoking cessation has been advised. For more information, call the [place] Tobacco Quit Line at 7-266-ZAUN-NOW. - Lab Orders Lab Orders: CBC - Advance Directives Living Will: No Power of Biometrics Head: No Code Status: Full Code - Mobility Orders Chair - Rehabiliation Orders Rehab Potential: Good Rehab Orders: Evaluation for Physical Therapy, Evaluation for Occupational Therapy - Treatments List/Other: Dressing changes, betadine wet to dry daily. Follow up in one week with Skinny Talley. CERTIFICATION: I certify that the transfer of the above named patient to an Extended Care Facility is necessary for the continuing treatment of the diagnosis listed. The above information is true and accurate reflection of patient's current condition. Confidential - Redisclosure prohibited without a patient's written consent.
== END 2017-08-20 19:30 | DRG 791 ==
LOC: 3NENU
PROVIDERS: ADMIT Podiatrist Foot Surgery; ATTEND Podiatrist Foot Surgery

== ENCOUNTER 2017-08-25 10:11 | Inpatient (IN) ==
--- NOTE | 2017-08-25 11:29 | Vascular/Endovascular H&P ---
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 He has been admitted due to intractable pain and emerging cellulitis. His wound has progressed since his office visit yesterday. Given these findings he will need intravenous pain control, intravenous antibiotics and urgent left above knee amputation to reduce his risk of sepsis and . The risks, benefits and alternatives of the procedure were discussed with the patient and all questions were answered. (2) Essential hypertension Current Visit: Yes Status: Acute (3) Cellulitis and abscess of foot Current Visit: Yes Status: Acute Cellulitis notedon the left foot, no evidence of abscess. (4) Tobacco abuse Current Visit: No Status: Chronic He was counseled regarding smoking cessation. (5) Chronic anemia Current Visit: No Status: Chronic The patient has chronic anemia. His hgb is currently pending. He may require blood transfusion during this hospitalization. (6) Moderate protein malnutrition Current Visit: Yes Status: Acute (7) Chronic hyponatremia Current Visit: Yes Status: Acute (8) Chronic hyponatremia Current Visit: No Status: Chronic History of Present Illness Chief complaint: peripheral vascular disease with gangrene, cellulitis HPI: Mr. Ramirez is a 52 year old male with an extensive history of peripheral vascular disease with ulceration. The patient has previously undergone a left femoral to popliteal artery bypass for nonhealing ulceration. Despite the revascularization, he had progressive ulceration. He then underwent partial amputation by Dr. Talley which also did not heal and then underwent a more proximal revision of his forefoot amputation. This revision also did not heal. The patient has now developed progressive and intractable pain in the extremity with tenderness. He was seen in the office yesterday and reports worsening symptoms today. He denies any fevers or chills. He denies chest pain or shortness of breath. Past Med Surg Social Fam HX - Past Medical History Medical history: hyperlipidemia, hypertension, myocardial infarction, peripheral artery disease Psychiatric history: no psych history - Past Surgical History Surgical History: cataract, LE stent(s), vascular surgery, other - Social History Smoking Status: Current every day smoker Smokeless Tobacco Status: No Alcohol use: heavy Drug use: none - Family History Father Adopted: No Family Member Ethnicity: Non- Living Status: Still Living Hx Family Cardiac Disorders: Yes (HTN) Hx Family Cancer: Yes (LUNG CANCER) Mother Adopted: No Living Status: Hx Family Cardiac Disorders: Yes (hypertension) Hx Family Respiratory Disorders: No Hx Family Cancer: No Hx Family GI Disorders: No Hx Family Endocrine Disorder: No Hx Family Neuromuscular Disorders: No Hx Family Neurologic Disorders: No Hx Family HEENT Disorders: No Hx Family Autoimmune Disorders: No Medications and Allergies Aspirin Enteric Coated [Aspirin EC] 81 mg PO QAM 01/12/16 [History] Carvedilol [Coreg] 25 mg PO BIDWM #30 tablet 03/17/17 [Rx] Clopidogrel [Plavix] 75 mg PO DAILY #30 tablet 03/17/17 [Rx] Amlodipine Besylate 10 mg PO DAILY 07/05/17 [History] Lisinopril-HCTZ 20-12.5 [Prinzide 20-12.5] 1 tab PO BID 07/05/17 [History] Acetaminophen [Tylenol] 650 mg PO Q6HR PRN tab 07/11/17 [Rx] ALPRAZolam [Xanax 0.5 MG Tablet] 0.5 mg PO TID PRN 08/25/17 [History] OxyCODONE/APAP 5/325 [Percocet 5/325 MG] 1 each PO Q4HR PRN 08/25/17 [History] traMADol [Ultram] 50 mg PO QID 08/25/17 [History] 3 Allergy/AdvReac Type Severity Reaction Status Date / Time No Known Allergies Allergy Verified 03/24/17 10:14 All Systems Review: A 10-system review of systems was performed and is negative for pertinent findings except as documented above in the HPI. Exam Vital Signs, Last 4 Hours Temp Pulse Resp BP Pulse Ox 08/25/17 10:32 99.0 F 85 16 119/47 98 General: Present: Conversant HEENT: Present: Pupils equal Neck: Absent: JVD, Lymphadenopathy Cardiac: Present: Reg Rate and Rhythm Lungs: Present: Normal Breath Sounds, No Wheeze, Rales, Rhonchi Neuro: Present: Alert and responsive, No focal deficits noted, Motor nerves grossly intact, Sensory nerves grossly intact Abdomen: Present: Soft, Non-tender Vascular: Present: Capillary refill delayed (left foot), Pulse, absent (left dorsal pedal and posterior tibial signals absent), Cyanosis (left forefoot), Edema (trace edema left leg), Color/Temperature (left foot cool to touch), Other Skin: Present: Wound/ulcer(s) (left forefoot gangrenous changes with surrounding cellulitis, no fluctuance or purulence)
[2017-08-25] MEDS ORDERED: 0.9 % Sodium Chloride 1,000 ML IVC SCH (11:45)
[2017-08-25 11:58] LABS: INR 1.4; Prothrombin Time 15.3 Seconds (9.4-12.1)
[2017-08-25 12:01] LABS: Activated Partial Thrombo Time 36.7 Seconds (26.0-36.0)
[2017-08-25] MEDS ORDERED: Vancomycin 1,000 MG in D5% in Water 250 ML IVPB ONE (12:31)
[2017-08-25] MEDS ORDERED: *HR* Morphine 2 MG/ML SYRINGE IVP PRN (12:33)
[2017-08-25 12:45] LABS: Basophils % 0.3 %; Eosinophils # 0.1 K/mcL (0.0-0.6); Eosinophils % 0.5 %; Hematocrit 24.6 % (37.5-50.1); Immature Granulocytes % 0.5 % (0-4); Lymphocytes # 0.7 K/mcL (0.6-4.6); Lymphocytes % 6.1 %; Mean Corpuscular HGB Conc 32.9 g/dL (31.6-35.5); Mean Corpuscular Hemoglobin 29.3 pg (28.0-33.3); Mean Corpuscular Volume 89.1 fL (83.0-100.0); Mean Platelet Volume 10.1 fL (9.4-12.4); Monocytes # 0.8 K/mcL (0.0-1.3); Monocytes % 7.3 %; Platelet Count 559 K/mcL (140-400); Red Blood Count 2.76 M/mcL (4.19-5.50); Red Cell Distribution Width 13.8 % (11.5-14.5); Segmented Neutrophils % 85.3 %
[2017-08-25 12:52] LABS: Hemoglobin 8.1 g/dL (12.9-16.9); Neutrophils # 9.8 K/mcL (1.6-8.9)
[2017-08-25 12:53] LABS: BUN/Creatinine Ratio 13 (6-26); Blood Urea Nitrogen 11 mg/dL (8-26); Carbon Dioxide 23 mEq/L (19-29); Chloride 93 mEq/L (98-109); Glucose 89 mg/dL (70-99); Osmolality,Calculated 265 (280-300); Potassium 3.9 mEq/L (3.5-4.5); Sodium 128 mEq/L (136-145); eGFR For African Americans > 60 (> 60); eGFR For Non-African Americans > 60 (> 60)
[2017-08-25] MEDS: Piperacillin/Tazobactam 3.375 GM in D5% in Water (Mini-Bag+) 100 ML IVPB SCH ×3 (13:15→21:21)
[2017-08-25] MEDS ORDERED: Vancomycin 500 MG in D5% in Water (Mini-Bag+) 100 ML IVPB ONE (13:50)
--- NOTE | 2017-08-25 15:41 | Anesthesia Evaluation PreOp ---
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: Denies Any Significant HX Other Medical History: Other (alchol abuse, chronic anemia, chronic hyponatremia , malnutrition) Anesthesia History: No Prior Anesthetic Complications, Past Anesthesia (left TMA , LLE BPG) Alcohol Use: heavy Drug use: none Medications and Allergies Aspirin Enteric Coated [Aspirin EC] 81 mg PO QAM 01/12/16 [History] Carvedilol [Coreg] 25 mg PO BIDWM #30 tablet 03/17/17 [Rx] Clopidogrel [Plavix] 75 mg PO DAILY #30 tablet 03/17/17 [Rx] Amlodipine Besylate 10 mg PO DAILY 07/05/17 [History] Lisinopril-HCTZ 20-12.5 [Prinzide 20-12.5] 1 tab PO BID 07/05/17 [History] Acetaminophen [Tylenol] 650 mg PO Q6HR PRN tab 07/11/17 [Rx] ALPRAZolam [Xanax 0.5 MG Tablet] 0.5 mg PO TID PRN 08/25/17 [History] OxyCODONE/APAP 5/325 [Percocet 5/325 MG] 1 each PO Q4HR PRN 08/25/17 [History] traMADol [Ultram] 50 mg PO QID 08/25/17 [History] 3 Allergy/AdvReac Type Severity Reaction Status Date / Time No Known Allergies Allergy Verified 03/24/17 10:14 - Meds/Allergy Pre-op Review Medications Reviewed: Yes Allergies Reviewed: Yes Beta Blockers on Current Med List: No Anesthesia Results - Labs 08/25/17 11:31 08/25/17 11:31 - Imaging EKG: report reviewed (SINUS RHYTHM BASELINE ARTIFACT) Additional studies: Echo 01/27 shows EF60%, mild LV dysfunction Stress test negative 02/26 Anesthesia Exam Selected Entries 08/25/17 10:32 08/25/17 11:10 Temperature 99.0 F Pulse Rate 85 Pulse Rhythm Regular Respiratory Rate 16 Blood Pressure 119/47 O2 Sat by Pulse Oximetry 98 Oxygen Delivery Method Room Air Weight: 36kg - HEENT Pupil (Motor): EOMI Mallampati: II Teeth: Normal Oral Opening: Greater than 3 - CARDROOM SUPERVISOR LOC: Oriented CARDROOM SUPERVISOR Motor: Normal RUE, Normal LUE, Normal RLE, Normal LLE, Normal Face CARDROOM SUPERVISOR Sensory: Normal: RUE, LUE, RLE, LLE, Face - Cardiac Rhythm: Regular Murmur: None - Pulmonary Breath Sounds: bilateral Clear Respiratory Effort: Symmetrical Anesthesia Assess/Plan ASA Score: 3 Modified Herson Scale for Level of Consciousness: Cooperative, oriented, and tranquil Anesthetic Plan: General Monitoring Plan: Standard Monitors Recovery Plan: PACU (discussed risks of GA, agrees to proceed)
[2017-08-25] MEDS ORDERED: Vancomycin 1,000 MG VIAL ONE (15:46)
[2017-08-25] MEDS ORDERED: *HR* FentaNYL (PF) 100 MCG/2 ML VIAL ONE ×2 (15:54→16:31)
[2017-08-25] MEDS ORDERED: *HR* Propofol 200 MG/20 ML VIAL IVP ONE (15:54)
[2017-08-25] MEDS ORDERED: *HR* Midazolam HCl 2 MG/2 ML VIAL ONE (15:54)
[2017-08-25] MEDS ORDERED: Ondansetron 4 MG/2 ML VIAL IVP PRN ×2 (16:24→18:13)
[2017-08-25] MEDS ORDERED: *HR* HYDROmorphone (PF) 1 MG/ML SYRINGE IVP PRN (16:24)
[2017-08-25] MEDS ORDERED: Lidocaine -MPF 4% 5 ML AMPUL ONE (16:31)
[2017-08-25] MEDS ORDERED: *HR* Phenylephrine 10 MG/ML VIAL ONE (16:31)
[2017-08-25] MEDS ORDERED: *HR* Succinylcholine 200 MG/10 ML VIAL IVP ONE (16:31)
[2017-08-25] MEDS ORDERED: Lidocaine -MPF 2% 2 ML VIAL ONE (16:31)
[2017-08-25] MEDS ORDERED: *HR* HYDROmorphone 2 MG/ML SYRINGE ONE (17:21)
--- NOTE | 2017-08-25 17:38 | Operative Note ---
Date of procedure: 08/25/17 Pre-op diagnosis: peripheral vascular disease with gangrene Post-op diagnosis: same Procedure: Left above knee amputation. Complications: None Anesthesia: GETA Surgeon: Nik Trujillo Estimated blood loss (cc): 250 Specimen: Left lower extremity Condition: stable Disposition: PACU Procedure in Detail: Indications: The patient is a 52 year old male with progressive left foot ulceration and gangrene despite revascularization. He underwent partial left foot amputation which did not heal. He then underwent a revision which also did not heal. A left above knee amputation was then recommended. He expressed understanding and was agreeable to proceeding. Procedure: The patient was identified in the holding area. The risks, benefits and alternatives were discussed and all questions were answered. The patient was taken to the operating room and placed in the supine position on the operating room table. After the induction of general endotracheal anesthesia, the patient was cleaned and draped in the normal sterile fashion. The skin was demarcated along the left thigh witha standard incision. The skin was incised with a #15 blade. The saphenous vein was identfied, ligated with 2- 0 silk suture and divided. Using a process of blunt, sharp and electrocautery dissection, the muscle fascia was traversed. The neurovascular bundle and graft were identified, clamped and divided. The periosteum was elevated off of the femur. Using a powered saw, the femur was transected. The artery and vein were then suture ligated with 0 silk suture ligature twice. The nerve was grasped and transected as high as possible. The wound was irrigated. Meticulous hemostasis was obtained through out the wound with electrocautery. The fascial layers were reapproximated with Vicryl surture. Skin was reapproximated with nataliya. A sterile dressing was applied. The patient was extubated and taken to the recovery room in stable condition.
[2017-08-25] MEDS ORDERED: *HR* Heparin 5,000 UNIT/ML VIAL SQ SCH (18:00)
--- NOTE | 2017-08-25 18:10 | Anesthesia Evaluation Post Op ---
Date of Encounter: 08/25/17 Time of Encounter: 18:09 - Vital Signs Vital Signs: Selected Entries 08/25/17 18:04 Temperature 98.7 F Pulse Rate 85 Respiratory Rate 20 Blood Pressure 124/78 O2 Sat by Pulse Oximetry 96 - Airway Airway: Non-obstructed - Cardiovascular Regular Rate - Mental Status Mental Status: Sedated (aroses with calling his name) - Pain Pain Scale: 0 Pain Scale used: Numeric (1 - 10) - Nausea Vomiting Nausea Vomiting: Not Present - Hydration Hydration: Ice chips, Has not voided - Discharge PostOp Status: Transfer Patient to floor
[2017-08-25] MEDS ORDERED: ALPRAZolam 0.5 MG TABLET PO PRN (18:13)
[2017-08-25] MEDS ORDERED: Acetaminophen 325 MG TABLET PO PRN ×2 (18:13)
[2017-08-25] MEDS ORDERED: *HR* Labetalol 20 MG/4 ML SYRINGE IVP PRN (18:13)
[2017-08-25] MEDS ORDERED: Naloxone 0.4 MG/ML INJ IVP PRN (18:13)
[2017-08-25] MEDS ORDERED: *HR* Heparin 5,000 UNIT/ML VIAL ONE (18:29)
[2017-08-25] MEDS: *HR* Heparin 5,000 UNIT/ML VIAL SQ SCH (18:55)
[2017-08-25] MEDS: 0.9 % Sodium Chloride 1,000 ML IVC SCH (18:55)
[2017-08-25] MEDS: *HR* Morphine 2 MG/ML SYRINGE IVP PRN ×3 (19:29→23:40)
[2017-08-25] MEDS: Lisinopril-HCTZ 20-12.5mg TABLET PO SCH (23:40)
[2017-08-26] MEDS: *HR* OxyCODONE Immed Rel 5 MG TABLET PO PRN (03:34)
[2017-08-26 04:16] LABS: Basophils % 0.1 %; Hematocrit 21.4 % (37.5-50.1); Hemoglobin 7.2 g/dL (12.9-16.9); Immature Granulocytes % 0.7 % (0-4); Lymphocytes # 0.5 K/mcL (0.6-4.6); Lymphocytes % 4.4 %; Mean Corpuscular HGB Conc 33.6 g/dL (31.6-35.5); Mean Corpuscular Hemoglobin 29.5 pg (28.0-33.3); Mean Corpuscular Volume 87.7 fL (83.0-100.0); Mean Platelet Volume 10.1 fL (9.4-12.4); Monocytes # 0.5 K/mcL (0.0-1.3); Monocytes % 4.2 %; Neutrophils # 10.2 K/mcL (1.6-8.9); Platelet Count 536 K/mcL (140-400); Red Blood Count 2.44 M/mcL (4.19-5.50); Red Cell Distribution Width 13.6 % (11.5-14.5); Segmented Neutrophils % 90.6 %
[2017-08-26 04:19] LABS: BUN/Creatinine Ratio 14 (6-26); Blood Urea Nitrogen 10 mg/dL (8-26); Calcium 9.2 mg/dL (8.6-10.8); Carbon Dioxide 22 mEq/L (19-29); Chloride 94 mEq/L (98-109); Glucose 137 mg/dL (70-99); Osmolality,Calculated 265 (280-300); Potassium 4.3 mEq/L (3.5-4.5); Sodium 127 mEq/L (136-145); eGFR For African Americans > 60 (> 60); eGFR For Non-African Americans > 60 (> 60)
[2017-08-26] MEDS: Piperacillin/Tazobactam 3.375 GM in D5% in Water (Mini-Bag+) 100 ML IVPB SCH ×2 (06:06→14:56)
[2017-08-26] MEDS: *HR* Heparin 5,000 UNIT/ML VIAL SQ SCH ×2 (06:06→17:17)
[2017-08-26] MEDS: amLODIPine 5 MG TABLET PO SCH (07:56)
[2017-08-26] MEDS: Lisinopril-HCTZ 20-12.5mg TABLET PO SCH ×2 (08:01→21:44)
[2017-08-26] MEDS: Aspirin Enteric Coated 81 MG Tablet PO SCH (08:22)
[2017-08-26] MEDS: *HR* OxyCODONE/APAP 5/325 TABLET PO PRN ×3 (13:38→22:00)
[2017-08-26] MEDS: 0.9 % Sodium Chloride 1,000 ML IVC SCH ×2 (16:06→23:17)
--- NOTE | 2017-08-26 17:07 | Vascular/Endovas Progress Note ---
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 He is hemodynamically stable and reports adequate pain control. PT/OT consult ordered. Discharge in 24-72 hours anticipated. (2) Essential hypertension Current Visit: Yes Status: Chronic (3) Cellulitis and abscess of foot Current Visit: Yes Status: Chronic Deandre discontinue antibiotics as left lower extremity has now been amputated. (4) Tobacco abuse Current Visit: No Status: Chronic He was counseled regarding smoking cessation. (5) Chronic anemia Current Visit: No Status: Chronic The patient has chronic anemia. His hemoglobin is 7.2 today. He is hemodynamically stable without evidence of ongoing blood loss. Will recheck hemoglobin tomorrow. (6) Moderate protein malnutrition Current Visit: Yes Status: Acute (7) Chronic hyponatremia Current Visit: No Status: Chronic - Subjective Interval history: The patient reports adequate pain control. He denies chest pain or shortness of breath. Vital Signs, Last 4 Hours Temp Pulse Resp BP Pulse Ox 08/26/17 15:39 98.5 F 86 17 108/44 97 - Physical Examination General: Present: Conversant, No Apparent Distress Cardiac: Present: Reg Rate and Rhythm Lungs: Present: Normal Breath Sounds Neuro: Present: Alert and responsive Vascular: Present: Surgical incisions (bandage dry) Abdomen: Present: Soft Results 08/26/17 03:56 08/26/17 03:56 Lab Results, Last 24 hours 08/26/17 08/26/17 03:56 03:56 WBC 11.3 H Hgb 7.2 L Hct 21.4 L Plt Count 536 H Sodium 127 L Potassium 4.3 Chloride 94 L Carbon Dioxide 22 BUN 10 Creatinine 0.72 Glucose 137 H Calcium 9.2 Consult Discharge Plan - Plan Referrals: René Ruiz MD [Primary Care Provider] -
--- NOTE | 2017-08-26 17:20 | Discharge Summary ---
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 His wound is healing well and his pain is controlled. He will be discharged today. (2) Essential hypertension Priority: Secondary Status: Chronic Comments: He was counseled regarding atherosclerotic risk factor reduction. (3) Cellulitis and abscess of foot Priority: Secondary Status: Chronic (4) Tobacco abuse Priority: Secondary Status: Chronic Comments: He was counseled regarding smoking cessation. (5) Chronic anemia Priority: Secondary Status: Chronic (6) Moderate protein malnutrition Priority: Secondary Status: Chronic (7) Chronic hyponatremia Priority: Secondary Status: Chronic - Discharge Medications Home Medications: Aspirin Enteric Coated [Aspirin EC] 81 mg PO QAM 01/12/16 [History] Carvedilol [Coreg] 25 mg PO BIDWM #30 tablet 03/17/17 [Rx] Clopidogrel [Plavix] 75 mg PO DAILY #30 tablet 03/17/17 [Rx] Amlodipine Besylate 10 mg PO DAILY 07/05/17 [History] Lisinopril-HCTZ 20-12.5 [Prinzide 20-12.5] 1 tab PO BID 07/05/17 [History] Acetaminophen [Tylenol] 650 mg PO Q6HR PRN tab 07/11/17 [Rx] ALPRAZolam [Xanax 0.5 MG Tablet] 0.5 mg PO TID PRN 08/25/17 [History] OxyCODONE/APAP 5/325 [Percocet 5/325 MG] 1 each PO Q4HR PRN 08/25/17 [History] traMADol [Ultram] 50 mg PO QID 08/25/17 [History] Allergies/Adverse Reactions: 3 Allergy/AdvReac Type Severity Reaction Status Date / Time No Known Allergies Allergy Verified 03/24/17 10:14 Date of admission: 08/25/17 10:15 Primary care physician: René Ruiz MD Consults: 08/25/17 11:04 Consult to Epic Professional [CONS] Routine Reason for SW Consult: Patient resides at [facility] planned for 08/2508/26/17 07:12 Consult to Physical Therapy [CONS] Routine Comment: Evaluate, develop and implement POC Reason for Consult: left aka, from [facility] OT [Consult to Occupational Therapy] [CONS] Routine Comment: Evaluate, develop and implement POC Reason for Consult: left aka, from [facility] Procedure(s) Performed: Left above knee amputation. Discharging clinician: Nik Trujillo Anticipated date of discharge: 08/29/17 - Patient Status Disposition: Transfer SNF Condition: Good Overall status at discharge: patient is back to baseline - Discharge Instructions Instructions: Above the Knee Amputation (DC) Follow Up With: René Ruiz MD [Primary Care Provider] - Nik Trujillo MD [Partnered Physician] - (DR. MIX OFFICE SHOULD CALL WITH A FOLLOW UP APPOINTMENT. ) - Diet and Activity Activity: as per physical therapy Diet: advance to your usual diet - Hospital Course Hospital course: Mr. Ramirez is a 52 year old male with multiple medical comrobidities who was admitted to [facility] on 08/25/17 for progressive limb ischemia with ulceration and gangrenous changes. He underwent a left above knee amputation and tolerated the procedure well. He has chronic anemia and required 2u PRBCs while hospitalized. He remained hemodynamically stable without evidence of ongoing blood loss. He was evaluated by PT/OT. His pain was well controlled. [facility] in stable condition without complication. Time spent discussing smoking cessation with patient: 3 to 10 minutes - Time Spent with Patient Total time spent providing and/or coordinating discharge services: Exam Vital Signs, Last 4 Hours Temp Pulse Resp BP Pulse Ox 08/26/17 15:39 98.5 F 86 17 108/44 97 General: Present: Conversant HEENT: Present: Pupils equal Cardiac: Present: Reg Rate and Rhythm Lungs: Present: Normal Breath Sounds Abdomen: Present: Soft Vascular: Present: Surgical incisions (Incision is clean, dry and intat without erythema or drainage. )
[2017-08-27] MEDS: *HR* OxyCODONE Immed Rel 5 MG TABLET PO PRN ×2 (01:50→08:40)
[2017-08-27 02:54] LABS: Basophils % 0.1 %; Eosinophils % 0.4 %; Hematocrit 18.6 % (37.5-50.1); Hemoglobin 6.1 g/dL (12.9-16.9); Immature Granulocytes % 0.4 % (0-4); Lymphocytes # 1.4 K/mcL (0.6-4.6); Lymphocytes % 19.5 %; Mean Corpuscular HGB Conc 32.8 g/dL (31.6-35.5); Mean Corpuscular Hemoglobin 29.2 pg (28.0-33.3); Mean Platelet Volume 9.5 fL (9.4-12.4); Monocytes # 0.7 K/mcL (0.0-1.3); Monocytes % 8.9 %; Neutrophils # 5.1 K/mcL (1.6-8.9); Platelet Count 449 K/mcL (140-400); Red Blood Count 2.09 M/mcL (4.19-5.50); Red Cell Distribution Width 13.7 % (11.5-14.5); Segmented Neutrophils % 70.7 %
[2017-08-27] MEDS: *HR* OxyCODONE/APAP 5/325 TABLET PO PRN ×4 (05:20→21:42)
[2017-08-27] MEDS: *HR* Heparin 5,000 UNIT/ML VIAL SQ SCH ×2 (05:20→17:21)
[2017-08-27] MEDS: amLODIPine 5 MG TABLET PO SCH (08:00)
[2017-08-27] MEDS: Lisinopril-HCTZ 20-12.5mg TABLET PO SCH ×2 (08:40→21:42)
[2017-08-27] MEDS: Aspirin Enteric Coated 81 MG Tablet PO SCH (08:40)
--- NOTE | 2017-08-27 12:28 | Vascular/[facility] Progress Note ---
Date of Encounter: 08/27/17 Time of Encounter: 12:26 - Assessment and plan (1) PVD (peripheral vascular disease) Current Visit: Yes Status: Chronic Patient is status post left AKA. He is status post previous right AKA. The left AKA appears stable at postoperative day #2. Patient will now begin daily dressing changes to the patient's site. Once the second unit of blood is transfused the patient is medically cleared to return to the extended care facility. This may occur as early as today if the bed is available. (2) Chronic disease anemia Current Visit: Yes Status: Chronic The patient has acute on chronic anemia. The hemoglobin was approximate 6.1 today. Therefore 2 unit blood transfusion is ordered. The patient has completed the first unit and will receive a second unit this afternoon. A CBC will be rechecked tomorrow if the patient is still in the hospital. - Subjective Interval history: Patient is postoperative day #2 from a left neobi-jrm-odwn amputation. The patient complains of insomnia. He also complains of a sense of tightness from the left AKA dressing. Vital Signs, Last 4 Hours Temp Pulse Resp BP Pulse Ox 08/27/17 11:33 98.4 F 73 18 127/76 100 08/27/17 11:22 77 08/27/17 09:32 98.0 F 92 18 125/72 08/27/17 09:17 97.8 F 82 17 101/65 96 08/27/17 09:13 97.8 F 82 17 101/65 08/27/17 08:33 98.3 F 93 16 118/63 96 - Physical Examination General: Present: Conversant, No Apparent Distress HEENT: Present: Atraumatic, Normocephaly Neck: Absent: JVD Vascular: Present: Amputation(s) (Left AKA dressing was removed. The wound was inspected. The staple line is intact. There is no signs of ischemia or cyanosis. There is no active drainage or bleeding.) Results 08/27/17 02:39 08/26/17 03:56 Lab Results, Last 24 hours 08/27/17 02:39 WBC 7.3 Hgb 6.1 L Hct 18.6 L Plt Count 449 H Consult Discharge Plan - Plan Referrals: René Ruiz MD [Primary Care Provider] -
[2017-08-27] MEDS ORDERED: Furosemide 20 MG/2 ML VIAL IVP SCH (17:00)
[2017-08-28 01:16] LABS: Basophils # 0.1 K/mcL (0.0-0.2); Basophils % 0.7 %; Eosinophils # 0.1 K/mcL (0.0-0.6); Eosinophils % 1.7 %; Hematocrit 29.4 % (37.5-50.1); Immature Granulocytes % 0.3 % (0-4); Lymphocytes # 1.3 K/mcL (0.6-4.6); Mean Corpuscular HGB Conc 33.7 g/dL (31.6-35.5); Mean Corpuscular Hemoglobin 28.9 pg (28.0-33.3); Mean Corpuscular Volume 85.7 fL (83.0-100.0); Mean Platelet Volume 9.4 fL (9.4-12.4); Monocytes # 0.7 K/mcL (0.0-1.3); Monocytes % 9.2 %; Neutrophils # 5.3 K/mcL (1.6-8.9); Platelet Count 463 K/mcL (140-400); Red Blood Count 3.43 M/mcL (4.19-5.50); Red Cell Distribution Width 13.9 % (11.5-14.5); Segmented Neutrophils % 71.1 %
[2017-08-28 01:32] LABS: Hemoglobin 9.9 g/dL (12.9-16.9)
[2017-08-28] MEDS: *HR* Heparin 5,000 UNIT/ML VIAL SQ SCH ×2 (06:14→17:34)
[2017-08-28] MEDS: Lisinopril-HCTZ 20-12.5mg TABLET PO SCH ×2 (09:26→20:52)
[2017-08-28] MEDS: Aspirin Enteric Coated 81 MG Tablet PO SCH (09:26)
[2017-08-28] MEDS: amLODIPine 5 MG TABLET PO SCH (09:26)
--- NOTE | 2017-08-28 10:45 | Vascular/[facility] Progress Note ---
Date of Encounter: 08/28/17 Time of Encounter: 10:42 - Assessment and plan (1) PVD (peripheral vascular disease) Current Visit: Yes Status: Chronic Patient is status post left AKA. He is status post previous right AKA. The left AKA appears stable at postoperative day #3. Patient will now begin daily dressing changes to the patient's site. Patient is medically cleared for discharge and return to the extended care facility. His discharge is apparently contingent on administrative processing of his return to the ECF. (2) Chronic disease anemia Current Visit: Yes Status: Chronic The patient has acute on chronic anemia. The hemoglobin was approximate 9.9 today after a 2 unit transfusion yesterday. He has had an appropriate and cellular response to the transfusion. No further transfusions or lab values will be necessary to this time. The patient is awaiting administrative approval to return to the ECF. - Subjective Interval history: Patient is postoperative day #3 from a left tutwk-hmu-klsw amputation. The patient had an uneventful night. His pain is under good control. He was able to sleep. Vital Signs, Last 4 Hours Temp Pulse Resp BP Pulse Ox 08/28/17 09:27 74 116/65 08/28/17 09:22 67 08/28/17 08:20 98.8 F 88 18 128/56 98 - Physical Examination Vascular: Present: Amputation(s) (Left [id number] application site is clean and dry. The staple line is intact. There is no sign of infection.) Results 08/28/17 01:07 08/26/17 03:56 Lab Results, Last 24 hours 08/28/17 01:07 WBC 7.5 Hgb 9.9 L D Hct 29.4 L Plt Count 463 H Consult Discharge Plan - Plan Referrals: René Ruiz MD [Primary Care Provider] -
[2017-08-29] MEDS: *HR* OxyCODONE/APAP 5/325 TABLET PO PRN ×2 (03:34→20:44)
[2017-08-29] MEDS: *HR* Heparin 5,000 UNIT/ML VIAL SQ SCH ×2 (06:08→18:32)
[2017-08-29] MEDS: amLODIPine 5 MG TABLET PO SCH (08:34)
[2017-08-29] MEDS: Aspirin Enteric Coated 81 MG Tablet PO SCH (08:34)
[2017-08-29] MEDS: Lisinopril-HCTZ 20-12.5mg TABLET PO SCH (08:35)
--- NOTE | 2017-08-29 14:15 | Physician Discharge Referral ---
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 Priority: Primary Status: Chronic (2) Essential hypertension Priority: Secondary Status: Chronic (3) Cellulitis and abscess of foot Priority: Secondary Status: Chronic (4) Tobacco abuse Priority: Secondary Status: Chronic (5) Chronic anemia Priority: Secondary Status: Chronic (6) Moderate protein malnutrition Priority: Secondary Status: Chronic (7) Chronic hyponatremia Priority: Secondary Status: Chronic Prognosis: Fair Aware of Diagnosis: Patient, Family Aware of Prognosis: Patient, Family - Transfer Medications Home Medications: Aspirin Enteric Coated [Aspirin EC] 81 mg PO QAM 01/12/16 [History] Carvedilol [Coreg] 25 mg PO BIDWM #30 tablet 03/17/17 [Rx] Clopidogrel [Plavix] 75 mg PO DAILY #30 tablet 03/17/17 [Rx] Amlodipine Besylate 10 mg PO DAILY 07/05/17 [History] Lisinopril-HCTZ 20-12.5 [Prinzide 20-12.5] 1 tab PO BID 07/05/17 [History] Acetaminophen [Tylenol] 650 mg PO Q6HR PRN tab 07/11/17 [Rx] ALPRAZolam [Xanax 0.5 MG Tablet] 0.5 mg PO TID PRN 08/25/17 [History] OxyCODONE/APAP 5/325 [Percocet 5/325 MG] 1 each PO Q4HR PRN 08/25/17 [History] traMADol [Ultram] 50 mg PO QID 08/25/17 [History] Allergies/Adverse Reactions: 3 Allergy/AdvReac Type Severity Reaction Status Date / Time No Known Allergies Allergy Verified 03/24/17 10:14 - Respiratory Orders Smoking Cessation: Smoking cessation has been advised. For more information, call the [employer] Quit Line at 0-359-EPEG-NOW. - Ancillary Orders May use pressure relief devices daily prn, May go on DEAN w/family/respon libertarian w /meds at nurse discretion PRN, May have alcoholic beverages, May consult with Dentist, Managing Broker, Cylinder Die Machine Operator PRN - Advance Directives Living Will: No Power of Chair Spring Assembler: No Code Status: Full Code - Mobility Orders Other (Per PT recommendations.) CERTIFICATION: I certify that the transfer of the above named patient to an Extended Care Facility is necessary for the continuing treatment of the diagnosis listed. The above information is true and accurate reflection of patient's current condition. Confidential - Redisclosure prohibited without a patient's written consent.
[2017-08-29 19:53] VITALS: BP 84/51
== END 2017-08-29 21:25 | DRG 305 ==
LOC: SAMDAY 10:11 → 2NNU 10:15
PROVIDERS: ADMIT Surgery; ATTEND Surgery

== ENCOUNTER 2021-11-19 06:48 | Inpatient (IN) ==
[~2021-11-19 06:48] MED LIST: Vancomycin 1,000 MG, Sodium Chloride IRRigation 1,000 ML IR ONE
[2021-11-19] MEDS ORDERED: Vancomycin 500 MG in 0.9 % Sodium Chloride Mini Bag 100 ML IVPB ONE (07:36)
[2021-11-19] MEDS ORDERED: CeFAZolin Syr 2,000MG/20 ML 2,000 MG/20 ML SYRINGE IVPB ONE (07:36)
[2021-11-19] MEDS ORDERED: Ringers Solution, Lactated 1,000 ML IVC SCH (07:45)
[2021-11-19] MEDS ORDERED: Protamine Sulfate 50 MG/5 ML VIAL IVP ONE (08:02)
[2021-11-19] MEDS ORDERED: Heparin 1,000 UNITS/500 mL 1,000 ML ONE (08:02)
[2021-11-19] MEDS ORDERED: Bupivacaine-MPF 0.25% 10 ML VIAL ONE (08:02)
[2021-11-19] MEDS ORDERED: *HR* Propofol 200 MG/20 ML VIAL IVP ONE (08:39)
[2021-11-19] MEDS ORDERED: *HR* Succinylcholine 200 MG/10 ML VIAL IVP ONE (08:39)
[2021-11-19] MEDS ORDERED: Lidocaine -MPF 2% 5 ML VIAL ONE (08:39)
[2021-11-19] MEDS ORDERED: Lidocaine -MPF 4% 5 ML AMPUL ONE (08:39)
[2021-11-19] MEDS ORDERED: *HR* FentaNYL (PF) 100 MCG/2 ML VIAL ONE (08:39)
[2021-11-19] MEDS ORDERED: Ondansetron 4 MG/2 ML VIAL ONE (08:39)
[2021-11-19] MEDS ORDERED: Heparin 1,000 UNITS/500 mL 0 ML ONE (08:41)
[2021-11-19] MEDS ORDERED: *HR* Phenylephrine 10 MG/ML VIAL ONE (08:42)
[2021-11-19] MEDS ORDERED: *HR* Rocuronium Bromide 50 MG/5 ML VIAL ONE (10:01)
[2021-11-19] MEDS ORDERED: *HR* Heparin 5,000 UNIT/ML VIAL ONE (10:15)
[2021-11-19] MEDS ORDERED: Sugammadex Sodium 200 MG/2 ML VIAL IV ONE (11:56)
[2021-11-19] MEDS ORDERED: *HR* Nalbuphine 10 MG/ML AMPUL ONE (12:16)
[2021-11-19] MEDS ORDERED: *HR* Labetalol 20 MG/4 ML SYRINGE IVP ONE (12:18)
[2021-11-19] MEDS ORDERED: 0.9 % Sodium Chloride 1,000 ML IVC SCH (16:58)
[2021-11-19] MEDS ORDERED: Naloxone 0.4 MG/ML INJ IVP PRN (16:58)
[2021-11-19] MEDS ORDERED: *HR* OxyCODONE Immed Rel 5 MG TABLET PO PRN (16:58)
[2021-11-19] MEDS ORDERED: *HR* HYDROcodone/Acet 5/325 mg TABLET PO PRN (16:58)
[2021-11-19] MEDS ORDERED: *HR* Labetalol 20 MG/4 ML SYRINGE IVP PRN (16:58)
[2021-11-19] MEDS ORDERED: Ondansetron 4 MG/2 ML VIAL IVP PRN (16:58)
[2021-11-19] MEDS ORDERED: Acetaminophen 325 MG TABLET PO PRN (16:58)
[2021-11-19] MEDS: *HR* Metoprolol 5 MG/5 ML VIAL IVP SCH (17:37)
[2021-11-19 17:43] LABS: Basophils % 0.2 %; Hematocrit 40.4 % (37.5-50.1); Immature Granulocytes % 0.2 % (0-4); Lymphocytes # 0.3 K/mcL (0.6-4.6); Lymphocytes % 6.2 %; Mean Corpuscular HGB Conc 33.7 g/dL (31.6-35.5); Mean Corpuscular Hemoglobin 30.8 pg (28.0-33.3); Mean Corpuscular Volume 91.6 fL (83.0-100.0); Mean Platelet Volume 11.7 fL (9.4-12.4); Monocytes # 0.1 K/mcL (0.0-1.3); Monocytes % 1.5 %; Neutrophils # 5.1 K/mcL (1.6-8.9); Platelet Count 157 K/mcL (140-400); Red Blood Count 4.41 M/mcL (4.19-5.50); Red Cell Distribution Width 13.3 % (11.5-14.5); Segmented Neutrophils % 91.9 %; White Blood Count 5.5 K/mcL (4.3-11.1)
[2021-11-19 17:46] LABS: Hemoglobin 13.6 g/dL (12.9-16.9)
[2021-11-19] MEDS: CeFAZolin 2 GM/120 ML BAG IVPB SCH (17:55)
[2021-11-19] MEDS ORDERED: Vancomycin 500 MG in 0.9 % Sodium Chloride 250 ML IVPB ONE (21:00)
[2021-11-20] MEDS: CeFAZolin 2 GM/120 ML BAG IVPB SCH (00:03)
[2021-11-20] MEDS: *HR* Metoprolol 5 MG/5 ML VIAL IVP SCH ×3 (00:03→11:08)
[2021-11-20] MEDS ORDERED: *HR* Heparin 5,000 UNIT/ML VIAL SQ SCH ×2 (06:00)
[2021-11-20] MEDS ORDERED: Aspirin Enteric Coated 81 MG Tablet PO SCH (09:00)
[2021-11-20] MEDS ORDERED: lisinopriL 20 MG TABLET PO SCH (09:00)
[2021-11-20] MEDS ORDERED: hydroCHLOROthiazide 25 MG TABLET PO SCH (09:00)
[2021-11-20] MEDS ORDERED: PARoxetine 20 MG TABLET PO SCH (09:00)
[2021-11-20] MEDS ORDERED: Isovue-370 500 ML BOTTLE IVP ONE (09:07)
[2021-11-20] MEDS ORDERED: Gadolinium Contrast Agent (WT Based) IV PRN (10:26)
[2021-11-20 11:39] VITALS: TEMP 98.7; O2SAT 95
[2021-11-20 15:20] VITALS: BP 169/66; PULSE 73
== END 2021-11-20 14:18 | disposition short-term general hospital (02) | DRG 37 ==
LOC: SAMDAY 06:48 → 2NNU 16:59
PROVIDERS: ADMIT Surgery; ATTEND Surgery